=== PATIENT | female | born 1945 | race Caucasian/White ===

== ENCOUNTER 2023-10-15 10:47 | Outpatient (AMB) | payer MEDICARE, MEDICAID, SELFPAY ==
--- NOTE | 2023-10-15 11:24 | MHC.PC.OV ---
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 Intake Note: New patient visit Operating System Programmer Required: Yes Operating System Programmer Name: Daughter translating Accompanied by: Child Allergies pineapple Allergy (Mild, Uncoded 10/15/23 11:42) rash Medication List - Last Reconciled 10/15/23 by Merlyn Malone, [facility] amlodipine 10 mg PO DAILY apixaban (Eliquis) 5 mg PO BID cholecalciferol (vitamin D3) 1,250 mcg PO QWEEK clopidogrel 75 mg PO DAILY digoxin 125 mcg PO DAILY furosemide 40 mg PO DAILY lisinopril 40 mg PO DAILY metoprolol tartrate 50 mg PO DAILY omeprazole 20 mg PO DAILY Tobacco use date assessed: 10/15/23 Fall risk assessment: 2 + Falls in past year Last assessed Fall Risk: 10/15/23 Dental Screening Dental Screen Date: 10/15/23 Did you have a dental visit in the last 12 months?: No Did you have a dental problem in the last 6 months where you did not have access to dental care?: No Was dental information given to patient?: No HPI HPI Comments History of Present Illness Details 78-year-old, [place] speaking female with arthrosclerosis of [place] arteries of bilateral lower extremities with pain and right leg with rest, gastroparesis, cardiomyopathy, AFib, right foot osteomyelitis, 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 C/o phantom limb pain and neuropathic pain right lower extremity GERD - does not have any medications, reports acid reflux symptoms described as burning in her abdomen. Insomnia, tried melatonin and other OTC w/o relief. Gets about 3 hours per night, if that. Naps during the day. Has never had a sleep study. Dtr reports she gets disoriented, repeats herself often. [facility] Medical History (Updated 10/15/23 @ 15:35 [facility] CAD (coronary artery disease), s[place] coronary artery Amputated toe of right foot Family History (Updated 10/15/23 @ 12:14 by Roseanne Win CMA) Mother HTN (hypertension) Diabetes Cardiovascular disease Skin cancer Father Substance abuse Alcoholism Social History Housing: Apartment Patient Tobacco Use Status: Never used Tobacco e-Cigarette/Vaping Use: Never Used Second Hand Smoke Exposure: No service: No Current occupational status: retired Current occupational exposures/hazards: No Cognitive needs: Yes Hearing needs: Yes Vision needs: No Questionnaire PHQ-9 Over the last 2 weeks, how often have you been bothered by any of the following problems? 1. Little interest or pleasure in doing things: several days 2. Feeling down, depressed, or hopeless: several days 3. Trouble falling or staying asleep, or sleeping too much: nearly every day 4. Feeling tired or having little energy: nearly every day 5. Poor appetite or overeating: not at all 6. Feeling bad about yourself - or that you are a failure or have let yourself or your family down: not at all 7. Trouble concentrating on things, such as reading the newspaper or watching television: not at all 8. Moving or speaking so slowly that other people could have noticed. Or the opposite - being so fidgety or restless that you have been moving around a lot more than usual: several days 9. Thoughts that you would be better off or of hurting yourself in some way: not at all Total score: 9 Depression Screening Interpretation: Positive Depression Screening Follow-up: Follow-up Visit Requested Depression Screening Done: Yes 60418 - PHQ-9 Billing: Yes Source: Developed by Drs. Dat Mendes, Porsche Bah, Avila Matson and colleagues, with an educational frank from [employer]. Thrive Questionnaire Date Thrive assessed: 10/15/23 I am a: Parent/Caregiver What is your living situation today?: I have a steady place to live Within the past 12 months, did the food you bought not last and you didn't have the money to get more?: Never true Within the past 12 months, did you worry whether your food would run out before you got money to buy more?: Never true Do you have trouble paying for medicines?: No Do you have trouble getting transportation to medical appointments?: No Do you have trouble paying your heating and electricity bill?: No Do you have trouble taking care of your child, family member or friend?: Yes Do you have trouble with day-to-day activities such as bathing, preparing meals, shopping, managing finances, etc.?: No Are you currently unemployed and looking for a job?: No Are you interested in more education?: No Please select the resources that you would like help with: None Currently or been in a relationship where the following occur: no concerns reported THRIVE Score: 0 AUDIT C Alcohol Use Questionnaire (AUDIT-C) 1. How often do you have a drink containing alcohol?: Never 3. How often do you have six or more drinks on one occasion?: Never Total Score: 0 Score Reviewed/Action Taken: Yes NINO-7 AMB Questionnaire NINO-7 Date NINO - 7 assessed: 10/15/23 Feeling nervous, anxious, or on edge: 0 = Not at all Not being able to stop or control worryin = Not at all Worrying too much about different things: 2 = More than half the days Trouble relaxin = More than half the days Being so restless that it is hard to sit still: 1 = Several days Becoming easily annoyed or irritable: 1 = Several days Feeling afraid as if something awful might happen: 0 = Not at all Total NINO-7 score (0-4 normal; 5-9 mild; 10-14 moderate; 15-21 severe): 6 Source: Developed by Drs. Dat Mendes, Porsche Bah, Avila Matson and colleagues, with an educational frank from [employer]. NINO-7 Assessment Billing NINO-7 Assessment Tool: NINO-7 Assessment 84860 ACT Questionnaire In the past 4 weeks, how much of the time did your asthma keep you from getting as much done at work, school or at home?: Some of the time During the past 4 weeks, how often have you had shortness of breath?: 3-6 times a week During the past 4 weeks, how often did your asthma symptoms wake you up at night or earlier than usual in the morning?: Not at all During the past 4 weeks, how often have you had to use your rescue inhaler or nebulizer medication?: Not at all How would you rate your asthma control during the past 4 weeks?: Somewhat controlled ACT Interpretation: Positive Score: 19 Review of Systems Const All systems reviewed & are unremarkable except as noted in HPI and below Physical exam (Primary Care) Vital Signs: Last Vital Signs Temp 98.4 F 10/15/23 11:30 Pulse 83 10/15/23 11:30 Resp 14 10/15/23 11:30 BP 128/70 10/15/23 11:30 Pulse Ox 97 10/15/23 11:30 BMI result Body Mass Index 26.0 Tobacco/Smoking Status: Tobacco use Status Tobacco use date assessed 10/15/23 10/15/23 11:33 Patient Tobacco Use Status Never used Tobacco 10/15/23 11:33 e-Cigarette/Vaping Use Never Used 10/15/23 11:33 PHQ-9: PHQ-9 Score PHQ-9: Total score 9 10/15/23 12:17 Depression Screening Interpretation: Positive Depression Screening Follow-up: Follow-up Visit Requested Thrive Assessment: Date of Thrive Assessment Date Thrive assessed 10/15/23 10/15/23 12:10 Currently or been in a relationship where the following occur: no concerns reported Const Other: awake alert accompanied by dtr, pleasant, cooperative PAF, 1/6 systolic murmur LS with ins/exp wheeze, faint, throughout BLE nonpalp pedal pulses, skin w chronic hemosiderin. Right foot s/p great and 2nd toe amps with well healed surgical incision. No edema BLE Assessment and Plan Assessment & Plan (1) ILD (interstitial lung disease): Comment: Refer to pulmonology for further evaluation and treatment. Code(s): J84.9 - Interstitial pulmonary disease, unspecified (2) Lung nodules: Comment: Refer to pulmonology for further evaluation and treatment. These nodules were noted on imaging done in [place]. The family has brought these results and they will be scanned to the chart. Code(s): R91.8 - Other nonspecific abnormal finding of lung field (3) Daytime somnolence: Comment: We will check a sleep study. Code(s): R40.0 - Somnolence (4) Afib: Comment: Rate controlled on Eliquis and metoprolol. Refer to Cardiology Code(s): I48.91 - Unspecified atrial fibrillation Qualifiers: Atrial fibrillation type: paroxysmal Qualified Code(s): I48.0 - Paroxysmal atrial fibrillation (5) Diabetes mellitus type 2 with complications: Comment: Hemoglobin A1c 6.9% today. Not currently on any diabetic medications. There is a note of diabetic retinopathy this did in her previous medical records we will need to refer for diabetic eye exam. Code(s): E11.8 - Type 2 diabetes mellitus with unspecified complications (6) CHF (congestive heart failure): Comment: Euvolemic on exam today, maintained on amlodipine 10 mg p.o. daily, furosemide 40 mg p.o. daily, metoprolol 50 mg p.o. daily. Refer to cardiology Code(s): I50.9 - Heart failure, unspecified Qualifiers: Heart failure type: systolic Heart failure chronicity: chronic Qualified Code(s): I50.22 - Chronic systolic (congestive) heart failure (7) Hiatal hernia with GERD without esophagitis: Comment: Start on omeprazole 20 mg p.o. q.day. Return to office in 2 weeks to see if this is working. Code(s): K44.9 - Diaphragmatic hernia without obstruction or gangrene; K21.9 - Gastro-esophageal reflux disease without esophagitis (8) Secondary hypercoagulable state: Comment: Secondary to AFib currently maintained on Eliquis. Code(s): D68.69 - Other thrombophilia (9) Coronary artery disease with angina pectoris: Comment: Maintained on Plavix, lisinopril 40 mg p.o. daily, metoprolol, amlodipine. Last episode of angina occurring less than 12 months ago. Her med list does not include a statin. We will follow up with the daughter next week to see why she has not on a statin. Refer to Cardiology for further evaluation and treatment Code(s): I25.119 - Atherosclerotic heart disease of [place] coronary artery with unspecified angina pectoris Qualifiers: Coronary Disease-Associated Artery/Lesion type: [place] artery [place] vs. transplanted heart: s[place] heart Qualified Code(s): I25.119 - Atherosclerotic heart disease of [place] coronary artery with unspecified angina pectoris (10) Hyperlipidemia: Comment: We will check a direct LDL today as she has not fasting. She has not currently maintained on a statin at least not that is recorded on her med list today. We will review with daughter next week. LDL goal will be less than 70 Code(s): E78.5 - Hyperlipidemia, unspecified Qualifiers: Hyperlipidemia type: mixed hyperlipidemia Qualified Code(s): E78.2 - Mixed hyperlipidemia (11) Diabetic retinopathy: Comment: This was noted in her medical records. We will need to refer for diabetic eye exam Code(s): E11.319 - Type 2 diabetes mellitus with unspecified diabetic retinopathy without macular edema Qualifiers: Diabetes mellitus type: type 2 Diabetic retinopathy severity: with unspecified retinopathy severity Plan This note is constructed using voice recognition software. While every effort has been made to ensure accuracy in community advocate, still errors may have been included Sometimes, these errors may affect the content or meaning of the given sentence . Total time spent caring for the patient today was 60 minutes. This includes time spent before the visit reviewing the chart, time spent during the visit, and time spent after the visit on documentation Orders: Orders LDL Cholesterol Direct Today E11.8 - Type 2 diabetes mellitus with unspecified complications, I25.10 - Atherosclerotic heart disease of [place] coronary artery without angina pectoris Hemoglobin A1c Today E11.8 - Type 2 diabetes mellitus with unspecified complications, I25.10 - Atherosclerotic heart disease of [place] coronary artery without angina pectoris Parathyroid Hormone Intact Today E11.8 - Type 2 diabetes mellitus with unspecified complications, I25.10 - Atherosclerotic heart disease of [place] coronary artery without angina pectoris RT home sleep study Today I48.91 - Unspecified atrial fibrillation, R40.0 - Somnolence Comprehensive Met. Panel Today E11.8 - Type 2 diabetes mellitus with unspecified complications, I25.10 - Atherosclerotic heart disease of [place] coronary artery without angina pectoris Microalbumin, Random (w Creat) Today E11.8 - Type 2 diabetes mellitus with unspecified complications, I25.10 - Atherosclerotic heart disease of [place] coronary artery without angina pectoris TSH reflex Free T4 Today E11.8 - Type 2 diabetes mellitus with unspecified complications, I25.10 - Atherosclerotic heart disease of [place] coronary artery without angina pectoris Vitamin D 1,25 dihydroxy Today E11.8 - Type 2 diabetes mellitus with unspecified complications, I25.10 - Atherosclerotic heart disease of [place] coronary artery without angina pectoris Magnesium Today E11.8 - Type 2 diabetes mellitus with unspecified complications, I25.10 - Atherosclerotic heart disease of [place] coronary artery without angina pectoris Phosphorus Today E11.8 - Type 2 diabetes mellitus with unspecified complications, I25.10 - Atherosclerotic heart disease of [place] coronary artery without angina pectoris Referrals Pulmonology Referral J84.9 - Interstitial pulmonary disease, unspecified, R91.8 - Other nonspecific abnormal finding of lung field Cardiology Referral I25.10 - Atherosclerotic heart disease of [place] coronary artery without angina pectoris, I48.91 - Unspecified atrial fibrillation, I50.9 - Heart failure, unspecified Medications: New omeprazole 20 mg PO DAILY 90 caps 1RF Coding Level of Care Code New Pt Level 5 (55426) Diagnoses ILD (interstitial lung disease) J84.9 Lung nodules R91.8 Daytime somnolence R40.0 Paroxysmal atrial fibrillation I48.0 Atrial fibrillation type: paroxysmal Diabetes mellitus type 2 with complications E11.8 Chronic systolic congestive heart failure I50.22 Heart failure type: systolic Heart failure chronicity: chronic Hiatal hernia with GERD without esophagitis K44.9; K21.9 Secondary hypercoagulable state D68.69 Coronary artery disease involving [place] coronary artery of [place] heart with angina pectoris I25.119 Coronary Disease-Associated Artery/Lesion type: [place] artery [place] vs. transplanted heart: [place] heart Mixed hyperlipidemia E78.2 Hyperlipidemia type: mixed hyperlipidemia Diabetic retinopathy E11.319 Diabetes mellitus type: type 2 Diabetic retinopathy severity: with unspecified retinopathy severity Additional Codes NINO-7 Assessment Billing - NINO-7 Assessment Tool: NINO-7 Assessment [id number] ([id number])
[2023-10-15 11:30] VITALS: BP 128/70; PULSE 83; RESP 14; TEMP 36.9; O2SAT 97; BMI 26.0
== END 2023-10-15 12:19 | disposition home or self-care (01) ==
PROVIDERS: PCP Nurse Practitioner Family; Visit Provider Nurse Practitioner Family
DX: J84.9 Interstitial pulmonary disease, unspecified (principal); I48.0 Paroxysmal atrial fibrillation; E11.8 Type 2 diabetes mellitus with unspecified complications; I50.22 Chronic systolic (congestive) heart failure; D68.69 Other thrombophilia; I25.119 Atherosclerotic heart disease of native coronary artery with unspecified angina pectoris; E11.319 Type 2 diabetes mellitus with unspecified diabetic retinopathy without macular edema; R91.8 Other nonspecific abnormal finding of lung field; R40.0 Somnolence; K44.9 Diaphragmatic hernia without obstruction or gangrene; K21.9 Gastro-esophageal reflux disease without esophagitis; E78.2 Mixed hyperlipidemia
CPT/HCPCS: 99205

== ENCOUNTER 2023-10-15 12:04 | Outpatient (REF) | payer MEDICARE, SELFPAY ==
[2023-10-15 14:46] LABS: Estimated Average Glucose 151 mg/dL; Hemoglobin A1c % 6.9 % (<6.0)
[2023-10-15 15:37] LABS: Creatinine Urine 128.73 mg/dL; Microalbum/Creatinine Ratio Ur 83.8 ug/mg cr (<30)
[2023-10-15 15:47] LABS: Alanine Aminotransferase 15 U/L (0-31); Albumin Level 4.1 g/dL (3.5-5.0); Alkaline Phosphatase 94 U/L (39-117); Anion Gap 16 (12-20); Aspartate Amino Transferase 24 U/L (5-31); Bilirubin Total 0.7 mg/dL (0.0-1.0); Blood Urea Nitrogen 17 mg/dL (9-16); Calcium 9.4 mg/dL (8.4-10.2); Carbon Dioxide 23 mmol/L (22-29); Chloride 106 mmol/L (96-108); Estimated Glomerular Filt Rate 58; Glucose Random 195 mg/dL (60-115); Magnesium 2.2 mg/dL (1.6-2.6); Phosphorus 3.7 mg/dL (2.7-4.5); Potassium 3.9 mmol/L (3.3-5.1); Sodium 141 mmol/L (135-145)
[2023-10-15 15:50] LABS: Parathyroid Hormone Intact 97.8 pg/mL (8.7-77.1)
[2023-10-15 15:53] LABS: TSH reflex Free T4 1.37 uIU/mL (0.32-4.0)
[2023-10-16 13:04] LABS: LDL Cholesterol Direct 135 mg/dL (<100)
[2023-10-20 20:03] LABS: VITAMIN D (1,25 OH) D3 27 pg/mL; Vit D (1,25-Dihydroxy) Total 27 pg/mL (18-72); Vitamin D (1,25 OH) D2 <8 pg/mL
== END 2023-10-15 12:05 | disposition home or self-care (01) ==
LOC: HO.WFDLDS 12:04
PROVIDERS: Visit Provider Nurse Practitioner Family
DX: E11.8 Type 2 diabetes mellitus with unspecified complications (principal); I25.10 Atherosclerotic heart disease of native coronary artery without angina pectoris
CPT/HCPCS: 36415; 80053; 82043; 82570; 82652; 83036; 83721; 83735; 83970; 84100; 84443

== ENCOUNTER 2023-10-22 09:50 | Outpatient (AMB) | payer MEDICARE, MEDICAID, SELFPAY ==
--- NOTE | 2023-10-22 09:54 | MHC.PC.OV ---
Vital Signs 10/22/23 10:02 Height 5 ft 1 in Weight 141 lb 4 oz BMI 26.7 BP 124/83 Blood Pressure Location Lt brachial Position Sitting Respiration 11 L Pulse 67 Pulse Source Pulse Oximeter Temp 97.7 F Temp Source Temporal Artery Scan Pulse Oximetry (%) 96 Oxygen Delivery Method Room Air Intake Visit Reasons: follow up labs Intake Note: Patient is here with her daughter, Tracey. Patient is here to review labs. Tracey would like to know if the provider can send all of the patients medications- so the patient will not run out. Gas Well Pumper Required: Yes Gas Well Pumper Language: Asparagus Cutter Name: Daughter- Tracey Accompanied by: Daughter Allergies pineapple Allergy (Mild, Uncoded 10/22/23 10:15) rash Medication List - Last Reconciled 10/22/23 by DANO Tobias- amlodipine 10 mg PO DAILY apixaban (Eliquis) 5 mg PO BID cholecalciferol (vitamin D3) 1,250 mcg PO QWEEK clopidogrel 75 mg PO DAILY digoxin 125 mcg PO DAILY furosemide 40 mg PO DAILY lisinopril 40 mg PO DAILY metoprolol tartrate 50 mg PO DAILY omeprazole 20 mg PO DAILY Tobacco use date assessed: 10/15/23 Dental Screening Dental Screen Date: 10/15/23 HPI HPI Comments History of Present Illness Details 78-year-old, [place] speaking female with 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 of bilateral lower extremities with pain and right leg with rest, gastroparesis, cardiomyopathy, AFib, right foot osteomyelitis, right foot 1st and 2nd toe amputation, PMR, left ankle osteoarthritis, cervical myalgia, hyperlipidemia, bilateral lower extremity edema, diabetes type 2, diabetic retinopathy, diabetic neuropathy, GERD, CHF, angina, chronic interstitial lung disease, lung nodules, hiatal hernia, CKD3 with secondary hyperparathyroidism Health Maintenance: Mammo Colon DEXA Pap HgA1c 10/16/2023 6.9% DME Specialists: [facility] Here today to f/u: Did not start PPI - states pharm did not call her. Pt does report burning is better w/o intervention. Has appt w/ Sleep Med, Cards, Pulm Thinks scheduled in November and January. New complaint today of azam finger on the left hand, ring finger, has been present for years. Creates difficulty in picking things up. Does have pain at times. Has DM retinopathy, needs referral to Optho Pt and dtr unsure why she is not on statin; has never had s/e to their knowledge. Labs from October 15 show normal electrolytes BUN 17, creatinine 0.9, random glucose 195, phosphorus, magnesium, normal calcium, normal LFTs, LDL 135, vitamin-D normal, normal TSH, elevated parathyroid hormone 97.8, elevated urine microalbumin creatinine ratio 83.8 [facility] Medical History (Updated 10/22/23 @ 13:20 by Merlyn Malone, [facility]) CAD (coronary artery disease), [place] coronary artery Amputated toe of right foot Family History (Updated 10/15/23 @ 12:14 by Roseanne Win [facility]) Mother HTN (hypertension) Diabetes Cardiovascular disease Skin cancer Father Substance abuse Alcoholism Social History Housing: Apartment Patient Tobacco Use Status: Never used Tobacco e-Cigarette/Vaping Use: Never Used Second Hand Smoke Exposure: No service: No Current occupational status: retired Current occupational exposures/hazards: No Cognitive needs: Yes Hearing needs: Yes Vision needs: No Questionnaire Thrive Questionnaire Date Thrive assessed: 10/15/23 NINO-7 AMB Questionnaire NINO-7 Date NINO - 7 assessed: 10/15/23 Source: Developed by Drs. Dat Mendes, Porsche Bah, Avila Matson and colleagues, with an educational frank from [employer]. Review of Systems Const All systems reviewed & are unremarkable except as noted in HPI and below Physical exam (Primary Care) Vital Signs: Last Vital Signs Temp 97.7 F 10/22/23 10:02 Pulse 67 10/22/23 10:02 Resp 11 L 10/22/23 10:02 BP 124/83 10/22/23 10:02 Pulse Ox 96 10/22/23 10:02 Oxygen Delivery Method Room Air 10/22/23 10:02 BMI result Body Mass Index 26.7 Tobacco/Smoking Status: Tobacco use Status Tobacco use date assessed 10/15/23 10/22/23 09:54 Patient Tobacco Use Status Never used Tobacco 10/22/23 09:54 e-Cigarette/Vaping Use Never Used 10/22/23 09:54 Thrive Assessment: Date of Thrive Assessment Date Thrive assessed 10/15/23 10/22/23 09:54 Advance Care Planning discussion: Exists, not on file Date of discussion: 10/22/23 Who was present: dtr and patient Forms completed: Health Care Proxy and MOLST Time spent: 1-15 minutes, not on file Actual minutes spent: 5 Const Other: awake alert accompanied by dtr, pleasant, cooperative PAF, 1/6 systolic murmur LS with ins/exp wheeze, faint, throughout BLE nonpalp pedal pulses, skin w chronic hemosiderin. Right foot s/p great and 2nd toe amps with well healed surgical incision. No edema BLE Bilat hands w/ dupytrens contractures, Left ring finger mostly effected Assessment and Plan Assessment & Plan (1) Diabetic retinopathy: Comment: This was noted in her medical records. refer for diabetic eye exam Code(s): E11.319 - Type 2 diabetes mellitus with unspecified diabetic retinopathy without macular edema Qualifiers: Diabetes mellitus type: type 2 Diabetic retinopathy severity: with unspecified retinopathy severity Diabetes mellitus macular edema: macular edema presence unspecified Laterality: unspecified laterality Qualified Code(s): E11.319 - Type 2 diabetes mellitus with unspecified diabetic retinopathy without macular edema (2) Dupuytren's contracture of both hands: Comment: discussed treatment options, injections, referrals, OT. Declines all of the above Code(s): M72.0 - Palmar fascial fibromatosis [Dupuytren] (3) Secondary hyperparathyroidism (of renal origin): Comment: Labs from October 16 2023 show normal electrolytes BUN 17, creatinine 0.9,, random glucose 195 phosphorus, magnesium, normal calcium, vitamin-D pending, elevated parathyroid hormone 97.8, elevated urine microalbumin creatinine ratio 83.8 Code(s): N25.81 - Secondary hyperparathyroidism of renal origin (4) CKD (chronic kidney disease) stage 3, GFR 30-59 ml/min: Comment: 10/2023 eGFR 58 Labs from October 16 2023 show normal electrolytes BUN 17, creatinine 0.9,, random glucose 195 phosphorus, magnesium, normal calcium, vitamin-D pending, elevated parathyroid hormone 97.8, elevated urine microalbumin creatinine ratio 83.8 Code(s): N18.30 - Chronic kidney disease, stage 3 unspecified Qualifiers: Chronic kidney disease stage 3 subtype: stage 3a (GFR 45-59) Qualified Code(s): N18.31 - Chronic kidney disease, stage 3a (5) Hyperlipidemia: Comment: LDL goal will be less than 70 4/12/24 LDL 134 Start Rosuvastatin 10mg po QD. Repeat labs in 3 months, follow w/ Cards Code(s): E78.5 - Hyperlipidemia, unspecified Qualifiers: Hyperlipidemia type: mixed hyperlipidemia Qualified Code(s): E78.2 - Mixed hyperlipidemia (6) Amputated toe of right foot: Comment: current, right foot 1st and 2nd toe amputation Code(s): S98.131A - Complete traumatic amputation of one right lesser toe, initial encounter (7) Secondary hyperaldosteronism: Comment: related to CHF, on furosemide Referred to Cards Code(s): E26.1 - Secondary hyperaldosteronism (8) Hiatal hernia with GERD without esophagitis: Comment: Start on omeprazole 20 mg p.o. q.day. -- Resent today. Code(s): K44.9 - Diaphragmatic hernia without obstruction or gangrene; K21.9 - Gastro-esophageal reflux disease without esophagitis Orders: Orders Comprehensive [place]. Panel Fast 01/03/24 E11.8 - Type 2 diabetes mellitus with unspecified complications, E26.1 - Secondary hyperaldosteronism, E78.2 - Mixed hyperlipidemia, I50.22 - Chronic systolic (congestive) heart failure, N18.31 - Chronic kidney disease, stage 3a, N25.81 - Secondary hyperparathyroidism of renal origin Lipid Panel 01/03/24 E11.8 - Type 2 diabetes mellitus with unspecified complications, E26.1 - Secondary hyperaldosteronism, E78.2 - Mixed hyperlipidemia, I50.22 - Chronic systolic (congestive) heart failure, N18.31 - Chronic kidney disease, stage 3a, N25.81 - Secondary hyperparathyroidism of renal origin Hemoglobin A1c 01/03/24 E11.8 - Type 2 diabetes mellitus with unspecified complications, E26.1 - Secondary hyperaldosteronism, E78.2 - Mixed hyperlipidemia, I50.22 - Chronic systolic (congestive) heart failure, N18.31 - Chronic kidney disease, stage 3a, N25.81 - Secondary hyperparathyroidism of renal origin Referrals Ophthalmology Referral E11.319 - Type 2 diabetes mellitus with unspecified diabetic retinopathy without macular edema Medications: New rosuvastatin 10 mg PO DAILY 90 tabs 1RF amlodipine 10 mg PO DAILY 90 tabs 1RF apixaban (Eliquis) 5 mg PO BID 180 tabs 0RF cholecalciferol (vitamin D3) 1,250 mcg PO QWEEK 12 caps 0RF furosemide 40 mg PO DAILY 90 tabs 0RF metoprolol tartrate 50 mg PO DAILY 90 tabs 0RF clopidogrel 75 mg PO DAILY 90 tabs 0RF digoxin 125 mcg PO DAILY 90 tabs 0RF lisinopril 40 mg PO DAILY 90 tabs 0RF Refilled omeprazole 20 mg PO DAILY 90 caps 1RF Patient Instructions: FU IN 6 MONTHS, WITH REPEAT LABS 1 WEEK BEFORE, CHRONIC CONDITION MGMT, SOONER PRN Diabetes & CHF Goal: maintain a1c < 7% without medication; monitor weight at home daily & report gains of > 3lbs in 1 day or 5 lbs/1 week. Follow up with Cardiology & take meds as directed. Barrier: language, cognition Coding Level of Care Code Est Pt Level 5 (39565) Complex EM visit Add On G2211 Diagnoses Diabetic retinopathy associated with type 2 diabetes mellitus, macular edema presence unspecified, unspecified laterality, unspecified retinopathy severity E11.319 Diabetes mellitus type: type 2 Diabetic retinopathy severity: with unspecified retinopathy severity Diabetes mellitus macular edema: macular edema presence unspecified Laterality: unspecified laterality Dupuytren's contracture of both hands M72.0 Secondary hyperparathyroidism (of renal origin) N25.81 Stage 3a chronic kidney disease N18.31 Chronic kidney disease stage 3 subtype: stage 3a (GFR 45-59) Mixed hyperlipidemia E78.2 Hyperlipidemia type: mixed hyperlipidemia Amputated toe of right foot S98.131A Secondary hyperaldosteronism E26.1 Hiatal hernia with GERD without esophagitis K44.9; K21.9 Additional Codes Vital Signs *Quality* - Advance Care Planning discussion: Exists, not on file ([id number]) Vital Signs *Quality* - Time spent: 1-15 minutes, not on file ([id number])
[2023-10-22 10:02] VITALS: BP 124/83; PULSE 67; RESP 11; TEMP 36.5; O2SAT 96; BMI 26.7
== END 2023-10-22 11:01 | disposition home or self-care (01) ==
PROVIDERS: PCP Nurse Practitioner Family; Visit Provider Nurse Practitioner Family
DX: E11.319 Type 2 diabetes mellitus with unspecified diabetic retinopathy without macular edema (principal); N25.81 Secondary hyperparathyroidism of renal origin; N18.31 Chronic kidney disease, stage 3a; S98.131A Complete traumatic amputation of one right lesser toe, initial encounter; E26.1 Secondary hyperaldosteronism; M72.0 Palmar fascial fibromatosis [Dupuytren]; E78.2 Mixed hyperlipidemia; K44.9 Diaphragmatic hernia without obstruction or gangrene; K21.9 Gastro-esophageal reflux disease without esophagitis; Z00.00 Encounter for general adult medical examination without abnormal findings
CPT/HCPCS: 1124F; 99215; G2211

== ENCOUNTER 2023-10-27 14:19 | Outpatient (AMB) | payer MEDICARE, MEDICAID, SELFPAY ==
--- NOTE | 2023-10-27 14:22 | A.OFFVIS_ITS ---
Vital Signs 10/27/23 14:23 Height 5 ft 1 in Weight 141 lb 8 oz BMI 26.7 BP 118/74 Blood Pressure Location Lt brachial Position Sitting Pulse 71 Pulse Source Pulse Oximeter Pulse Oximetry (%) 96 Oxygen Delivery Method Room Air Intake Visit Reasons: Interstitial pulmonary disease Allergies pineapple Allergy (Mild, Uncoded 10/27/23 14:26) rash HPI HPI Interstitial pulmonary disease: Details: Marleni is a pleasant 78 year old female, never smoker, with underlying pulmonary nodules, interstitial lung disease, CAD, afib on eliquis, DMII, CHF, CKDIII and GERD. She was referred for pulmonary evaluation for evaluation of interstitial lung disease and pulmonary nodules. She recently moved from [place] and [facility] She reports symptoms of dyspnea on minimal exertion, wheezing and dry cough that has been present for the last two years. She states symptoms started after diagnosis of afib and CHF, which initially presented with BLE and orthopnea, significantly improved since initiating lasix. Per referral, ILD and pulmonary nodules, no prior report or imaging in chart. She denies any prior history of asthma. She denies any occupational exposures. She denies pertinent family history. She does report a prior diagnosis of lupus, not under the care of rheumatology. [facility] Medical History (Updated 10/27/23 @ 16:30 by Aye Wiseman NP) CAD (coronary artery disease), [place] coronary artery Amputated toe of right foot Family History (Updated 10/15/23 @ 12:14 by Roseanne Win CMA) Mother HTN (hypertension) Diabetes Cardiovascular disease Skin cancer Father Substance abuse Alcoholism Social History Housing: Apartment Patient Tobacco Use Status: Never used Tobacco e-Cigarette/Vaping Use: Never Used Second Hand Smoke Exposure: No service: No Current occupational status: retired Current occupational exposures/hazards: No Cognitive needs: Yes Hearing needs: Yes Vision needs: No Review of Systems Const Denies chills, Denies excessive sweating, Denies fever(s), Denies headache(s) and Denies night sweats Eyes Denies dry eyes, Denies irritation and Denies itchy eyes ENT Reports Normal hearing present, Denies headache(s), Denies nasal congestion, Denies nasal discharge, Denies post nasal drip and Denies sore throat Card Denies chest pain, Denies chest pain at rest, Denies chest pain with activity, Denies claudication, Denies leg edema, Denies orthopnea and Denies paroxysmal nocturnal dyspnea Resp Denies chest congestion, Denies excessive phlegm production, Denies pain on inspiration, Denies pain with cough and Denies stridor Musc Denies myalgias Neuro Reports Normal hearing present and Denies headache(s) Endo Denies excessive sweating Benji/Lymph Denies lymphadenopathy Aller/Immun Denies itchy eyes and Denies seasonal rhinorrhea Physical Exam Vital Signs: Last Vital Signs Pulse 71 10/27/23 14:23 BP 118/74 10/27/23 14:23 Pulse Ox 96 10/27/23 14:23 Oxygen Delivery Method Room Air 10/27/23 14:23 BMI result Body Mass Index 26.7 Const General: cooperative, healthy appearing, comfortable, no acute distress, well developed and alert Orientation/consciousness: patient oriented x3 Limitations: ambulation with cane HEENT Head: Yes normal to inspection, Yes normocephalic and Yes atraumatic Ears: hearing grossly normal bilaterally and external ears normal Eyes General: appearance normal, both eyes and all related structures Eyelids: Yes eyelids normal Sclerae: sclerae normal EOM: EOMs intact bilaterally Neck Neck: Yes normal visual inspection and Yes no lymphadenopathy Lymphatic: no lymphadenopathy noted Chest Chest palpation & inspection: normal inspection of the chest Resp Effort & Inspection: normal respiratory effort, able to speak in complete sentences, no audible wheezes, no cough, no stridor, not tachypneic, no tripod positioning and no use of accessory muscles Auscultation: clear to auscultation bilaterally Cardio Jugular venous distension: no JVD Skin Other: warm, dry General skin exam: no rashes or lesions noted Neuro General: patient oriented x3 Cranial nerves: Yes Normal hearing present Cognition (Neuro): normal cognition Gait exam (Neuro): Normal gait present Extrem General: Yes normal to inspection, Yes capillary refill normal, Yes no clubbing, cyanosis or edema and Yes no pedal edema Psych Appearance: grossly normal and well kempt Speech and movement: Normal speech and movement present and Clear speech present Affect: normal affect Attitude: cooperative Thought process: Normal thought process present Thought content: Normal thought content present Insight: Good insight present (Psych) Judgement: Good judgement present (Psych) Office Procedures 6 Minute Walk Time:: 14:55 SPO2 % at rest: 95 Pulse at rest: 77 SPO2 % during excercise: 90 Pulse during excercise: 131 SPO2 % after excercise: 91 Pulse after excercise: 102 Distance in yards walked: 10 Beto Score: 4 Performance Observations:: Patient walked with the assistance of a cane on level ground for approx 10 yards. O2 saturation decreased to 90% and pulse rate was elevated to 131. Patient complained of low back pain and the walk was stopped. Patient denied shortness of breath or chest pain. After sitting O2 sat increased to 91 and pulse rate decreased to 102. No supplemental O2 was used. [id number] - 6 Minute Walk Assessment & Plan Assessment & Plan (1) ILD (interstitial lung disease): Comment: Refer to pulmonology for further evaluation and treatment. Code(s): J84.9 - Interstitial pulmonary disease, unspecified Category: Medical (2) Lung nodules: Comment: Refer to pulmonology for further evaluation and treatment. These nodules were noted on imaging done in [place]. The family has brought these results and they will be scanned to the chart. Code(s): R91.8 - Other nonspecific abnormal finding of lung field Category: Medical (3) Dyspnea: Code(s): R06.00 - Dyspnea, unspecified Category: Medical (4) CHF (congestive heart failure): Comment: Euvolemic on exam today, maintained on amlodipine 10 mg p.o. daily, furosemide 40 mg p.o. daily, metoprolol 50 mg p.o. daily. Refer to cardiology Code(s): I50.9 - Heart failure, unspecified Category: Medical Qualifiers: Heart failure type: systolic Heart failure chronicity: chronic Qualified Code(s): I50.22 - Chronic systolic (congestive) heart failure Plan Patient referred for evaluation of pulmonary nodules, ILD and dyspnea on exertion. Will send for PFT to assess for any restrictive or obstructive defect. Will also send for chest CT to evaluate of ILD. 6MWT attempted and patient could not complete due to lower back pain and elevated HR, lowest oxyen saturation 90, highest HR 131 bpm. She does have an upcoming evaluation with cardiology to establish care. All questions were answered and patient is in agreement of plan. Will follow up to review results or sooner if needed. Orders: Orders AMB 6 minute walk Today J84.9 - Interstitial pulmonary disease, unspecified CT chest wo IV con Today J84.9 - Interstitial pulmonary disease, unspecified PFT pulmonary function test Today J84.9 - Interstitial pulmonary disease, unspecified, R06.00 - Dyspnea, unspecified Coding Level of Care Code New Pt Level 4 (68925) Diagnoses ILD (interstitial lung disease) J84.9 Lung nodules R91.8 Dyspnea R06.00 Chronic systolic congestive heart failure I50.22 Heart failure type: systolic Heart failure chronicity: chronic CPT Codes Coding ([id number])
[2023-10-27 14:23] VITALS: BP 118/74; PULSE 71; O2SAT 96; BMI 26.7
[2023-10-27 15:43] VITALS: PULSE 77; O2SAT 95
== END 2023-10-27 15:11 | disposition home or self-care (01) ==
PROVIDERS: PCP Nurse Practitioner Family; Visit Provider Nurse Practitioner Family
DX: J84.9 Interstitial pulmonary disease, unspecified (principal); R91.8 Other nonspecific abnormal finding of lung field; R06.00 Dyspnea, unspecified; I50.22 Chronic systolic (congestive) heart failure
CPT/HCPCS: 94618; 99204

== ENCOUNTER → 2023-10-27 14:19 | Outpatient (BNVA) | payer MEDICARE, MEDICAID, SELFPAY | PROVIDERS: PCP Nurse Practitioner Family; Visit Provider Nurse Practitioner Family | DX: J84.9 Interstitial pulmonary disease, unspecified (principal); R91.8 Other nonspecific abnormal finding of lung field; R06.00 Dyspnea, unspecified; I50.22 Chronic systolic (congestive) heart failure | CPT/HCPCS: 94618; 99202 ==

== ENCOUNTER → 2023-11-23 14:50 | Outpatient (REF) | payer MEDICARE, MEDICAID, SELFPAY | LOC: HO.SL 14:50 | PROVIDERS: PCP Nurse Practitioner Family; Visit Provider Nurse Practitioner Family | DX: R40.0 Somnolence (principal); I48.91 Unspecified atrial fibrillation; G47.33 Obstructive sleep apnea (adult) (pediatric) | CPT/HCPCS: 95806 ==

== ENCOUNTER → 2023-11-23 14:56 | Outpatient (BNV) | payer MEDICARE, MEDICAID, SELFPAY | PROVIDERS: PCP Nurse Practitioner Family; Visit Provider Internal Medicine | DX: G47.33 Obstructive sleep apnea (adult) (pediatric) (principal) | CPT/HCPCS: 95806 ==

== ENCOUNTER 2023-12-08 07:34 | Outpatient (REF) | payer MEDICARE, MEDICAID, SELFPAY ==
--- NOTE | ~2023-12-08 | CT_ITS ---
EXAMINATION: CT CHEST WITHOUT CONTRAST CLINICAL INFORMATION: Interstitial pulmonary disease. COMPARISON: None available. TECHNIQUE: Multidetector volumetric CT imaging of the chest was done. Axial MIP volume rendering provided. Sagittal and coronal reformatted images were obtained. This CT examination was performed using dose optimization techniques as appropriate, variously including the following: *Automated exposure control *Adjustment of mA and/or kV according to patient size (this includes techniques or standardized protocols for targeted exams where dose is matched to indication/reason for exam; i.e. extremities or head) *Use of iterative reconstruction technique DLP: 140 mGy-cm FINDINGS: LUNGS AND PLEURA: Trachea and central airways are widely patent and normal in caliber. Mild centrilobular emphysema. Mild subpleural reticular opacities in both lungs without zonal predominance. Associated small subpleural cystic lucencies which are difficult to further characterize and could represent sites of traction bronchiolectasis, early honeycomb cyst formation and/or mild paraseptal emphysematous changes. Since there is no basilar predominance of disease, this is not a usual interstitial pneumonitis disease pattern. Lungs have mosaic attenuation. The heterogeneous lucencies in both lungs are consistent with air trapping phenomenon from airways inflammation. No pleural effusion. PULMONARY NODULES: 0.4 cm calcified granuloma in the lateral left lower lobe. Punctate calcified granuloma at the anteromedial right lung apex. 0.2 cm noncalcified nodule in the periphery of the left lower lobe (image 129, series 11). Based on Fleischner Society guidelines, no chest CT imaging follow-up is recommended. No suspicious pulmonary nodule or mass. CARDIOVASCULAR: The heart size is normal. No pericardial effusion. Atherosclerotic calcification of the thoracic aorta without aneurysm. The pulmonary artery trunk is mildly enlarged; this could be a manifestation of pulmonary arterial hypertension. CORONARY ARTERY CALCIFICATION: Multivessel coronary artery atherosclerotic calcification is present. MEDIASTINUM AND LOWER NECK: No mediastinal mass. The esophagus and thyroid gland are unremarkable. LYMPHATICS: There are lymph nodes within the mediastinum that measure up to 1 cm short axis dimension. No suspicious-appearing lymph nodes. No evidence of hilar or axillary lymphadenopathy. UPPER ABDOMEN: There is atherosclerotic calcification of the partially visualized abdominal aorta and splenic artery. SKELETAL: Bones are diffusely osteopenic. Multilevel osteophyte or enthesophyte formation of the spine. No acute or suspicious osseous abnormality. CT/CT chest wo IV con IMPRESSION: * Mild pulmonary emphysema. * Mild interstitial disease without a zonal predominance. Also, lungs have mosaic attenuation, suggestive of air trapping phenomenon, as may be seen in the setting of inflammation of airways. Consider possibility of manifestations of hypersensitivity pneumonitis. * No centrilobular nodules, groundglass changes or consolidation to suggest acute pneumonitis * Atherosclerotic disease of thoracic aorta and coronary arteries. * The pulmonary artery trunk is mildly enlarged; this could be a manifestation of pulmonary arterial hypertension.
== END 2023-12-08 07:35 | disposition home or self-care (01) ==
LOC: HO.CT 07:34
PROVIDERS: PCP Nurse Practitioner Family; Visit Provider Nurse Practitioner Family
DX: J84.9 Interstitial pulmonary disease, unspecified (principal)
CPT/HCPCS: 71250

== ENCOUNTER → 2023-12-19 19:30 | Outpatient (BNV) | payer MEDICARE, MEDICAID, SELFPAY | PROVIDERS: PCP Nurse Practitioner Family; Visit Provider Psychiatry & Neurology Neurology | DX: G47.33 Obstructive sleep apnea (adult) (pediatric) (principal) | CPT/HCPCS: 95811 ==

== ENCOUNTER → 2023-12-19 19:30 | Outpatient (REF) | payer MEDICARE, MEDICAID, SELFPAY | LOC: HO.SL 19:30 | PROVIDERS: PCP Nurse Practitioner Family; Visit Provider Nurse Practitioner Family | DX: G47.33 Obstructive sleep apnea (adult) (pediatric) (principal) | CPT/HCPCS: 95811 ==

== ENCOUNTER 2023-12-29 14:27 | Outpatient (AMB) | payer MEDICARE, MEDICAID, SELFPAY ==
[2023-12-29 14:31] VITALS: BP 130/76; PULSE 65; O2SAT 91; BMI 26.9
--- NOTE | 2023-12-29 14:31 | A.OFFVIS_ITS ---
Vital Signs 3 12/29/23 14:31 Height 5 ft 1 in Weight 142 lb 8 oz BMI 26.9 BP 130/76 Blood Pressure Location Lt brachial Position Sitting Pulse 65 Pulse Source Pulse Oximeter Pulse Oximetry (%) 91 L Oxygen Delivery Method Room Air Intake Visit Reasons: Interstitial pulmonary disease Allergies pineapple Allergy (Mild, Uncoded 12/29/23 14:34) rash HPI HPI Interstitial pulmonary disease: Details: Marleni is a pleasant 78 year old female, never smoker, with underlying pulmonary nodules, interstitial lung disease, CAD, afib on eliquis, DMII, CHF on lasix 40 mg, CKDIII and GERD. She reports symptoms of dyspnea, wheezing and dry cough that have been present for the past two years, ultimately diagnosed with afib and CHF. She has been maintained on eliquis and lasix with improvements in BLE edema and orthopnea, however continues with dyspnea on minimal exertion. There was question of ILD and patient was sent for chest CT. Today she presents to review chest CT results and home sleep study results. [facility] Medical History (Updated 01/03/24 @ 10:43 by Aye Wiseman NP) CAD (coronary artery disease), [place] coronary artery Amputated toe of right foot Family History (Updated 10/15/23 @ 12:14 by Roseanne Win CMA) Mother HTN (hypertension) Diabetes Cardiovascular disease Skin cancer Father Substance abuse Alcoholism Social History Housing: Apartment Patient Tobacco Use Status: Never used Tobacco e-Cigarette/Vaping Use: Never Used Second Hand Smoke Exposure: No service: No Current occupational status: retired Current occupational exposures/hazards: No Cognitive needs: Yes Hearing needs: Yes Vision needs: No Review of Systems Const Denies chills, Denies excessive sweating, Denies fever(s), Denies headache(s) and Denies night sweats Eyes Denies dry eyes, Denies irritation and Denies itchy eyes ENT Reports Normal hearing present, Denies headache(s), Denies nasal congestion, Denies nasal discharge, Denies post nasal drip and Denies sore throat Card Denies chest pain, Denies chest pain at rest, Denies chest pain with activity, Denies claudication, Denies leg edema, Denies orthopnea and Denies paroxysmal nocturnal dyspnea Resp Denies chest congestion, Denies excessive phlegm production, Denies pain on inspiration, Denies pain with cough and Denies stridor Musc Denies myalgias Neuro Reports Normal hearing present and Denies headache(s) Endo Denies excessive sweating Benji/Lymph Denies lymphadenopathy Aller/Immun Denies itchy eyes and Denies seasonal rhinorrhea Physical Exam Vital Signs: Last Vital Signs Pulse 65 12/29/23 14:31 BP 130/76 12/29/23 14:31 Pulse Ox 91 L 12/29/23 14:31 Oxygen Delivery Method Room Air 12/29/23 14:31 BMI result Body Mass Index 26.9 Const General: cooperative, healthy appearing, comfortable, no acute distress, well developed and alert Orientation/consciousness: patient oriented x3 Limitations: ambulation with cane HEENT Head: Yes normal to inspection, Yes normocephalic and Yes atraumatic Ears: hearing grossly normal bilaterally and external ears normal Eyes General: appearance normal, both eyes and all related structures Eyelids: Yes eyelids normal Sclerae: sclerae normal EOM: EOMs intact bilaterally Neck Neck: Yes normal visual inspection and Yes no lymphadenopathy Lymphatic: no lymphadenopathy noted Chest Chest palpation & inspection: normal inspection of the chest Resp Other: faint bibasilar inspiratory crackles Effort & Inspection: normal respiratory effort, able to speak in complete sentences, no audible wheezes, no cough, no stridor, not tachypneic, no tripod positioning and no use of accessory muscles Cardio Jugular venous distension: no JVD Skin Other: warm, dry General skin exam: no rashes or lesions noted Neuro General: patient oriented x3 Cranial nerves: Yes Normal hearing present Cognition (Neuro): normal cognition Gait exam (Neuro): Normal gait present Extrem General: Yes normal to inspection, Yes capillary refill normal, Yes no clubbing, cyanosis or edema and Yes no pedal edema Psych Appearance: grossly normal and well kempt Speech and movement: Normal speech and movement present and Clear speech present Affect: normal affect Attitude: cooperative Thought process: Normal thought process present Thought content: Normal thought content present Insight: Good insight present (Psych) Judgement: Good judgement present (Psych) Results Reviewed Results Reviewed: [address] [address] [address] Scan Report Signed Patient: Marleni Beltrán MR#: [id number] : 1945 Acct:[id number] Age/Sex: 78 / F ADM Date: 12/08/23 Loc: HO.CT Attending Dr: Aye Wiseman NP Ordering Physician: Aye Wiseman NP Date of Service: 12/08/23 Procedure(s): CT chest wo IV con Accession Number(s): [id number] cc: Merlyn Malone SEWER PIPE LAYER HELPER-; Aye Wiseman NP~ EXAMINATION: CT CHEST WITHOUT CONTRAST CLINICAL INFORMATION: Interstitial pulmonary disease. COMPARISON: None available. TECHNIQUE: Multidetector volumetric CT imaging of the chest was done. Axial MIP volume rendering provided. Sagittal and coronal reformatted images were obtained. This CT examination was performed using dose optimization techniques as appropriate, variously including the following: *Automated exposure control *Adjustment of mA and/or kV according to patient size (this includes techniques or standardized protocols for targeted exams where dose is matched to indication/reason for exam; i.e. extremities or head) *Use of iterative reconstruction technique DLP: 140 mGy-cm FINDINGS: LUNGS AND PLEURA: Trachea and central airways are widely patent and normal in caliber. Mild centrilobular emphysema. Mild subpleural reticular opacities in both lungs without zonal predominance. Associated small subpleural cystic lucencies which are difficult to further characterize and could represent sites of traction bronchiolectasis, early honeycomb cyst formation and/or mild paraseptal emphysematous changes. Since there is no basilar predominance of disease, this is not a usual interstitial pneumonitis disease pattern. Lungs have mosaic attenuation. The heterogeneous lucencies in both lungs are consistent with air trapping phenomenon from airways inflammation. No pleural effusion. PULMONARY NODULES: 0.4 cm calcified granuloma in the lateral left lower lobe. Punctate calcified granuloma at the anteromedial right lung apex. 0.2 cm noncalcified nodule in the periphery of the left lower lobe (image 129, series 11). Based on Fleischner Society guidelines, no chest CT imaging follow-up is recommended. No suspicious pulmonary nodule or mass. CARDIOVASCULAR: The heart size is normal. No pericardial effusion. Atherosclerotic calcification of the thoracic aorta without aneurysm. The pulmonary artery trunk is mildly enlarged; this could be a manifestation of pulmonary arterial hypertension. CORONARY ARTERY CALCIFICATION: Multivessel coronary artery atherosclerotic calcification is present. MEDIASTINUM AND LOWER NECK: No mediastinal mass. The esophagus and thyroid gland are unremarkable. LYMPHATICS: There are lymph nodes within the mediastinum that measure up to 1 cm short axis dimension. No suspicious-appearing lymph nodes. No evidence of hilar or axillary lymphadenopathy. UPPER ABDOMEN: There is atherosclerotic calcification of the partially visualized abdominal aorta and splenic artery. SKELETAL: Bones are diffusely osteopenic. Multilevel osteophyte or enthesophyte formation of the spine. No acute or suspicious osseous abnormality. CT/CT chest wo IV con IMPRESSION: * Mild pulmonary emphysema. * Mild interstitial disease without a zonal predominance. Also, lungs have mosaic attenuation, suggestive of air trapping phenomenon, as may be seen in the setting of inflammation of airways. Consider possibility of manifestations of hypersensitivity pneumonitis. * No centrilobular nodules, groundglass changes or consolidation to suggest acute pneumonitis * Atherosclerotic disease of thoracic aorta and coronary arteries. * The pulmonary artery trunk is mildly enlarged; this could be a manifestation of pulmonary arterial hypertension. Dictated By: Brett Mauricio MD Signed By: <Electronically signed by Brett Mauricio MD in OV> 12/23/23826 DD/ 3 TD/TT: Shipping Supervisor: PD Assessment & Plan Assessment & Plan (1) ILD (interstitial lung disease): Code(s): J84.9 - Interstitial pulmonary disease, unspecified Category: Medical (2) Environmental allergies: Code(s): Z91.09 - Other allergy status, other than to drugs and biological substances Category: Medical (3) Lung nodules: Code(s): R91.8 - Other nonspecific abnormal finding of lung field Category: Medical (4) Dyspnea: Code(s): R06.00 - Dyspnea, unspecified Category: Medical (5) CHF (congestive heart failure): Code(s): I50.9 - Heart failure, unspecified Category: Medical Qualifiers: Heart failure chronicity: chronic Heart failure type: systolic Q ualified Code(s): I50.22 - Chronic systolic (congestive) heart failure (6) Nocturnal hypoxemia: Code(s): G47.34 - Idiopathic sleep related nonobstructive alveolar hypoventilation Category: Medical Plan Reviewed chest CT with Marleni and daughter. Will send for hypersensitivity pneumonitis work up as well as lupus, given findings on chest CT. At this time patient will trial prednisone 40 mg x 1 month for ILD, repeat chest CT and reevaluate respiratory symptoms at that time. Reviewed adverse effects of prednisone. She is aware to call the office if these symptoms develop. We also reviewed home sleep study which revealed moderate CLARENCE, AHI 18, however significant nocturnal hypoxemia, lowest O2 72%, <88% 578 minutes. Recommendations made for in lab titration PSG. Reviewed these results which recommended BiPAP therapy with pressure of 17/12. Will send rx as well as send for overnight oximetry on BiPAP therapy, room air, given significant nocturnal hypoxemia. Will perform 6MWT at next visit. All questions were answered and patient is in agreement of plan. Will follow up to review results or sooner if needed. Orders: Orders 2 Hypersensitive Pneumonitis Prf 12/31/23 J84.9 - Interstitial pulmonary disease, unspecified, Z91.09 - Other allergy status, other than to drugs and biological substances Resp Allergy Profile Region I 12/31/23 Z91.09 - Other allergy status, other than to drugs and biological substances Complete Blood Count Auto Diff 12/31/23 Z91.09 - Other allergy status, other than to drugs and biological substances LAKESHA Reflex Titer and Pattern 12/31/23 J84.9 - Interstitial pulmonary disease, unspecified C Reactive Protein 12/31/23 J84.9 - Interstitial pulmonary disease, unspecified Other Ref Test - Misc 12/31/23 Z91.09 - Other allergy status, other than to drugs and biological substances Erythrocyte Sedimentation Rate 12/31/23 J84.9 - Interstitial pulmonary disease, unspecified Immunoglobulin E 12/31/23 Z91.09 - Other allergy status, other than to drugs and biological substances CT chest wo IV con 12/31/23 J84.9 - Interstitial pulmonary disease, unspecified Overnight Pulse Oximetry Today G47.34 - Idiopathic sleep related nonobstructive alveolar hypoventilation Medications: New 2 prednisone 40 mg (2 x 20 mg) PO DAILY 60 tabs 0RF J84.9 - Interstitial pulmonary disease, unspecified Coding Level of Care Code Est Pt Level 4 (27851) Diagnoses ILD (interstitial lung disease) J84.9 Environmental allergies Z91.09 Lung nodules R91.8 Dyspnea R06.00 Chronic systolic congestive heart failure I50.22 Heart failure chronicity: chronic Heart failure type: systolic Nocturnal hypoxemia G47.34
== END 2023-12-29 15:12 | disposition home or self-care (01) ==
PROVIDERS: PCP Nurse Practitioner Family; Visit Provider Nurse Practitioner Family
DX: J84.9 Interstitial pulmonary disease, unspecified (principal); Z91.09 Other allergy status, other than to drugs and biological substances; R91.8 Other nonspecific abnormal finding of lung field; R06.00 Dyspnea, unspecified; I50.22 Chronic systolic (congestive) heart failure; G47.34 Idiopathic sleep related nonobstructive alveolar hypoventilation
CPT/HCPCS: 99214

== ENCOUNTER → 2023-12-29 14:27 | Outpatient (BNVA) | payer MEDICARE, MEDICAID, SELFPAY | PROVIDERS: PCP Nurse Practitioner Family; Visit Provider Nurse Practitioner Family | DX: J84.9 Interstitial pulmonary disease, unspecified (principal); I50.22 Chronic systolic (congestive) heart failure; R91.8 Other nonspecific abnormal finding of lung field; R06.00 Dyspnea, unspecified; G47.34 Idiopathic sleep related nonobstructive alveolar hypoventilation; Z91.09 Other allergy status, other than to drugs and biological substances | CPT/HCPCS: 99212 ==

== ENCOUNTER 2024-01-11 11:13 | Outpatient (AMB) | payer MEDICARE, MEDICAID, SELFPAY ==
[2024-01-11 11:14] VITALS: BP 108/70; PULSE 69; BMI 25.6
--- NOTE | 2024-01-11 11:14 | MHC.OFFVIS ---
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 ] cholecalciferol (vitamin D3) 1,250 mcg PO QWEEK clopidogrel 75 mg PO DAILY digoxin 125 mcg PO DAILY furosemide 40 mg PO DAILY lisinopril 40 mg PO DAILY metoprolol tartrate 50 mg PO DAILY multivitamin (Daily Multi-Vitamin tablet) 1 tab PO DAILY omega-3 fatty acids 500 mg PO DAILY omeprazole 20 mg PO DAILY prednisone 40 mg (2 x 20 mg) PO DAILY rosuvastatin 10 mg PO DAILY HPI Comments Details: Patient is here for consultation regarding congestive heart failure as well as atrial fibrillation. It seems that she used to live in [place] and has moved here few months back. Unclear cardiac history. There is mention of congestive heart failure as well as atrial fibrillation. Unclear coronary status. In prior notes, mentioned that EF is in the 40s but again no further information. She apparently does get short of breath with activity. Some burning in the chest off and on but nothing in the last few months. Overall, information is minimal and very vague. It seems that she was admitted to [facility] few months back. At that time, thought to be uncontrolled atrial fibrillation as she had not had any medications after moving from [place]. Now she seems to be on a reasonable regimen. [facility] Medical History (Updated 01/11/24 @ 11:43 by Raj Moise MD) Persistent atrial fibrillation CAD (coronary artery disease), [place] coronary artery Amputated toe of right foot Family History Mother HTN (hypertension) Diabetes Cardiovascular disease Skin cancer Father Substance abuse Alcoholism Social History (Updated 01/11/24 @ 11:19 by Daria Birch CMA) Housing: Apartment Alcohol intake: never Patient Tobacco Use Status: Never used Tobacco e-Cigarette/Vaping Use: Never Used Second Hand Smoke Exposure: No service: No Current occupational status: retired Current occupational exposures/hazards: No Cognitive needs: Yes Hearing needs: Yes Vision needs: No Review of Systems Const Denies chills, Denies daytime sleepiness, Denies fatigue, Denies fever(s), Denies lethargy, Denies snoring, Denies stops breathing during sleep, Denies weight gain, Denies weight loss and Denies other Eyes Denies loss of vision Card Denies chest pain, Denies irregular heart rhythm, Denies claudication, Denies leg edema, Denies lightheadedness, Denies palpitations, Denies dyspnea, Denies dyspnea on exertion, Denies orthopnea and Reports other Resp Denies cough, Denies excessive phlegm production, Denies dyspnea, Denies dyspnea on exertion and Denies snoring GI Denies abdominal pain, Denies hematochezia, Denies change in bowel habits, Denies nausea and Denies vomiting Denies dysuria Musc Denies arthralgias, Denies muscle weakness and Denies numbness Skin/Breast Reports as per HPI, Denies nail changes and Denies rash Neuro Denies loss of vision, Denies memory loss and Denies numbness Psych Denies depression and Denies memory loss Endo Denies fatigue and Denies palpitations Benji/Lymph Denies easy bruising Physical Exam Vital Signs: Last Vital Signs Pulse 69 01/11/24 11:14 BP 108/70 01/11/24 11:14 BMI result Body Mass Index 25.6 Const General: comfortable and no acute distress Orientation/consciousness: patient oriented x3 HEENT Other: Unremarkable Head: Yes normal to inspection Neck Neck: Yes normal visual inspection Chest Chest palpation & inspection: normal inspection of the chest Resp Auscultation: clear to auscultation bilaterally Cardio Palpation: normal PMI Heart sounds: S1 normal heart sound present, S2 normal heart sound present, no gallops, no murmurs and no rubs GI Palpation (GI): Soft to palpation Back/Spine/Pelvis Other: unremarkable Skin General skin exam: no rashes or lesions noted Neuro General: patient oriented x3 Extrem General: Yes normal to inspection Psych Mental Status: mental status grossly normal Assessment & Plan Assessment & Plan (1) CHF (congestive heart failure): Code(s): I50.9 - Heart failure, unspecified Category: Medical Qualifiers: Heart failure chronicity: chronic Heart failure type: systolic Qualified Code(s): I50.22 - Chronic systolic (congestive) heart failure (2) Persistent atrial fibrillation: Code(s): I48.19 - Other persistent atrial fibrillation Category: Medical Plan EKG in August from [facility] shows atrial fibrillation rapid rate at 144/Min. Will plan comprehensive workup with an echocardiogram and Holter monitor for further evaluation. For meds, she is on metoprolol, digoxin, Eliquis with diuretics. No changes in that regard. Check digoxin levels. Otherwise, stable blood pressure. Follow-up after testing. Discussed with daughter. Orders: Orders CA echo transthoracic complete Today I50.22 - Chronic systolic (congestive) heart failure Digoxin Today I48.19 - Other persistent atrial fibrillation ECG 3 day holter monitor Today I48.19 - Other persistent atrial fibrillation Coding Level of Care Code New Pt Level 4 (92308) Diagnoses Chronic systolic congestive heart failure I50.22 Heart failure chronicity: chronic Heart failure type: systolic Persistent atrial fibrillation I48.19
== END 2024-01-11 11:50 | disposition home or self-care (01) ==
PROVIDERS: PCP Nurse Practitioner Family; Visit Provider Internal Medicine
DX: I50.22 Chronic systolic (congestive) heart failure (principal); I48.19 Other persistent atrial fibrillation
CPT/HCPCS: 99204

== ENCOUNTER → 2024-01-11 11:13 | Outpatient (BNVA) | payer MEDICARE, MEDICAID, SELFPAY | PROVIDERS: PCP Nurse Practitioner Family; Visit Provider Internal Medicine | DX: I50.22 Chronic systolic (congestive) heart failure (principal); I48.19 Other persistent atrial fibrillation; Z79.01 Long term (current) use of anticoagulants; Z79.899 Other long term (current) drug therapy | CPT/HCPCS: 99202 ==

== ENCOUNTER → 2024-01-24 14:03 | Outpatient (REF) | payer MEDICARE, MEDICAID, SELFPAY ==
--- NOTE | 2024-01-24 14:06 | HM_ITS ---
Conclusion: 1. Patient was monitored for total period of 2 days and 23 hours 2. Baseline was atrial fibrillation with average heart of 68 beats per minute overall good rate control 3. Multiple pauses noted greater than 3 seconds, longest is 3.33 seconds happening at 07:40 4. No patient reported events MTDD
--- NOTE | 2024-01-24 14:06 | CA_ITS ---
Transthoracic Echocardiogram Patient (Last, First, Middle): Marleni Beltrán, Gender: Female Date of : 1945 Age: 78 Procedure Date: 01/24/2024 Procedure Type: Transthoracic Echocardiogram Location: OP Height: 154.94 cm Weight: 64.41 kg BSA: 1.63 m2 Heart Rate: bpm BP: 120 / 75 mmHg Design Architect: TRESSA Referring MD: Raj Moise MD Symptoms: I50.22 - Chronic systolic (congestive) heart failure Study Quality: Fair ECG Rhythm: Atrial Fibrillation Conclusions: - The left ventricular systolic function is normal. The calculated ejection fraction is 63% by biplane method. - There is moderate mitral annular calcification. Findings Left Ventricle Normal left ventricular cavity size. The left ventricular systolic function is normal. The calculated ejection fraction is 63% by biplane method. There is no evidence of regional wall motion abnormalities. Diastolic function is indeterminate on the basis of available data. Right Ventricle Normal right ventricular cavity size. There is mildly decreased right ventricular systolic function. Atria The left atrium is moderately dilated. The right atrium is mildly dilated. Aortic Valve There is a normal trileaflet aortic valve. There is no aortic valve stenosis. There is no aortic valve regurgitation. Mitral Valve There is moderate mitral annular calcification. There is trace mitral valve regurgitation. There is no mitral valve stenosis. Pulmonic Valve The pulmonic valve is likely normal. There is trace pulmonic valve regurgitation. Tricuspid Valve There is mild tricuspid valve regurgitation. There is no evidence of pulmonary hypertension. Great Vessels The asc aorta is normal in size. Venous The inferior vena cava is normal in size and collapses greater than 50% with inspiration. Pericardium/Pleural There is no evidence of pericardial effusion. Prior Study Comparison No prior study available for comparison. Measurements 2D Linear Measurements LVOT Diam: 1.90 3.0+(-)1.3 cm 2D Systolic Function EF 4C: 66.60 >55% EF 2C: 60.00 >55% EF BiP: 63.00 >55% Mitral Valve MV Pk E: 1.35 MV Decel Time: 193.00 E'Lateral: 6.57 E'Medial: 6.14 E/E' Med: 22.00 E/E' Lat: 20.50 PHT: 56.00 MVA PHT: 3.93 Decel Williams: 7.10 Aortic Valve AoV Pk John: 1.17 AoV Mn John: 0.84 AoV VTI: 0.26 AoV Pk Grad: 5.00 Aov Mn Grad: 3.00 RAÚL Cont.VTI: 2.18 LVOT LVOT Pk John: 0.97 LVOT Mn John: 0.58 LVOT VTI: 0.20 LVOT Pk Grad: 4.00 LVOT Mn Grad: 2.00 LVOT Diam: 1.90 LVOT Area: 2.84 Diastolic Function MV Pk E: 1.35 E'Medial: 6.14 E/E' Med: 22.00 E' Laterial: 6.57 E/E' Lat: 20.50 Right Ventricle TAPSE (mm): 15.20 TVS' John: 10.40 Tricuspid Valve TR Pk John: 2.40 TR Pk Grad: 23.00 RA Press: 3.00 RVSP: 26.00 Great Vessels Aorta Sinus of Valsalva: 3.76 2.0-3.[address] [place]: 2.71 1.7-3.4 cm Ao Asc: 3.70 2.1-3.4 cm Updated in Other Vendor System with Status of Final Raj Moise MD electronically signed on 01/25/2024 11:33:32 AM with status of Final
== END ==
LOC: HO.CARD 14:03
PROVIDERS: PCP Nurse Practitioner Family; Visit Provider Internal Medicine
DX: I48.19 Other persistent atrial fibrillation (principal); I50.22 Chronic systolic (congestive) heart failure
CPT/HCPCS: 93242; 93306

== ENCOUNTER → 2024-01-24 14:06 | Outpatient (BNV) | payer MEDICARE, MEDICAID, SELFPAY | PROVIDERS: PCP Nurse Practitioner Family; Visit Provider Internal Medicine | DX: I50.22 Chronic systolic (congestive) heart failure (principal); I36.1 Nonrheumatic tricuspid (valve) insufficiency; I34.81 Nonrheumatic mitral (valve) annulus calcification | CPT/HCPCS: 93244; 93306 ==

== ENCOUNTER 2024-02-05 09:30 | Outpatient (REF) | payer MEDICARE, MEDICAID, SELFPAY ==
[2024-02-05 10:16] LABS: MANUAL DIFF FLAG NO
[2024-02-05 10:39] LABS: Basophils Percent Auto 0.3 % (0-2); Eosinophils Absolute Auto 0.1 X10*3/uL (0.0-0.4); Hematocrit 45.3 % (37.0-47.0); Hemoglobin 15.5 g/dl (12.0-16.0); Imm Gran Abs Auto 0.13 X10*3/uL (0.00-0.03); Imm Gran Pct Auto 1.3 % (0.0-0.4); Lymphocytes Absolute Auto 2.3 X10*3/uL (1.2-4.9); Lymphocytes Percent Auto 22.9 % (20-40); Mean Corpuscular HGB Conc 34.2 g/dl (31.0-35.0); Mean Corpuscular Hemoglobin 29.8 pg (27.0-33.0); Mean Corpuscular Volume 87.1 fL (80.0-98.0); Monocytes Absolute Auto 0.6 X10*3/uL (0.1-1.2); Monocytes Percent Auto 5.4 % (2-11); Neutrophils Percent Auto 69.1 % (45-73); Red Cell Distribution Width 13.9 % (11.0-16.0); White Blood Count 10.1 X10*3/uL (4.8-10.8)
[2024-02-05 10:46] LABS: Estimated Average Glucose 235 mg/dL; Hemoglobin A1c % 9.8 % (<6.0)
[2024-02-05 11:34] LABS: Erythrocyte Sedimentation Rate 7 MM/HR (0-20)
[2024-02-05 11:36] LABS: Alanine Aminotransferase 42 U/L (0-31); Albumin Level 3.9 g/dL (3.5-5.0); Alkaline Phosphatase 126 U/L (39-117); Anion Gap 16 (12-20); Aspartate Amino Transferase 17 U/L (5-31); Bilirubin Total 0.6 mg/dL (0.0-1.0); Blood Urea Nitrogen 23 mg/dL (9-16); C Reactive Protein 0.25 mg/dL (< or = 0.50); Calcium 9.6 mg/dL (8.4-10.2); Carbon Dioxide 25 mmol/L (22-29); Chloride 103 mmol/L (96-108); Cholesterol 193 mg/dL (<200); Estimated Glomerular Filt Rate 46; Glucose Fasting 240 mg/dL (60-99); HDL Cholesterol 42 mg/dL (>40); LDL Cholesterol Calculated 93 mg/dL (<100); Potassium 3.7 mmol/L (3.3-5.1); Sodium 140 mmol/L (135-145); Total Protein 7.2 g/dL (6.5-8.0); Triglycerides 293 mg/dL (<150)
[2024-02-10 11:04] LABS: ANA Titer 2 1:40 titer; Anti Nuclear Antibody Pattern Nuclear, Centromere; Anti Nuclear Antibody Screen POSITIVE (NEGATIVE)
[2024-02-10 13:08] LABS: Class Alternaria alternata 0; Class Aspergillus fumigatus 0; Class Bermuda Grass 0; Class Birch 0; Class Cat Dander 0; Class Cladosporium herbarum 0; Class Cockroach 0; Class Common Ragweed 0; Class Cottonwood 0; Class Derm. pterony 0; Class Dermatophagoides farinae 0; Class Dog Dander 0; Class Elm 0; Class Maple Box Elder 0; Class Mountain Cedar 0; Class Mouse Urine Protein 0; Class Mugwort 0; Class Oak 0; Class Penicillium crysogenum 0; Class Rough Pigweed 0; Class Sheep Sorrel 0; Class Sycamore 0; Class Timothy Grass 0; Class Walnut Tree 0; Class White Ash 0; Class White Mulberry 0; D001 IgE D pteronyssinus <0.10 kU/L; D002 - IgE D farinae <0.10 kU/L; E001 - IgE Cat Dander <0.10 kU/L; E005 - IgE Dog Dander <0.10 kU/L; E072-IgE Mouse Urine <0.10 kU/L; G002 IgE Bermuda Grass <0.10 kU/L; G006 - IgE Timothy Grass <0.10 kU/L; I006-IgE Cockroach, German <0.10 kU/L; Immunoglobulin E 81 kU/L (<OR=114); M001 IgE Penicillium chrysogen <0.10 kU/L; M002 - IgE Cladosporium herbar <0.10 kU/L; M003 - IgE Aspergillus fumigat <0.10 kU/L; M006 - IgE Alternaria alternat <0.10 kU/L; T001 IgE Maple/Box Elder <0.10 kU/L; T003 IgE Common Silver Birch <0.10 kU/L; T006 - IgE Cedar, Mountain <0.10 kU/L; T007 - IgE Oak, White <0.10 kU/L; T008 IgE Elm, American <0.10 kU/L; T010 - IgE Walnut <0.10 kU/L; T011 - IgE Maple Leaf Sycamore <0.10 kU/L; T014 - IgE Cottonwood <0.10 kU/L; T015 - IgE Ash, White <0.10 kU/L; T070 - IgE White Mulberry <0.10 kU/L; W001 - IgE Ragweed, Short <0.10 kU/L; W006 - IgE Mugwort <0.10 kU/L; W014 IgE Pigweed, Common <0.10 kU/L; W018 IgE Sheep Sorrel <0.10 kU/L
[2024-02-12 14:03] LABS: Asperg fumigatus Precip Abs NEGATIVE (NEGATIVE); Micropoly faeni Abs NEGATIVE (NEGATIVE); Pigeon serum Abs NEGATIVE (NEGATIVE); Saccharo pora viridis Abs NEGATIVE (NEGATIVE); Thermo candidus Abs NEGATIVE (NEGATIVE); Thermoa vulgaris #1 NEGATIVE (NEGATIVE)
== END 2024-02-05 09:31 | disposition home or self-care (01) ==
LOC: HO.LAB 09:30
PROVIDERS: PCP Nurse Practitioner Family; Visit Provider Nurse Practitioner Family
DX: Z91.09 Other allergy status, other than to drugs and biological substances (principal); J84.9 Interstitial pulmonary disease, unspecified; E26.1 Secondary hyperaldosteronism; N25.81 Secondary hyperparathyroidism of renal origin; N18.31 Chronic kidney disease, stage 3a; E78.2 Mixed hyperlipidemia; I50.22 Chronic systolic (congestive) heart failure; E11.8 Type 2 diabetes mellitus with unspecified complications
CPT/HCPCS: 36415; 80053; 80061; 80162; 82785; 83036; 85025; 85652; 86003; 86038; 86039; 86140; 86331; 86606; 86609

== ENCOUNTER 2024-02-07 16:48 | Outpatient (REF) | payer MEDICARE, MEDICAID, SELFPAY ==
--- NOTE | ~2024-02-07 | CT_ITS ---
EXAMINATION: CT CHEST WITHOUT CONTRAST CLINICAL INFORMATION: Interstitial lung disease COMPARISON: 12/08/2023 TECHNIQUE: Multidetector volumetric CT imaging of the chest was done. Axial MIP volume rendering provided. Sagittal and coronal reformatted images were obtained. This CT examination was performed using dose optimization techniques as appropriate, variously including the following: *Automated exposure control *Adjustment of mA and/or kV according to patient size (this includes techniques or standardized protocols for targeted exams where dose is matched to indication/reason for exam; i.e. extremities or head) *Use of iterative reconstruction technique DLP: 232 mGy-cm FINDINGS: BUNCH BREAKER: Prominent cardiac silhouette. Aortic calcifications. Mild increased interstitial markings. LUNGS: Trachea and bronchi are patent. Bronchial wall thickening. Evaluation of the lung parenchyma limited due to respiratory motion. Thin-walled cyst in the right upper lobe. Mosaic attenuation to the pulmonary parenchyma. Likely underlying centrilobular emphysema. Scattered subpleural reticular markings and atelectasis. Left lower lobe granuloma. No suspicious pulmonary nodules MEDIASTINUM: Unchanged left thyroid hypodensity. Nonspecific prominent mediastinal lymph nodes. Enlarged pulmonary arteries consistent with pulmonary arterial hypertension. Enlarged heart. Degree of coronary calcifications: Moderate. No pericardial effusion. PLEURA: There is no pleural effusion. No pleural mass or thickening. AXILLA: No lymphadenopathy. UPPER ABDOMEN: Unremarkable. OSSEOUS STRUCTURES: No suspicious osseous lesions. CT/CT chest wo IV con IMPRESSION: Study limited by respiratory motion. Redemonstration pulmonary mosaic attenuation, likely underlying centrilobular emphysema, increased reticular markings and bibasilar atelectasis. Cardiomegaly. Pulmonary arterial hypertension.
== END 2024-02-07 16:49 | disposition home or self-care (01) ==
LOC: HO.CT 16:48
PROVIDERS: Visit Provider Nurse Practitioner Family
DX: J84.9 Interstitial pulmonary disease, unspecified (principal)
CPT/HCPCS: 71250

== ENCOUNTER 2024-02-08 | Outpatient (REF) | payer MEDICARE, MEDICAID, SELFPAY ==
[2024-02-08 16:14] LABS: Digoxin 0.5 ng/mL (0.8-2.0)
[2024-02-14 14:40] LABS: Immunoglobulin E 70
== END 2024-02-08 00:01 | disposition home or self-care (01) ==
LOC: HO.LAB
PROVIDERS: Nurse Practitioner Family; Visit Provider Internal Medicine
DX: I48.19 Other persistent atrial fibrillation (principal); Z91.09 Other allergy status, other than to drugs and biological substances
CPT/HCPCS: 36415; 80162; 82785

== ENCOUNTER 2024-02-16 08:22 | Outpatient (AMB) | payer MEDICARE, MEDICAID, SELFPAY ==
[2024-02-16 08:25] VITALS: BP 138/86; PULSE 92; O2SAT 95; BMI 24.9
--- NOTE | 2024-02-16 08:25 | A.OFFVIS_ITS ---
Vital Signs 02/16/24 08:25 Height 5 ft 1 in Weight 132 lb BMI 24.9 BP 138/86 Blood Pressure Location Lt brachial Position Sitting Pulse 92 Pulse Source Pulse Oximeter Pulse Oximetry (%) 95 Oxygen Delivery Method Room Air Intake Visit Reasons: BiPAP machine FU Allergies pineapple Allergy (Mild, Uncoded 02/16/24 08:30) rash HPI HPI BiPAP machine FU: Details: Marleni is a pleasant 78 year old female, never smoker, with underlying asthma, pulmonary nodules, interstitial lung disease, CAD, atrial fibrillation maintained on on eliquis, DMII, CHF on lasix 40 mg, CKDIII and GERD. There was question of ILD and patient trialed on prednisone. Unfortunately, she denies any symptomatic changes and presents to review chest CT. She also presents to review compliance with BiPAP as well as prior labs that were ordered. Of note, she had recent echo which did not suggest pulmonary HTN RVSP 26 and has follow up with cardiology next month. She continues to report dyspnea on minimal exertion. Denies any cough, wheezing or chest tightness. Denies any palpitations or chest pain. PFT ordered however not scheduled yet, will send order to [facility] per patient request. [facility] Medical History (Updated 02/22/24 @ 16:08 by Aye Wiseman NP) Persistent atrial fibrillation CAD (coronary artery disease), tetlin coronary artery Amputated toe of right foot Family History Mother HTN (hypertension) Diabetes Cardiovascular disease Skin cancer Father Substance abuse Alcoholism Social History Housing: Apartment Alcohol intake: never Patient Tobacco Use Status: Never used Tobacco e-Cigarette/Vaping Use: Never Used Second Hand Smoke Exposure: No service: No Current occupational status: retired Current occupational exposures/hazards: No Cognitive needs: Yes Hearing needs: Yes Vision needs: No Review of Systems Const Denies chills, Denies excessive sweating, Denies fever(s), Denies headache(s) and Denies night sweats Eyes Denies dry eyes, Denies irritation and Denies itchy eyes ENT Reports Normal hearing present, Denies headache(s), Denies nasal congestion, Denies nasal discharge, Denies post nasal drip and Denies sore throat Card Denies chest pain, Denies chest pain at rest, Denies chest pain with activity, Denies claudication, Denies leg edema, Denies orthopnea and Denies paroxysmal nocturnal dyspnea Resp Denies chest congestion, Denies excessive phlegm production, Denies pain on inspiration, Denies pain with cough and Denies stridor Musc Denies myalgias Neuro Reports Normal hearing present and Denies headache(s) Endo Denies excessive sweating Benji/Lymph Denies lymphadenopathy Aller/Immun Denies itchy eyes and Denies seasonal rhinorrhea Physical Exam Vital Signs: Last Vital Signs Pulse 92 02/16/24 08:25 BP 138/86 02/16/24 08:25 Pulse Ox 95 02/16/24 08:25 Oxygen Delivery Method Room Air 02/16/24 08:25 BMI result Body Mass Index 24.9 Const General: cooperative, healthy appearing, comfortable, no acute distress, well developed and alert Orientation/consciousness: patient oriented x3 Limitations: ambulation with cane HEENT Head: Yes normal to inspection, Yes normocephalic and Yes atraumatic Ears: hearing grossly normal bilaterally and external ears normal Eyes General: appearance normal, both eyes and all related structures Eyelids: Yes eyelids normal Sclerae: sclerae normal EOM: EOMs intact bilaterally Neck Neck: Yes normal visual inspection and Yes no lymphadenopathy Lymphatic: no lymphadenopathy noted Chest Chest palpation & inspection: normal inspection of the chest Resp Other: faint bibasilar inspiratory crackles Effort & Inspection: normal respiratory effort, able to speak in complete sentences, no audible wheezes, no cough, no stridor, not tachypneic, no tripod positioning and no use of accessory muscles Cardio Jugular venous distension: no JVD Rate: regular rate Rhythm: abnormal rhythm (afib) Skin Other: warm, dry General skin exam: no rashes or lesions noted Neuro General: patient oriented x3 Cranial nerves: Yes Normal hearing present Cognition (Neuro): normal cognition Gait exam (Neuro): Normal gait present Extrem General: Yes normal to inspection, Yes capillary refill normal, Yes no clubbing, cyanosis or edema and Yes no pedal edema Psych Appearance: grossly normal and well kempt Speech and movement: Normal speech and movement present and Clear speech present Affect: normal affect Attitude: cooperative Thought process: Normal thought process present Thought content: Normal thought content present Insight: Good insight present (Psych) Judgement: Good judgement present (Psych) Assessment & Plan Assessment & Plan (1) ILD (interstitial lung disease): Code(s): J84.9 - Interstitial pulmonary disease, unspecified Category: Medical (2) Environmental allergies: Code(s): Z91.09 - Other allergy status, other than to drugs and biological substances Category: Medical (3) Lung nodules: Code(s): R91.8 - Other nonspecific abnormal finding of lung field Category: Medical (4) Dyspnea: Code(s): R06.00 - Dyspnea, unspecified Category: Medical (5) CHF (congestive heart failure): Code(s): I50.9 - Heart failure, unspecified Category: Medical Qualifiers: Heart failure chronicity: chronic Heart failure type: systolic Qualified Code(s): I50.22 - Chronic systolic (congestive) heart failure (6) Nocturnal hypoxemia: Code(s): G47.34 - Idiopathic sleep related nonobstructive alveolar hypoventilation Category: Medical (7) LAKESHA positive: Code(s): R76.8 - Other specified abnormal immunological findings in serum Category: Medical Plan Reviewed chest CT which revealed mild increase in interstitial markings with minimal change in dyspnea with prednisone. Will taper prednisone at this time since no radiologic or symptomatic improvements. Recent echo not suggestive of pulmonary HTN although CT noted enlarged pulmonary arteries. Will have follow up with cardiology. Attempted 6MWT however after approximately 100 yards patient HR increased to 148, lowest O2 95%. Recovered to HR 90 and 02 98% on RA. At this time it is difficult to assess requirements of supplemental oxygen, however she does need 4L with BiPAP. Will send order for O2 adapter to [facility]. Once using frequently will send for overnight oximetry to assess for resolution of nocturnal hypoxemia. Reviewed compliance report and patient has had difficulties using initially. It was noted on the compliance report, frequent leaking which she attributes to the nasal mask. Advised to reach out to [facility] to trial another mask. Reviewed labs which were consistent with underlying connective tissue disorder with positive LAKESHA. Daughter with RA. Requesting referral the rheumatology to be sent to the [facility] in [place]. Will follow up in 6 weeks or sooner if needed. All questions were answered and patient is in agreement of plan. Will follow up to review results or sooner if needed. Orders: Orders PFT pulmonary function test Today R06.00 - Dyspnea, unspecified Referrals Rheumatology Referral R76.8 - Other specified abnormal immunological findings in serum Medications: New prednisone see taper instructions Take 3 pills daily for 7 days, 2 pills daily for 7 days, 1 pill daily x 7 days and 1/2 pill daily for 7 days. 46 tablets 28 days 10 mg PO DIRECTED 46 tabs 0RF Discontinued prednisone Discontinued Reason: Patient Completed Course 40 mg (2 x 20 mg) PO DAILY 60 tabs 0RF J84.9 - Interstitial pulmonary disease, unspecified Coding Level of Care Code Est Pt Level 5 (26066) Diagnoses ILD (interstitial lung disease) J84.9 Environmental allergies Z91.09 Lung nodules R91.8 Dyspnea R06.00 Chronic systolic congestive heart failure I50.22 Heart failure chronicity: chronic Heart failure type: systolic Nocturnal hypoxemia G47.34 LAKESHA positive R76.8
== END 2024-02-16 09:25 | disposition home or self-care (01) ==
PROVIDERS: PCP Nurse Practitioner Family; Visit Provider Nurse Practitioner Family
DX: J84.9 Interstitial pulmonary disease, unspecified (principal); Z91.09 Other allergy status, other than to drugs and biological substances; R91.8 Other nonspecific abnormal finding of lung field; R06.00 Dyspnea, unspecified; I50.22 Chronic systolic (congestive) heart failure; G47.34 Idiopathic sleep related nonobstructive alveolar hypoventilation; R76.8 Other specified abnormal immunological findings in serum
CPT/HCPCS: 99215

== ENCOUNTER → 2024-02-16 08:22 | Outpatient (BNVA) | payer MEDICARE, MEDICAID, SELFPAY | PROVIDERS: PCP Nurse Practitioner Family; Visit Provider Nurse Practitioner Family | DX: J45.909 Unspecified asthma, uncomplicated (principal); J84.9 Interstitial pulmonary disease, unspecified; R06.00 Dyspnea, unspecified; I50.22 Chronic systolic (congestive) heart failure; G47.34 Idiopathic sleep related nonobstructive alveolar hypoventilation; R76.8 Other specified abnormal immunological findings in serum; R91.8 Other nonspecific abnormal finding of lung field; Z91.09 Other allergy status, other than to drugs and biological substances | CPT/HCPCS: 99212 ==

== ENCOUNTER 2024-02-27 13:38 | Inpatient (IN) | payer MEDICARE, MEDICAID, SELFPAY ==
--- NOTE | ~2024-02-27 | XR_ITS ---
EXAMINATION: XR CHEST CLINICAL INFORMATION: Shortness of breath. Rule out pneumonia. COMPARISON: CT chest February 07, 2024 TECHNIQUE: Frontal view of the chest was obtained. FINDINGS: No significant abnormality is noted involving the heart, lungs, mediastinum, bony thorax or soft tissues. XR/XR chest 1V IMPRESSION: Unremarkable examination. Electronically signed by: Bridger Mills MD 02/27/2024 06:26 PM EDT RP
--- NOTE | 2024-02-27 13:45 | ED.GENADULT ---
HPI - General Adult General Chief complaint: General Medical Stated complaint: Low oxygen/weakness Time Seen by Provider: 02/27/24 17:12 Source: patient and family (Daughter, Tracey) Mode of arrival: ambulatory Limitations: language barrier (Patient is French-speaking only, mule spinner used) History of Present Illness ED Provider: Dr. 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 The patient and fever but did have chills. She has had a cough which is chronic. She denied chest pain, nausea, vomiting, diarrhea, dark stools or bloody stools she denied dysuria but has had urinary frequency. The daughter states that the patient is not on any medications for her diabetes. Daughter states that the patient has a long history of depression in her depression is gotten worse. Patient does wear oxygen at night and during the day for interstitial lung disease but does not wear oxygen sometimes her oxygen level drops with exertion according to the daughter. Daughter also states the patient has been having difficulty with her memory but has not been diagnosed with dementia Related Data Home Medications ?Medication ?Instructions ?Recorded ?Confirmed multivitamin (Daily Multi-Vitamin 1 tab PO DAILY 10/27/23 tablet) omega-3 fatty acids 500 mg capsule 500 mg PO DAILY 10/27/23 01/11/24 Previous Rx's ?Medication ?Instructions ?Recorded cholecalciferol (vitamin D3) 1,250 1,250 mcg PO QWEEK #12 caps 10/22/23 mcg (50,000 unit) capsule BIPAP #1 ea 12/27/23 amlodipine 10 mg tablet 10 mg PO DAILY #90 tabs 01/31/24 apixaban 5 mg tablet (Eliquis) 5 mg PO BID #180 tabs 01/31/24 clopidogrel 75 mg tablet 75 mg PO DAILY #90 tabs 01/31/24 digoxin 125 mcg (0.125 mg) tablet 125 mcg PO DAILY #90 tabs 01/31/24 furosemide 40 mg tablet 40 mg PO DAILY #90 tabs 01/31/24 lisinopril 40 mg tablet 40 mg PO DAILY #90 tabs 01/31/24 metoprolol tartrate 50 mg tablet 50 mg PO DAILY #90 tabs 01/31/24 omeprazole 20 mg capsule,delayed 20 mg PO DAILY #90 caps 01/31/24 release rosuvastatin 10 mg tablet 10 mg PO DAILY #90 tabs 01/31/24 prednisone 10 mg tablet 10 mg PO DIRECTED #46 tabs 02/22/24 Allergies Allergy/AdvReac Type Severity Reaction Status Date / Time pineapple Allergy Mild rash Uncoded 02/27/24 13:51 Review of Systems Review of Systems: Yes all other systems are reviewed and are negative [facility] Past Medical History [facility] Narrative: Social history: She lives at home with her daughter. She denies tobacco, alcohol and drug use Medical History (Updated 02/27/24 @ 21:22 by Demetrio Chappell MD) Persistent atrial fibrillation CAD (coronary artery disease), [place] coronary artery Amputated toe of right foot Family History Family History Mother HTN (hypertension) Diabetes Cardiovascular disease Skin cancer Father Substance abuse Alcoholism Social History Social History Housing: Apartment Alcohol intake: never Patient Tobacco Use Status: Never used Tobacco Smoked in Last 30 Days: No e-Cigarette/Vaping Use: Never Used Second Hand Smoke Exposure: No Use of substances other than those prescribed or required for medical reasons: No Advance Directives: No Advance Directives Information Provided: Yes Do you have a plan to hurt others: No Plan service: No Current occupational status: retired Current occupational exposures/hazards: No Cognitive needs: Yes Hearing needs: Yes Vision needs: No Physical Exam ED Vital Signs: Vital Signs - 24 hr 02/27/24 13:46 02/27/24 18:18 02/27/24 20:13 Temperature 97.3 F 97.7 F 98.0 F Pulse Rate 99 98 96 Respiratory Rate 26 H 16 18 Blood Pressure 131/76 126/80 113/83 Pulse Oximetry 100 97 96 Oxygen Delivery Method Room Air Room Air Room Air BMI result Body Mass Index 25.7 Vital signs revealed an elevated blood pressure of 131/76 elevated respiratory of 26 otherwise unremarkable. O2 saturation was 100% on room air Exam: General: Awake, alert in no distress Head: Normocephalic, atraumatic EENT: PERRL, Lids normal, sclera normal, conjunctiva normal, nose normal , ears normal, throat without erythema or exudates Neck: Supple, no adenopathy Lung: breath sounds symmetric, no wheezing, rales or rhonchi Chest: symmetric movement, nontender Heart: regular rate and rhythm, normal S1, S2 no murmurs or rubs Abdomen: soft, non-tender, nondistended, normal bowel sounds Back: no vertebral tenderness, no CVAT Extremities: no deformities, moves all extremities symmetrically Neuro: Awake, alert, oriented, normal speech, cranial nerves intact, moves all extremities symmetrically Psych: Pleasant, cooperative Course Course Course Narrative: This is a rapid medical exam performed by Jennifer Lara NP: Additional HPI, ROS, PE not included below will be deferred to primary provider. Patient is a 78-year-old French speaking female with history of CAD, persistent afib on eliquis, CLARENCE, CKD, CHF, T2DM, ILD presenting with complaint of weakness, chills. 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 Oxygen 100% in triage. Reports that after urinating she wiped and noted blood on the paper. Plan: EKG, labs, viral swabs, UA Medications Administered Discontinued Medications Generic Name Dose Route Start Last Admin Trade Name Freq PRN Reason Stop Dose Admin Lactated Ringer's 1,000 mls @ 999 mls/hr 02/27/24 17:32 02/27/24 20:15 Lr IV 02/27/24 18:32 Infused .Q1H1M STA Infusion Insulin Human Regular 5 unit 02/27/24 17:32 02/27/24 18:07 Insulin Regular, Human 100 Unit/Ml 10 Ml Vial IVPUSH 02/27/24 17:33 5 unit ONCE ONE Administration Medical Decision Making Medical Decision Making MDM Narrative: 78-year-old, French speaking female with arthrosclerosis of [place] arteries of bilateral lower extremities with pain and right leg with rest, gastroparesis, cardiomyopathy, AFib, right foot osteomyelitis, 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 Patient's vital signs were normal. Physical examination was unremarkable 17:46 Differential diagnosis: ?Includes but is not limited to myocardial infarction, myocardial ischemia, pneumonia, urinary tract infection, electrolyte abnormalities, anemia Following evaluation was ordered: CBC, CMP, lactic acid, BNP, PT/INR, troponin, beta hydroxy butyrate, urinalysis, VBG Course: 21:12 My independent interpretation patient's laboratory evaluation is as follows: WBCs elevated 11,000 with 60 neutrophils, H&H was normal. Platelet count was low 114,000. Venous blood gas was normal at 7.44 with a normal pCO2 of 36 and a normal bicarb of 25. Patient's BUN was elevated 24 with a normal creatinine of 1.40. Glucose was elevated 562. Troponin was elevated at 26.8 but repeat troponins were unchanged. BNP was elevated 262. 2.11-this is most likely secondary to starvation ketosis and not diabetic ketoacidosis. Lactic acid was elevated at 4.7 and repeat was 2.9-this is elevated secondary to starvation ketosis and not infection. Urinalysis revealed a concentrated urine positive glucose. Microscopic revealed no RBCs, no WBCs and no bacteria-no evidence for urinary tract infection. COVID-19, influenza, and RSV were negative. Chest x-ray was unremarkable Patient was treated with lactated Ringer's 1 L IV, regular insulin 5 units IV with some improvement of her glucose to 337. I ordered a 2 L of lactated Ringer's at 125 cc/hour. The patient was not currently on medications for diabetes therefore she will need to be admitted to stabilize her glucose and determine further management. Admission/Observation Consideration of admission/observation: Escalation of care including admission/observation considered Lab Data MDM Lab Attestation statement: I reviewed the patient's lab results. 02/27/24 14:16 02/27/24 14:16 Labs: Lab Results 02/27/24 02/27/24 02/27/24 Range/Units 14:16 17:15 17:31 WBC 11.0 H (4.8-10.8) X10*3/uL RBC 5.25 (4.20-5.50) X10*6/uL Hgb 15.7 (12.0-16.0) g/dl Hct 45.7 (37.0-47.0) % MCV 87.0 (80.0-98.0) fL MCH 29.9 (27.0-33.0) pg MCHC 34.4 (31.0-35.0) g/dl RDW 14.8 (11.0-16.0) % Plt Count 114 L (160-400) X10*3/uL MPV 12.0 (9.4-12.3) fL Immature Gran % (Auto) 1.3 H (0.0-0.4) % Neut % (Auto) 86.5 H (45-73) % Lymph % (Auto) 6.7 L (20-40) % [place] % (Auto) 5.0 (2-11) % Eos % (Auto) 0.2 (0-4) % Baso % (Auto) 0.3 (0-2) % Lymph # (Auto) 0.7 L (1.2-4.9) X10*3/uL [place] # (Auto) 0.6 (0.1-1.2) X10*3/uL Eos # (Auto) 0.0 (0.0-0.4) X10*3/uL Baso # (Auto) 0.0 (0.0-0.2) X10*3/uL Abs Immat Gran (auto) 0.14 H (0.00-0.03) X10*3/uL Absolute Neuts (auto) 9.6 H (2.0-8.3) x10*3/uL Absolute Nucleated RBC 0.000 (0.0-0.012) X10*3/uL Nucleated RBC % (auto) 0.0 (0.0-0.2) /100WBC PT 12.2 (11.1-13.3) SEC INR 1.0 (0.9-1.1) VBG pH (7.32-7.43) VBG pCO2 mmHg VBG pO2 mmHg VBG HCO3 (22-26) mmol/L VBG O2 Saturation % VBG Base Excess mmol/L Sodium 136 (135-145) mmol/L Potassium 4.7 D (3.3-5.1) mmol/L Chloride 99 (96-108) mmol/L Carbon Dioxide 22 (22-29) mmol/L Anion Gap 20 (12-20) BUN 24 H (9-16) mg/dL Creatinine 1.40 (0.5-1.4) mg/dL Estim Creat Clear Calc 27.5 Estimated GFR 37 POC Glucose 431 H* (60-115) mg/dL Random Glucose 562 H* (60-115) mg/dL Lactic Acid (0.5-2.0) mmol/L Lactic Acid F/U @ 2Hr (0.5-2.0) mmol/L Calcium 9.1 (8.4-10.2) mg/dL Total Bilirubin 1.1 H (0.0-1.0) mg/dL AST 15 (5-31) U/L ALT 29 (0-31) U/L Alkaline Phosphatase 103 (39-117) U/L Troponin I High Sens 26.8 H 25.1 H (<3.5-17.0) ng/L B-Natriuretic Peptide 262 H (<100) pg/mL Total Protein 6.5 (6.5-8.0) g/dL Albumin 3.6 (3.5-5.0) g/dL Beta-Hydroxybutyrate 2.11 H (0.02-0.27) mmol/L Urine Color Urine Appearance Urine pH (5.0-9.0) Ur Specific [place] (1.005-1.025) Urine Protein (Neg-Trace) mg/dL Urine Glucose (UA) (Negative) mg/dL Urine Ketones (Negative) mg/dL Urine Blood (Negative) Urine Nitrite (Negative) Ur Leukocyte Esterase (Negative) Influenza Type A (PCR) NEGATIVE (Negative) Influenza Type B (PCR) NEGATIVE (Negative) RSV RNA Qual (PCR) NEGATIVE (Negative) SARS-CoV-2 RNA (RT-PCR) NEGATIVE (Negative) 02/27/24 02/27/24 02/27/24 Range/Units 17:54 18:02 19:08 WBC (4.8-10.8) X10*3/uL RBC (4.20-5.50) X10*6/uL Hgb (12.0-16.0) g/dl Hct (37.0-47.0) % MCV (80.0-98.0) fL MCH (27.0-33.0) pg MCHC (31.0-35.0) g/dl RDW (11.0-16.0) % Plt Count (160-400) X10*3/uL MPV (9.4-12.3) fL Immature Gran % (Auto) (0.0-0.4) % Neut % (Auto) (45-73) % Lymph % (Auto) (20-40) % [place] % (Auto) (2-11) % Eos % (Auto) (0-4) % Baso % (Auto) (0-2) % Lymph # (Auto) (1.2-4.9) X10*3/uL [place] # (Auto) (0.1-1.2) X10*3/uL Eos # (Auto) (0.0-0.4) X10*3/uL Baso # (Auto) (0.0-0.2) X10*3/uL Abs Immat Gran (auto) (0.00-0.03) X10*3/uL Absolute Neuts (auto) (2.0-8.3) x10*3/uL Absolute Nucleated RBC (0.0-0.012) X10*3/uL Nucleated RBC % (auto) (0.0-0.2) /100WBC PT (11.1-13.3) SEC INR (0.9-1.1) VBG pH 7.44 H (7.32-7.43) VBG pCO2 36 mmHg VBG pO2 15 mmHg VBG HCO3 25 (22-26) mmol/L VBG O2 Saturation 63.0 % VBG Base Excess 1.5 mmol/L Sodium (135-145) mmol/L Potassium (3.3-5.1) mmol/L Chloride (96-108) mmol/L Carbon Dioxide (22-29) mmol/L Anion Gap (12-20) BUN (9-16) mg/dL Creatinine (0.5-1.4) mg/dL Estim Creat Clear Calc Estimated GFR POC Glucose 337 H (60-115) mg/dL Random Glucose (60-115) mg/dL Lactic Acid 4.7 H* (0.5-2.0) mmol/L Lactic Acid F/U @ 2Hr (0.5-2.0) mmol/L Calcium (8.4-10.2) mg/dL Total Bilirubin (0.0-1.0) mg/dL AST (5-31) U/L ALT (0-31) U/L Alkaline Phosphatase (39-117) U/L Troponin I High Sens 31.1 H (<3.5-17.0) ng/L B-Natriuretic Peptide (<100) pg/mL Total Protein (6.5-8.0) g/dL Albumin (3.5-5.0) g/dL Beta-Hydroxybutyrate (0.02-0.27) mmol/L Urine Color Urine Appearance Urine pH (5.0-9.0) Ur Specific [place] (1.005-1.025) Urine Protein (Neg-Trace) mg/dL Urine Glucose (UA) (Negative) mg/dL Urine Ketones (Negative) mg/dL Urine Blood (Negative) Urine Nitrite (Negative) Ur Leukocyte Esterase (Negative) Influenza Type A (PCR) (Negative) Influenza Type B (PCR) (Negative) RSV RNA Qual (PCR) (Negative) SARS-CoV-2 RNA (RT-PCR) (Negative) 02/27/24 02/27/24 Range/Units 20:18 20:26 WBC (4.8-10.8) X10*3/uL RBC (4.20-5.50) X10*6/uL Hgb (12.0-16.0) g/dl Hct (37.0-47.0) % MCV (80.0-98.0) fL MCH (27.0-33.0) pg MCHC (31.0-35.0) g/dl RDW (11.0-16.0) % Plt Count (160-400) X10*3/uL MPV (9.4-12.3) fL Immature Gran % (Auto) (0.0-0.4) % Neut % (Auto) (45-73) % Lymph % (Auto) (20-40) % [place] % (Auto) (2-11) % Eos % (Auto) (0-4) % Baso % (Auto) (0-2) % Lymph # (Auto) (1.2-4.9) X10*3/uL [place] # (Auto) (0.1-1.2) X10*3/uL Eos # (Auto) (0.0-0.4) X10*3/uL Baso # (Auto) (0.0-0.2) X10*3/uL Abs Immat Gran (auto) (0.00-0.03) X10*3/uL Absolute Neuts (auto) (2.0-8.3) x10*3/uL Absolute Nucleated RBC (0.0-0.012) X10*3/uL Nucleated RBC % (auto) (0.0-0.2) /100WBC PT (11.1-13.3) SEC INR (0.9-1.1) VBG pH (7.32-7.43) VBG pCO2 mmHg VBG pO2 mmHg VBG HCO3 (22-26) mmol/L VBG O2 Saturation % VBG Base Excess mmol/L Sodium (135-145) mmol/L Potassium (3.3-5.1) mmol/L Chloride (96-108) mmol/L Carbon Dioxide (22-29) mmol/L Anion Gap (12-20) BUN (9-16) mg/dL Creatinine (0.5-1.4) mg/dL Estim Creat Clear Calc Estimated GFR POC Glucose (60-115) mg/dL Random Glucose (60-115) mg/dL Lactic Acid (0.5-2.0) mmol/L Lactic Acid F/U @ 2Hr 2.9 H* (0.5-2.0) mmol/L Calcium (8.4-10.2) mg/dL Total Bilirubin (0.0-1.0) mg/dL AST (5-31) U/L ALT (0-31) U/L Alkaline Phosphatase (39-117) U/L Troponin I High Sens (<3.5-17.0) ng/L B-Natriuretic Peptide (<100) pg/mL Total Protein (6.5-8.0) g/dL Albumin (3.5-5.0) g/dL Beta-Hydroxybutyrate (0.02-0.27) mmol/L Urine Color Yellow Urine Appearance Clear Urine pH 5.5 (5.0-9.0) Ur Specific [place] >= 1.030 H (1.005-1.025) Urine Protein Negative (Neg-Trace) mg/dL Urine Glucose (UA) >=1000 H (Negative) mg/dL Urine Ketones 15 (Negative) mg/dL Urine Blood Negative (Negative) Urine Nitrite Negative (Negative) Ur Leukocyte Esterase Negative (Negative) Influenza Type A (PCR) (Negative) Influenza Type B (PCR) (Negative) RSV RNA Qual (PCR) (Negative) SARS-CoV-2 RNA (RT-PCR) (Negative) Independent Interpretation I performed an independent interpretation of an: EKG and Plain X-Ray Interpretation: My interpretation patient's 12 EKG at 14:02 hours is as follows: Atrial fibrillation with a rate of 96, normal QRS duration and QTC interval, no ST segment elevation, no ST segment depression, nonspecific T-wave abnormalities My interpretation is as follows: No acute disease Radiology Impression Discussion of test interpretation with radiology: I have reviewed the radiologist's reading. Radiologist Impression: XR chest 1V IMPRESSION: Unremarkable examination. Dictated By: Bridger Mills MD Discharge Plan Discharge Patient Disposition: Admitted As Inpatient Prescriptions: No Action (DME) BIPAP See Rx Instructions .Route .MEDSUPPLY Qty: 1 12RF Rx Instructions: Bipap 17 device with medium airfit F20 mask, use QHS. amlodipine 10 mg tablet 10 mg PO DAILY Qty: 90 1RF lisinopril 40 mg tablet 40 mg PO DAILY Qty: 90 0RF omeprazole 20 mg capsule,delayed release(DR/EC) 20 mg PO DAILY Qty: 90 1RF rosuvastatin 10 mg tablet 10 mg PO DAILY Qty: 90 1RF Eliquis 5 mg tablet 5 mg PO BID Qty: 180 0RF clopidogrel 75 mg tablet 75 mg PO DAILY Qty: 90 0RF digoxin 125 mcg (0.125 mg) tablet 125 mcg PO DAILY Qty: 90 0RF furosemide 40 mg tablet 40 mg PO DAILY Qty: 90 0RF metoprolol tartrate 50 mg tablet 50 mg PO DAILY Qty: 90 0RF cholecalciferol (vitamin D3) 1,250 mcg (50,000 unit) capsule 1,250 mcg PO QWEEK Qty: 12 0RF omega-3 fatty acids 500 mg capsule 500 mg PO DAILY multivitamin [Daily Multi-Vitamin] Tablet 1 tab PO DAILY prednisone 10 mg tablet 10 mg PO DIRECTED Qty: 46 0RF Rx Instructions: see taper instructions Take 3 pills daily for 7 days, 2 pills daily for 7 days, 1 pill daily x 7 days and 1/2 pill daily for 7 days. 46 tablets 28 days Print Language: Iraqi
[2024-02-27 13:46] VITALS: BP 131/76; PULSE 99; RESP 26; TEMP 36.3; O2SAT 100; BMI 25.7
--- NOTE | 2024-02-27 13:50 | ECG_ITS ---
Test Reason : WEAKNESS Blood Pressure : / mmHG Vent. Rate : 096 BPM Atrial Rate : 000 BPM P-R Int : 000 ms QRS Dur : 088 ms QT Int : 324 ms P-R-T Axes : 000 101 158 degrees QTc Int : 409 ms Atrial fibrillation Rightward axis Low voltage QRS Nonspecific ST and T wave abnormality Abnormal ECG No previous ECGs available Referred By: Candi Lara Electronically Signed By:PAUL LOPEZ
[2024-02-27 14:21] LABS: MANUAL DIFF FLAG NO
[2024-02-27 14:25] LABS: Basophils Percent Auto 0.3 % (0-2); Eosinophils Percent Auto 0.2 % (0-4); Hematocrit 45.7 % (37.0-47.0); Hemoglobin 15.7 g/dl (12.0-16.0); Imm Gran Abs Auto 0.14 X10*3/uL (0.00-0.03); Imm Gran Pct Auto 1.3 % (0.0-0.4); Lymphocytes Absolute Auto 0.7 X10*3/uL (1.2-4.9); Lymphocytes Percent Auto 6.7 % (20-40); Mean Corpuscular HGB Conc 34.4 g/dl (31.0-35.0); Mean Corpuscular Hemoglobin 29.9 pg (27.0-33.0); Monocytes Absolute Auto 0.6 X10*3/uL (0.1-1.2); Neutrophils Absolute Auto 9.6 x10*3/uL (2.0-8.3); Neutrophils Percent Auto 86.5 % (45-73); Platelet Count 114 X10*3/uL (160-400); Red Blood Count 5.25 X10*6/uL (4.20-5.50); Red Cell Distribution Width 14.8 % (11.0-16.0)
[2024-02-27 14:28] LABS: Prothrombin Time 12.2 SEC (11.1-13.3)
[2024-02-27 14:46] LABS: B Type Natriuretic Peptide 262 pg/mL (<100)
[2024-02-27 14:48] LABS: Troponin-I High Sensitivity 26.8 ng/L (<3.5-17.0)
[2024-02-27 14:49] LABS: Alanine Aminotransferase 29 U/L (0-31); Albumin Level 3.6 g/dL (3.5-5.0); Alkaline Phosphatase 103 U/L (39-117); Anion Gap 20 (12-20); Aspartate Amino Transferase 15 U/L (5-31); Bilirubin Total 1.1 mg/dL (0.0-1.0); Blood Urea Nitrogen 24 mg/dL (9-16); Calcium 9.1 mg/dL (8.4-10.2); Carbon Dioxide 22 mmol/L (22-29); Chloride 99 mmol/L (96-108); Creatinine Clr Calc Pharmacy 27.5; Estimated Glomerular Filt Rate 37; Glucose Random 562 mg/dL (60-115); Potassium 4.7 mmol/L (3.3-5.1); Sodium 136 mmol/L (135-145); Total Protein 6.5 g/dL (6.5-8.0)
[2024-02-27 14:58] LABS: Influenza A PCR NEGATIVE (Negative); Influenza B PCR NEGATIVE (Negative); Resp Syncy Virus RNA Qual PCR NEGATIVE (Negative); SARS COV2 PCR INHOUSE NEGATIVE (Negative)
[2024-02-27 15:29] LABS: Beta-Hydroxybutyrate 2.11 mmol/L (0.02-0.27)
[2024-02-27 17:35] LABS: Glucose, Whole Blood 431 mg/dL (60-115)
[2024-02-27] MEDS: Lactated Ringers 1,000 ML 999 ML IV (18:04)
[2024-02-27 18:07] LABS: VBG Base Excess 1.5 mmol/L; VBG HCO3 25 mmol/L (22-26); VBG pCO2 36 mmHg; VBG pH 7.44 (7.32-7.43); VBG pO2 15 mmHg
[2024-02-27 18:07] LABS: Venous Blood Gas Refer to POC result
[2024-02-27] MEDS: Insulin Regular, Human 100 UNIT/ML 10 ML VIAL IVPUSH (18:07)
[2024-02-27 18:18] VITALS: BP 126/80; PULSE 98; RESP 16; TEMP 36.5; O2SAT 97
[2024-02-27 18:28] LABS: Troponin-I High Sensitivity 31.1 ng/L (<3.5-17.0)
[2024-02-27 18:42] LABS: Lactic Acid 4.7 mmol/L (0.5-2.0)
[2024-02-27 19:03] LABS: Troponin-I High Sensitivity 25.1 ng/L (<3.5-17.0)
[2024-02-27 19:13] LABS: Glucose, Whole Blood 337 mg/dL (60-115)
[2024-02-27 20:00] LABS: Reflex Lactate? Lactic Acid Added
[2024-02-27 20:13] VITALS: BP 113/83; PULSE 96; RESP 18; TEMP 36.7; O2SAT 96
[2024-02-27 20:32] LABS: Appearance Urine Clear; Color Urine Yellow; Glucose Urine UA >=1000 mg/dL (Negative); Leukocyte Esterase Urine Negative (Negative); Nitrite Urine Negative (Negative); PH 5.5 (5.0-9.0); Specific Gravity - Urine >= 1.030 (1.005-1.025); UMIC TRIGGER UACC YES; Urine Blood Negative (Negative); Urine Ketones 15 mg/dL (Negative); Urine Protein Negative (Neg-Trace)
[2024-02-27 20:58] LABS: ~Lactic Acid-LAB USE ONLY 2.9 mmol/L (0.5-2.0)
[2024-02-27 21:02] LABS: Bacteria Urine None Seen (None Seen); Hyaline Casts Urine 0-2 /LPF (0-2); RBC Urine 0-2 /HPF (0-2); Squamous Epithelial Cell Urine 0-2 /HPF (0-2); WBC Urine 0-5 /HPF (0-5)
[2024-02-27 22:00] VITALS: BP 107/80; PULSE 95; RESP 14; TEMP 36.6; O2SAT 97
--- NOTE | 2024-02-27 22:09 | P.HPHOSP_ITS ---
History of Present Illness Date of Service: 02/27/24 Attending physician on admission: Jeremy Rosado Chief Complaint: Weakness, lightheadedness Pt is a 78-year-old Tunisian-speaking female with a PMH significant for?chronic AFib on Eliquis, PAD s/p right foot 1st and 2nd toe amputations, HLD, HTN, PMR, [id number]-[id number] type 2 diabetes with neuropathy, CHF, CKD 3, interstitial lung disease, and GERD who presents to the ED with?increased weakness, lightheadedness, dizziness, polydipsia, and polyuria x1 week. Patient is accompanied by her daughter who was at bedside and helps supplement HPI. Patient also complains that things have been tasting ?bad? though her appetite has stayed roughly the same. Denies weight loss or recent vision changes. Chronic diabetic neuropathy at baseline. Patient states she was diagnosed with type 2 diabetes 5-7 years ago in [place]. Was originally placed on p.o. medication though she can not recall what this medication is. Moved to the area in 05/24/2023 and since then has not been on any diabetic medication. Has not been following her blood sugars. Patient states she does have a PCP, but has not been placed on any diabetic medications. Patient denies chest pain/pressure, palpitations. Chronic shortness of breath and HUSTON at baseline. Denies weight loss. No fever, chills, nausea, vomiting, abdominal pain. In the ED pt was Labs were significant for WBCs 11.0, creatinine 1.40, random glucose 562, lactic acid 4.7 with repeat 2.9, total bilirubin 1.1, initial troponin 26.8 with repeat flat at 25.1 and 31.1, and BNP 262. VB pH 7.44 with bicarb and pCO2 WNL. UA with sediment and glucose >=1000, and 15 ketones but negative for UTI. Tested negative for flu, COVID, RSV. CXR showed no acute cardiomegaly process. EKG demonstrated atrial fibrillation with nonspecific ST and T-wave abnormalities. Pt was treated with regular insulin 5 units IV and 2L IVF. Pt will be admitted to the hospital for treatment and further evaluation of symptomatic hyperglycemia without acidosis. Review of Systems 2 Review of Systems: Weakness Lightheadedness, dizziness Dysgeusia Polydipsia Chronic SOB and HUSTON at baseline Denies chest pain/pressure, palpitations No fever, chills, nausea, vomiting, abdominal pain [facility] Medical History Persistent atrial fibrillation CAD (coronary artery disease), [place] coronary artery Amputated toe of right foot Family History Mother HTN (hypertension) Diabetes Cardiovascular disease Skin cancer Father Substance abuse Alcoholism Social History Housing: Apartment Alcohol intake: never Patient Tobacco Use Status: Never used Tobacco Smoked in Last 30 Days: No e-Cigarette/Vaping Use: Never Used Second Hand Smoke Exposure: No Use of substances other than those prescribed or required for medical reasons: No Advance Directives: No Advance Directives Information Provided: Yes Do you have a plan to hurt others: No Plan service: No Current occupational status: retired Current occupational exposures/hazards: No Cognitive needs: Yes Hearing needs: Yes Vision needs: No Meds Allergies Allergy/AdvReac Type Severity Reaction Status Date / Time pineapple Allergy Mild rash Uncoded 02/27/24 13:51 Active Medications: Current Medications Glucose (Glucose Gel 15 Gm Gel..Gram.) 15 gm PO Q15M PRN; Protocol PRN Reason: per Hypoglycemia Standing Ord. Lactated Ringer's (Lr) 1,000 mls @ 125 mls/hr IV .Q8H [facility] Stop: 02/28/24 05:29 Dextrose (D10) 250 mls @ 750 mls/hr IV Q15M PRN; Protocol PRN Reason: per Hypoglycemia Standing Ord. Insulin Human Lispro (Insulin Lispro 100 Unit/Ml 3 Ml Vial) 0 unit SUBCUT QIDACHS ARACELI; Protocol Home Medications ?Medication ?Instructions ?Recorded ?Confirmed ?Last Taken ?Type multivitamin (Daily Multi-Vitamin 1 tab PO DAILY 10/27/23 Unknown History tablet) omega-3 fatty acids 500 mg capsule 500 mg PO DAILY 10/27/23 01/11/24 Unknown History Physical Exam 2 Vital Signs and Narrative: Vital Signs: Last Vital Signs Temp 98.0 F 02/27/24 20:13 Pulse 96 02/27/24 20:13 Resp 18 02/27/24 20:13 BP 113/83 02/27/24 20:13 Pulse Ox 96 02/27/24 20:13 O2 Del Method Room Air 02/27/24 20:13 BMI result Body Mass Index 25.7 General: AOx3, no acute distress Resp: CTA bilaterally CVS: S1, S2, RRR GI: +BS, NT, no distention Skin: Warm, dry Neuro: Cranial nerves II-XII grossly intact bilaterally. Motor grossly intact bilaterally. Symmetric global weakness noted. Extremities: No edema. Right foot s/p 1st and 2nd digit amputation. Feet clear without signs of ulcers or lesions. Psych: Appropriate affect Results Labs 02/27/24 14:16 02/27/24 14:16 Labs: Laboratory Results - last 24 hr 02/27/24 02/27/24 02/27/24 14:16 17:15 17:31 MCV 87.0 MCH 29.9 MCHC 34.4 RDW 14.8 Plt Count 114 L MPV 12.0 Immature Gran % (Auto) 1.3 H Neut % (Auto) 86.5 H Lymph % (Auto) 6.7 L [place] % (Auto) 5.0 Eos % (Auto) 0.2 Baso % (Auto) 0.3 Lymph # (Auto) 0.7 L [place] # (Auto) 0.6 Eos # (Auto) 0.0 Baso # (Auto) 0.0 Abs Immat Gran (auto) 0.14 H Absolute Neuts (auto) 9.6 H Absolute Nucleated RBC 0.000 Nucleated RBC % (auto) 0.0 PT 12.2 INR 1.0 VBG pH VBG pCO2 VBG pO2 VBG HCO3 VBG O2 Saturation VBG Base Excess Anion Gap 20 Estim Creat Clear Calc 27.5 Estimated GFR 37 POC Glucose 431 H* Random Glucose 562 H* Lactic Acid Lactic Acid F/U @ 2Hr Calcium 9.1 Total Bilirubin 1.1 H AST 15 ALT 29 Alkaline Phosphatase 103 Troponin I High Sens 26.8 H 25.1 H B-Natriuretic Peptide 262 H Total Protein 6.5 Albumin 3.6 Beta-Hydroxybutyrate 2.11 H Urine Color Urine Appearance Urine pH Ur Specific [place] Urine Protein Urine Glucose (UA) Urine Ketones Urine Blood Urine Nitrite Ur Leukocyte Esterase Urine RBC Urine WBC Ur Squamous Epith Cells Urine Bacteria Hyaline Casts Influenza Type A (PCR) NEGATIVE Influenza Type B (PCR) NEGATIVE RSV RNA Qual (PCR) NEGATIVE SARS-CoV-2 RNA (RT-PCR) NEGATIVE 02/27/24 02/27/24 02/27/24 17:54 18:02 19:08 MCV MCH MCHC RDW Plt Count MPV Immature Gran % (Auto) Neut % (Auto) Lymph % (Auto) [place] % (Auto) Eos % (Auto) Baso % (Auto) Lymph # (Auto) [place] # (Auto) Eos # (Auto) Baso # (Auto) Abs Immat Gran (auto) Absolute Neuts (auto) Absolute Nucleated RBC Nucleated RBC % (auto) PT INR VBG pH 7.44 H VBG pCO2 36 VBG pO2 15 VBG HCO3 25 VBG O2 Saturation 63.0 VBG Base Excess 1.5 Anion Gap Estim Creat Clear Calc Estimated GFR POC Glucose 337 H Random Glucose Lactic Acid 4.7 H* Lactic Acid F/U @ 2Hr Calcium Total Bilirubin AST ALT Alkaline Phosphatase Troponin I High Sens 31.1 H B-Natriuretic Peptide Total Protein Albumin Beta-Hydroxybutyrate Urine Color Urine Appearance Urine pH Ur Specific [place] Urine Protein Urine Glucose (UA) Urine Ketones Urine Blood Urine Nitrite Ur Leukocyte Esterase Urine RBC Urine WBC Ur Squamous Epith Cells Urine Bacteria Hyaline Casts Influenza Type A (PCR) Influenza Type B (PCR) RSV RNA Qual (PCR) SARS-CoV-2 RNA (RT-PCR) 02/27/24 02/27/24 20:18 20:26 MCV MCH MCHC RDW Plt Count MPV Immature Gran % (Auto) Neut % (Auto) Lymph % (Auto) [place] % (Auto) Eos % (Auto) Baso % (Auto) Lymph # (Auto) [place] # (Auto) Eos # (Auto) Baso # (Auto) Abs Immat Gran (auto) Absolute Neuts (auto) Absolute Nucleated RBC Nucleated RBC % (auto) PT INR VBG pH VBG pCO2 VBG pO2 VBG HCO3 VBG O2 Saturation VBG Base Excess Anion Gap Estim Creat Clear Calc Estimated GFR POC Glucose Random Glucose Lactic Acid Lactic Acid F/U @ 2Hr 2.9 H* Calcium Total Bilirubin AST ALT Alkaline Phosphatase Troponin I High Sens B-Natriuretic Peptide Total Protein Albumin Beta-Hydroxybutyrate Urine Color Yellow Urine Appearance Clear Urine pH 5.5 Ur Specific [place] >= 1.030 H Urine Protein Negative Urine Glucose (UA) >=1000 H Urine Ketones 15 Urine Blood Negative Urine Nitrite Negative Ur Leukocyte Esterase Negative Urine RBC 0-2 Urine WBC 0-5 Ur Squamous Epith Cells 0-2 Urine Bacteria None Seen Hyaline Casts 0-2 Influenza Type A (PCR) Influenza Type B (PCR) RSV RNA Qual (PCR) SARS-CoV-2 RNA (RT-PCR) Imaging Radiologist's Impressions: Impressions Chest X-Ray 02/27/24 17:29 IMPRESSION: Unremarkable examination. Electronically signed by: Bridger Mills MD 02/27/2024 06:26 PM EDT RP Assessment and Plan (1) Weakness: Status: Acute (2) Acute hyperglycemia: Status: Acute Plan Pt is a 78-year-old Tunisian-speaking female with a PMH significant for?chronic AFib on Eliquis, PAD s/p right foot 1st and 2nd toe amputations, HLD, HTN, PMR, [id number] type 2 diabetes with neuropathy, CHF, CKD 3, interstitial lung disease, and GERD who presents to the ED with?increased weakness, lightheadedness, dizziness, polydipsia, and polyuria x1 week. Pt will be admitted to the hospital for treatment and further evaluation of symptomatic hyperglycemia without acidosis. Hyperglycemia without acidosis Initial random glucose 562, beta hydroxybutyrate 2.11 UA showing ketones, but VBG pH 7.44, bicarb WNL Patient diagnosed with non insulin-dependent type 2 diabetes in [place] 5-7 years ago Apparently has not been on diabetic medication since moving here in 05/24/2023 Patient received 2L IVF and 5 units insulin in the ED Will place on sliding scale insulin, diabetic diet Will check A1c Maximize outpatient diabetic medication upon discharge Monitor POC Lactic acidosis Initial lactic acid 4.7 with repeat 2.9 after IVF In the setting of hyperglycemia No indication of active infection, no sepsis Chronic AFib Continue metoprolol, Eliquis, digoxin HTN Acceptable control on current therapies Continue amlodipine, lisinopril HLD Contiune statin PAD Continue clopidogrel GERD Continue PPI Full Code Attending:?Dr. Rosado DVT Prophylaxis: On Eliquis Pt will require a hospitalization of at least two nights for treatment of?symptomatic hyperglycemia without acidosis secondary to medication noncompliance. Given patient's symptoms and high risk for decompensation given her multiple comorbidities, patient will require hospitalization for glycemic control and close monitoring POCs. Quality Stroke Does the patient have a stroke diagnosis?: No VTE Prior VTE?: No VTE Risk Level:: Medical - moderate - high VTE Device Contraindication: Treatment Not Indicated VTE Drug Contraindication: N/A - Med Ordered
[2024-02-27 22:29] LABS: Reflex Lactate? 2 Y
[2024-02-27 22:37] LABS: Cancel Lactic Acid Canceled
[2024-02-28] VITALS (9 sets, daily range): BP systolic 108–156; BP diastolic 36–101; PULSE 63–114; RESP 16–23; TEMP 36.6–37.1; O2SAT 92–97
[2024-02-28] MEDS: Lactated Ringers 1,000 ML 125 ML IV (02:00)
[2024-02-28 05:18] LABS: Estimated Average Glucose 338 mg/dL; Hemoglobin A1c % 13.4 % (<6.0)
[2024-02-28 07:35] LABS: Glucose, Whole Blood 215 mg/dL (60-115)
[2024-02-28] MEDS: Insulin Lispro 100 UNIT/ML 3 ML VIAL SUBCUT ×4 (08:14→21:04)
[2024-02-28] MEDS: 0.9 % Sodium Chloride Flush 3 ML SYRINGE IVFLUSH ×3 (08:15→21:06)
--- NOTE | 2024-02-28 08:19 | MHC.EDTECH ---
gave patient breakfast tray and also walked her to the bathroom
--- NOTE | 2024-02-28 09:32 | PHA.MEDREC ---
Addendum entered by Bart Steven RPh 02/28/24 09:59: Med rec was reviewed by [facility]. Original Note: Pharmacy Consult ? Medication Reconciliation Pharmacy has completed the medication reconciliation. Spoke to patient through rotary dump operator service. Patient was a poor historian. She stated she doesn't know what she takes to call per daughter. Called and spoke to patient's daughter Tracey. Tracey was able to confirm medications, Daughter states patient is on Amlodipine 10 mg Daily, however last fill was 09-26-23 for 30 days supply, Prednisone 10 mg taper dose 30 mg daily X7 days, 20 mg daily X7 days, 10 mg daily X7 days, 5 mg daily X7 days. ( PATIENT IN NOW ON:the first day of week two 20 mg daily X7 days.)
[2024-02-28 12:03] LABS: Glucose, Whole Blood 306 mg/dL (60-115)
--- NOTE | 2024-02-28 12:11 | MHC.CM.PN ---
Addendum entered by Sharon Worley 02/28/24 14:43: [facility] LIAISON MET WITH PT AND DAUGHTER TO DISCUSS POTENTIAL SERVICES HOWEVER REFERRAL WAS PLACED TO [facility] DUE TO PTS HOME ADDRESS REFERRAL MADE FOR HOMEMAKING, PERSONAL CARE, NUTRITION, AND MOW Original Note: CM MET WITH PTS DAUGHTER WHO REPORTS THE PT LIVES WITH HER AND SHE ASSISTS PRN PT HAS A CANE AND WALKER DAUGHTER REPORTS SHE DID TRY TO GET IMPREGNATOR OPERATOR SERVICES BUT DID NOT FEEL [facility] WAS HELPFUL PER DISCUSSION, A REFERRAL WAS MADE TO [facility] SHE SAYS HER MOTHER DOES NOT HAVE A HCP, SHE WILL DISCUSS IT WITH HER AND IS AWARE CM CAN ASSIST IF SHE WANTS TO COMPLETE ONE PCP: [facility] DELIVERED DCP: HOME WITH [facility] REFERRAL AND POSSIBLE [facility] REFERRAL SENT TO [facility] PER DISCUSSION WITH DAUGHTER DAUGHTER TO TRANSPORT
[2024-02-28 14:32] LABS: Anion Gap 14 (12-20); Blood Urea Nitrogen 20 mg/dL (9-16); Calcium 8.9 mg/dL (8.4-10.2); Carbon Dioxide 24 mmol/L (22-29); Chloride 101 mmol/L (96-108); Creatinine Clr Calc Pharmacy 37.1; Estimated Glomerular Filt Rate 52; Glucose Random 300 mg/dL (60-115); Potassium 3.7 mmol/L (3.3-5.1); Sodium 135 mmol/L (135-145)
--- NOTE | 2024-02-28 16:20 | MHC.EDTECH ---
This pct assumed care of p[atient at 1500 ,vitals taken ,Pt watching television ,no apparent distress noted ,Pt daughter at bedside ,Plan of care continue .Call pulido within pt reach .
--- NOTE | 2024-02-28 16:53 | MHC.EDTECH ---
TYRONE Kramer said not to check blood sugar until dinner comes .
[2024-02-28 18:07] LABS: Glucose, Whole Blood 341 mg/dL (60-115)
[2024-02-28 18:12] LABS: Glucose, Whole Blood 376 mg/dL (60-115)
--- NOTE | 2024-02-28 19:08 | PM.EVENT ---
Event Note Date of Service: 02/28/24 Event Note: Labs and imaging reviewed. Patient seen. Assessment and Plan: #. Uncontrolled wdb-qdyvbfa-ftpzzqsjv diabetes mellitus with hyperglycemia: Patient has not been compliant with medications for type 2 diabetes mellitus. Will add Lantus to sliding scale insulin. Closely monitor blood glucose levels. Chronic AFib Continue metoprolol, Eliquis, digoxin HTN Continue amlodipine, lisinopril HLD Contiune statin PAD Continue clopidogrel GERD Continue PPI Full Code Completed med rec DVT prophylaxis: Eliquis Full code Continued hospitalization for monitoring blood glucose Time Spent With Patient Time: Total time managing care of this patient today ____ minutes.
[2024-02-28 20:20] LABS: Glucose, Whole Blood 444 mg/dL (60-115)
[2024-02-28] MEDS: predniSONE 10 MG TABLET 20 MG PO (21:02)
[2024-02-28] MEDS: Apixaban 5 MG TABLET PO (21:02)
[2024-02-28] MEDS: Insulin Glargine,Hum.rec.anlog 100 UNIT/ML 10 ML VIAL 12 UNIT SUBCUT (21:04)
[2024-02-28] MEDS: Melatonin 3 MG TABLET 6 MG PO (23:01)
[2024-02-29 03:02] VITALS: BP 133/89; PULSE 90; RESP 17; TEMP 36.2; O2SAT 98
--- NOTE | 2024-02-29 03:54 | PC.NURSE ---
Pt is an moderate fall risk, but refusing all bed alarm despite being educated, per pt is independent at home with walker. Pt educated the importance of using the call pulido for assistance OOB. Pt's bed in lowest position, call pulido with in reach. Will continue to monitor. Plan of care ongoing.
--- NOTE | 2024-02-29 05:44 | PC.NURSE ---
Late entry: Bedtime POC 444. MD Wetzel made aware of the critical POC. No new orders at this time. ARACELI SSI and Lantus administered to pt, see MAR. Will continue to monitor pt's POC. Plan of care ongoing.
[2024-02-29] MEDS: Pantoprazole Sodium 20 MG TABLET.DR PO (06:16)
[2024-02-29 07:20] VITALS: TEMP 36.5
[2024-02-29 08:06] LABS: Glucose, Whole Blood 252 mg/dL (60-115)
[2024-02-29] MEDS: Insulin Lispro 100 UNIT/ML 3 ML VIAL SUBCUT ×2 (08:15→11:20)
[2024-02-29] MEDS: lisinopriL 40 MG TABLET PO (08:15)
[2024-02-29] MEDS: Furosemide 40 MG TABLET PO (08:16)
[2024-02-29] MEDS: Clopidogrel Bisulfate 75 MG TABLET PO (08:16)
[2024-02-29] MEDS: 0.9 % Sodium Chloride Flush 3 ML SYRINGE IVFLUSH (08:16)
[2024-02-29] MEDS: Apixaban 5 MG TABLET PO (08:16)
[2024-02-29] MEDS: Atorvastatin Calcium 40 MG TABLET PO (08:16)
[2024-02-29] MEDS: Multivitamin TABLET 1 TAB PO (08:16)
[2024-02-29] MEDS: Metoprolol Tartrate 50 MG TABLET PO (08:16)
[2024-02-29] MEDS: predniSONE 10 MG TABLET 20 MG PO (08:16)
[2024-02-29] MEDS: amLODIPine Besylate 10 MG TABLET PO (08:16)
[2024-02-29] MEDS: Digoxin 0.125 MG TABLET PO (08:16)
[2024-02-29 11:16] LABS: Glucose, Whole Blood 505 mg/dL (60-115)
[2024-02-29] MEDS: glipiZIDE XL 5 MG TAB.ER.24 PO (11:20)
[2024-02-29 13:16] VITALS: BP 133/89; PULSE 90; O2SAT 98
[2024-02-29 15:29] LABS: Glucose, Whole Blood 333 mg/dL (60-115)
--- NOTE | 2024-02-29 16:02 | PM.DS ---
DS: Providers Provider Date of Service: 02/29/24 Date of admission: 02/27/24 22:56 Date of discharge: 02/29/24 [facility]: Diagnosis Discharge Diagnosis (1) Weakness: Status: Acute (2) Acute hyperglycemia: Status: Acute DS: Summary Hospital Course Hospital Course: History of presenting illness: Date of Service: 02/27/24 Attending physician on admission: Jeremy Rosado Chief Complaint: Weakness, lightheadedness Pt is a 78-year-old Slovak-speaking female with a PMH significant for?chronic AFib on Eliquis, PAD s/p right foot 1st and 2nd toe amputations, HLD, HTN, PMR, qzk-hkqgjiz-qnqgusyez type 2 diabetes with neuropathy, CHF, CKD 3, interstitial lung disease, and GERD who presents to the ED with?increased weakness, lightheadedness, dizziness, polydipsia, and polyuria x1 week. Patient is accompanied by her daughter who was at bedside and helps supplement HPI. Patient also complains that things have been tasting ?bad? though her appetite has stayed roughly the same. Denies weight loss or recent vision changes. Chronic diabetic neuropathy at baseline. Patient states she was diagnosed with type 2 diabetes 5-7 years ago in [place]. Was originally placed on p.o. medication though she can not recall what this medication is. Moved to the area in 05/24/2023 and since then has not been on any diabetic medication. Has not been following her blood sugars. Patient states she does have a PCP, but has not been placed on any diabetic medications. Patient denies chest pain/pressure, palpitations. Chronic shortness of breath and HUSTON at baseline. Denies weight loss. No fever, chills, nausea, vomiting, abdominal pain. In the ED pt was Labs were significant for WBCs 11.0, creatinine 1.40, random glucose 562, lactic acid 4.7 with repeat 2.9, total bilirubin 1.1, initial troponin 26.8 with repeat flat at 25.1 and 31.1, and BNP 262. VB pH 7.44 with bicarb and pCO2 WNL. UA with sediment and glucose >=1000, and 15 ketones but negative for UTI. Tested negative for flu, COVID, RSV. CXR showed no acute cardiomegaly process. EKG demonstrated atrial fibrillation with nonspecific ST and T-wave abnormalities. Pt was treated with regular insulin 5 units IV and 2L IVF. Pt will be admitted to the hospital for treatment and further evaluation of symptomatic hyperglycemia without acidosis. Hospital course: 78-year-old female with multiple medical problems including chronic AFib on Eliquis, hypertension, hyperlipidemia, CKD, CHF, bwd-lgwtrax-jzizqamuv type 2 diabetes mellitus not on home medication presented to [facility] due to generalized weakness, lightheadedness dizziness polydipsia and polyuria and diagnosed to have elevated blood sugars, admitted to [facility] with a diagnosis of diabetes mellitus with hyperglycemia, patient admitted to medical floor treated with fluids, Lantus and insulin sliding scale blood sugars improved patient also noted to have acute lactic acidosis that improved with IV hydration, patient currently on tapering dose of steroids that also contributed to hyperglycemia since patient feeling significantly better with resolution of all of symptoms of weakness dizziness and polyuria she is being discharged home on Lantus 15 units at bedtime, glipizide XL 5 mg daily and insulin sliding scale patient daughter is willing to administer insulin she is being discharged home with VNA services for diabetic teaching and blood sugar monitoring, her hemoglobin A1c is 13.4. She is recommended to continue all home medications and to have close outpatient follow-up with primary care physician. Time Attestation Discharge Coordination Time (in mins): 40 Quality: Safe Use of Opioids Does Pt have an Active Cancer Diagnosis on the Problem List?: No Quality: Stroke Does the patient have a stroke diagnosis?: No Physical Exam Vital Signs: Vital Signs: Last Vital Signs Temp 97.2 F 02/29/24 03:02 Pulse 90 02/29/24 13:16 Resp 17 02/29/24 03:02 BP 133/89 02/29/24 13:16 Pulse Ox 98 02/29/24 13:16 O2 Del Method Nasal Cannula 02/29/24 03:02 O2 Flow Rate 2 02/29/24 03:02 BMI result Body Mass Index 25.7 Const: Other: General awake alert x3, in no acute distress. Neck no JVD. CVS regular rate rhythm, Respiratory lungs clear to auscultation, no respiratory distress, no wheeze, no rhonchi. Gastrointestinal abdomen soft, non tender, bowel sounds audible Extremities no edema. Right foot status post 1st and 2nd digit amputation. Neuro non focal Skin no rash Appropriate affect DS: Data Data Completed and Pending Labs on day of discharge: Laboratory Results - last 24 hr 02/28/24 02/28/24 02/28/24 17:53 18:09 20:09 POC Glucose 341 H 376 H* 444 H* 02/29/24 02/29/24 02/29/24 07:39 11:05 15:26 POC Glucose 252 H 505 H* 333 H Preliminary micro results at discharge 02/27/24 17:54 Blood Culture - Preliminary Blood - Venous No growth after 24 hours. 02/27/24 17:54 Blood Culture - Preliminary Blood - Venous No growth after 24 hours. Discharge Plan Discharge Anticipated Discharge Date/Time: 02/29/24 10:19 Patient Disposition: Home Health Service Discharge Diagnosis: Diabetes mellitus with hyperglycemia Lactic acidosis Referrals: [facility] [Outside] - 3-5 Days ([facility] FOR DISEASE MANAGEMENT TEACHING- A NURSE WILL CALL YOU TO SET UP FIRST VISIT.) Merlyn Malone, [employer] [Primary Care Provider] - 1 Week Discharge Medications: New glipizide 5 mg Tablet Extended Release 24hr 5 mg PO DAILY Qty: 30 0RF insulin lispro [Admelog U-100 Insulin lispro] 100 unit/mL Solution See Protocol subcut QIDACHS Qty: 10 0RF Protocol: Insulin Correction Scale Less than or equal to 110 ---- Give (units): 0 111 to 150 Give (units): 0 151 to 200 Give (units): 2 201 to 250 Give (units): 8 251 to 300 Give (units): 10 301 to 350 Give (units): 12 Greater than 350 Give (units): 14 Call MD if Blood Glucose > : 350 Rx Instructions: BG <111 0 units, 111-150 - 0 units, 151-200 4 units, 201-250 8 units, 251-300 10 units, 301-350 12 units, >350 14 units (DME) FreeStyle Lite Strips Strip Qty: 100 0RF Rx Instructions: Test four times a day or as directed. (DME) blood-glucose meter [FreeStyle Lite Meter] Kit Qty: 1 0RF Rx Instructions: As Directed alcohol swabs Pads, Medicated 1 pad TOPICAL QIDACHS Qty: 100 0RF Rx Instructions: Use four times a day or as directed. insulin glargine [Lantus Solostar U-100 Insulin] 100 unit/mL (3 mL) insulin pen 15 unit SUBCUT DAILY Qty: 15 0RF (DME) pen needle, diabetic 32 gauge x 1/4 needle Qty: 100 0RF Rx Instructions: Use four times a day or as directed. (DME) lancets [FreeStyle Lancets] 28 gauge misc Qty: 100 0RF Rx Instructions: Test four times a day or as directed. Continued (DME) BIPAP See Rx Instructions .Route .MEDSUPPLY Qty: 1 12RF Rx Instructions: Bipap 17 device with medium airfit F20 mask, use QHS. amlodipine 10 mg tablet 10 mg PO DAILY Qty: 90 1RF lisinopril 40 mg tablet 40 mg PO DAILY Qty: 90 0RF rosuvastatin 10 mg tablet 10 mg PO DAILY Qty: 90 1RF Eliquis 5 mg tablet 5 mg PO BID Qty: 180 0RF clopidogrel 75 mg tablet 75 mg PO DAILY Qty: 90 0RF digoxin 125 mcg (0.125 mg) tablet 125 mcg PO DAILY Qty: 90 0RF furosemide 40 mg tablet 40 mg PO DAILY Qty: 90 0RF metoprolol tartrate 50 mg tablet 50 mg PO DAILY Qty: 90 0RF omeprazole 20 mg capsule,delayed release(DR/EC) 20 mg PO DAILY@0630 cholecalciferol (vitamin D3) 1,250 mcg (50,000 unit) capsule 1,250 mcg PO MO omega-3 fatty acids 500 mg capsule 500 mg PO DAILY multivitamin [Daily Multi-Vitamin] Tablet 1 tab PO DAILY prednisone 10 mg tablet 10 mg PO DIRECTED Qty: 46 0RF Rx Instructions: see taper instructions Take 3 pills daily for 7 days, 2 pills daily for 7 days, 1 pill daily x 7 days and 1/2 pill daily for 7 days. 46 tablets 28 days ( PATIENT IS ON: first day of second week of 20 mg daily X7 days.) Discharge Orders: Discharge Order (Routine); Ordered 02/29/24 Ordered By: Matthew Car Diet: Diabetic diet Activity on Discharge: As tolerated Stand Alone Forms: Patient Portal Discharge page Print Language: Taiwanese Care Plan Goals: Diabetes mellitus type 2 with hyperglycemia, follow diabetic diet Health Concerns: Can continue prednisone taper as ordered Continue all home medications as before. Take Lantus SubQ 15 units at bedtime, glipizide XL 5 mg daily, monitor blood sugar before meals and at bedtime and use insulin sliding scale Plan of Treatment: Outpatient follow-up with primary care physician call for appointment in next 1-2 weeks Assessment: as above Discharge Date/Time: 02/29/24 16:39
--- NOTE | 2024-02-29 16:04 | MHC.CM.PN ---
DP: PT HAS BEEN MEDICALLY CLEARED FOR DC HOME WITH [facility]. [facility] UPDATED ON TODAY'S DC. DAUGHTER AWARE AND WILL TRANSPORT HOME.
--- NOTE | 2024-02-29 16:51 | W.MHC.F2F ---
Service Date Service Date: 02/29/24 Encounter Date of encounter: 02/29/24 Reasons for Services Signs and symptoms assessed: Hyperglycemia/weakness/polyuria, polydipsia Reason for group home: diabetic teaching, monitoring of unstable blood sugar and medication management Homebound: Leaving the home is medically contraindicated at this time without the asist of a device and/or another person due th the listed conditions above and below. Reason homebound: weakness related to hospital stay Certification: Based on the above findings, I certify that this patient is confined to the home and needs intermittent group home care, physical therapy and/or speech therapy, or continues to need occupational therapy. The patient is under my care, and I have initiated the establishment of the plan of care. The patient will be followed by a physician who will periodically review the plan of care. Time Spent With Patient Time: Total time managing care of this patient today ____ minutes.
== END 2024-02-29 16:39 | disposition home health service (06) | DRG 638 ==
LOC: HO.ED 22:55 → HO.EDOVER 02-28 05:57 → HO.S3 02-28 16:52
PROVIDERS: Registered Nurse Emergency; Student in an Organized Health Care Education/Training Program; Admitting Provider Student in an Organized Health Care Education/Training Program; Emergency Provider Emergency Medicine Emergency Medical Services; PCP Nurse Practitioner Family; Visit Provider Hospitalist
DX: E11.65 Type 2 diabetes mellitus with hyperglycemia (principal); I13.0 Hypertensive heart and chronic kidney disease with heart failure and stage 1 through stage 4 chronic kidney disease, or unspecified chronic kidney disease; I48.20 Chronic atrial fibrillation, unspecified; N18.30 Chronic kidney disease, stage 3 unspecified; E11.22 Type 2 diabetes mellitus with diabetic chronic kidney disease; I25.10 Atherosclerotic heart disease of native coronary artery without angina pectoris; I50.9 Heart failure, unspecified; E11.40 Type 2 diabetes mellitus with diabetic neuropathy, unspecified; E11.51 Type 2 diabetes mellitus with diabetic peripheral angiopathy without gangrene; Z20.822 Contact with and (suspected) exposure to COVID-19; Z91.148 Patient's other noncompliance with medication regimen for other reason; Z91.199 Patient's noncompliance with other medical treatment and regimen due to unspecified reason; Z79.01 Long term (current) use of anticoagulants; Z79.02 Long term (current) use of antithrombotics/antiplatelets; Z79.899 Other long term (current) drug therapy
CPT/HCPCS: 0241U; 36415; 71045; 80048; 80053; 81001; 82010; 82803; 82947; 83036; 83605; 83880; 84484; 85025; 85610; 87040; 92950; 93005; 97161; 99285; J7120

== ENCOUNTER → 2024-02-27 17:52 | Outpatient (BNV) | payer MEDICARE, MEDICAID, SELFPAY | PROVIDERS: Emergency Provider Emergency Medicine Emergency Medical Services; PCP Nurse Practitioner Family; Visit Provider Student in an Organized Health Care Education/Training Program | DX: R53.1 Weakness (principal); R73.9 Hyperglycemia, unspecified | CPT/HCPCS: 99223; 99239; G0180 ==

== ENCOUNTER 2024-03-10 09:01 | Outpatient (AMB) | payer MEDICARE, MEDICAID, SELFPAY ==
--- NOTE | 2024-03-10 09:05 | A.OFFPC_ITS ---
Vital Signs 03/10/24 09:15 Height 5 ft Weight 141 lb BMI 27.5 BP 118/64 Blood Pressure Location Rt brachial Position Sitting Respiration 16 Pulse 88 Pulse Source Pulse Oximeter Pulse Oximetry (%) 100 Oxygen Delivery Method Room Air Intake Visit Reasons: TCM Intake Note: Emergency room follow up Yacht Master Required: No Allergies pineapple Allergy (Mild, Uncoded 03/10/24 09:06) rash birds Allergy (Unknown, Uncoded 03/10/24 09:07) Unknown Medication List - Last Reconciled 03/10/24 by Merlyn Malone, MACHINE SORTER- alcohol swabs 1 pad topical QIDACHS amlodipine 10 mg PO DAILY apixaban (Eliquis) 5 mg PO BID [BIPAP Bipap 20/06 device with medium airfit F20 mask, use QHS. ] blood sugar diagnostic (FreeStyle Lite Strips) Test four times a day or as directed. blood-glucose meter (FreeStyle Lite Meter kit) As Directed cholecalciferol (vitamin D3) 1,250 mcg PO DAILY clopidogrel 75 mg PO DAILY digoxin 125 mcg PO DAILY furosemide 40 mg PO DAILY glipizide ER 5 mg PO DAILY insulin glargine (Lantus Solostar U-100 Insulin) 15 units (0.15 mL) subcut DAILY insulin lispro (Admelog U-100 Insulin lispro) See Protocol units subcut QIDACHS lancets (FreeStyle Lancets) Test four times a day or as directed. lisinopril 40 mg PO DAILY metoprolol tartrate 50 mg PO DAILY multivitamin (Daily Multi-Vitamin tablet) 1 tab PO DAILY omega-3 fatty acids 500 mg PO DAILY omeprazole 20 mg PO DAILY@0630 pen needle, diabetic Use four times a day or as directed. 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, PMR, left ankle osteoarthritis, cervical myalgia, hyperlipidemia, bilateral lower extremity edema, diabetes type 2, diabetic retinopathy, diabetic neuropathy, GERD, CHF, angina, chronic interstitial lung disease, lung nodules, hiatal hernia, CKD3 with secondary hyperparathyroidism, CLARENCE presented to [facility] due to generalized weakness, lightheadedness dizziness polydipsia and polyuria and diagnosed to have elevated blood sugars, admitted to [facility] with a diagnosis of diabetes mellitus with hyperg lycemia, patient admitted to medical floor treated with fluids, Lantus and insulin sliding scale blood sugars improved patient also noted to have acute lactic acidosis that improved with IV hydration, patient currently on tapering dose of steroids that also contributed to hyperglycemia since patient feeling significantly better with resolution of all of symptoms of weakness dizziness and polyuria she is being discharged home on Lantus 15 units at bedtime, glipizide XL 5 mg daily and insulin sliding scale patient daughter is willing to administer insulin she is being discharged home with VNA services for diabetic teaching and blood sugar monitoring, her hemoglobin A1c is 13.4. Admission Date: 02/27/2024 Discharge Date: 02/29/2024 Hospital: [facility] Pending diagnostic tests/treatments: none Pending consults: DME: PT/OT/HOOKER INSPECTOR: [facility] 3-5 Days (HOME SERVICES FOR RESIDENTIAL FOR DISEASE MANAGEMENT TEACHING- A NURSE WILL CALL YOU TO SET UP FIRST VISIT.) Referrals: none Medications reconciled & updated. glipizide 5 mg Tablet Extended Release 24hr 5 mg PO DAILY Qty: 30 0RF insulin lispro [Admelog U-100 Insulin lispro] 100 unit/mL Solution See Protocol subcut QIDACHS Qty: 10 0RF Protocol: Insulin Correction Scale Less than or equal to 110 ---- Give (units): 0 111 to 150 Give (units): 0 151 to 200 Give (units): 2 201 to 250 Give (units): 8 251 to 300 Give (units): 10 301 to 350 Give (units): 12 Greater than 350 Give (units): 14 Call MD if Blood Glucose > : 350 Rx Instructions: BG <111 0 units, 111-150 - 0 units, 151-200 4 units, 201-250 8 units, 251-300 10 units, 301-350 12 units, >350 14 units (DME) FreeStyle Lite Strips Strip Qty: 100 0RF Rx Instructions: Test four times a day or as directed. (DME) blood-glucose meter [FreeStyle Lite Meter] Kit Qty: 1 0RF Rx Instructions: As Directed alcohol swabs Pads, Medicated 1 pad TOPICAL QIDACHS Qty: 100 0RF Rx Instructions: Use four times a day or as directed. insulin glargine [Lantus Solostar U-100 Insulin] 100 unit/mL (3 mL) insulin pen 15 unit SUBCUT DAILY Qty: 15 0RF @ bedtime (DME) pen needle, diabetic 32 gauge x 1/4 needle Qty: 100 0RF (DME) lancets [FreeStyle Lancets] 28 gauge misc Qty: 100 0RF Rx Instructions: Test four times a day or as directed. Today she reports that she has been referred to [facility]. They came to the home to perform the assessment and then told them that they do not work with her insurance. She needs a new referral. The patient declines any physical therapy. She walks with a walker and a cane. Has not had any falls since her return home. Feels like she is strong enough and does not want physical therapy. She reports tolerance and compliance with her new medication regimen. The daughter has been helping her check her blood sugars. She reports that the blood sugars in the morning have been low to in the 60s in the 80s. They have been around 250 after breakfast and before lunch, in the 300s around dinnertime. Taking Lantus at bedtime. She also complains today of some vaginal itching and blood in the toilet paper when she wipes. This started towards the end of her hospitalization. She tried something [id number] to help with short-lived relief. She also endorses diarrhea on and off. It was not bloody or associated with abdominal pain. She uses Pepto-Bismol with positive effect. The daughter informs me that this is not a new complaint, rather a chronic ongoing 1 that is no worse than it has been over the last several years. Finally she complains not being able to fall asleep. The daughter reports that the mother becomes easily angered, cries and gets upset. Wonders if there is anything that can be given to help her. Exam: awake alert accompanied by dtr, pleasant, cooperative PAF, 1/6 systolic murmur LS dim throughout + suprapubic tenderness, no cvat bilat BLE nonpalp pedal pulses, skin w chronic hemosiderin. Right foot s/p great and 2nd toe amps with well healed surgical incision. No edema BLE Bilat hands w/ dupytrens contractures, Left ring finger mostly effected Plan Ultimately I would like to get her off with the insulin. The reason that her hemoglobin A1c is elevated is due to the prednisone that is being used to treat her pulmonary condition. I do believe that the plan is to get her off of the prednisone shortly. In the interim I would like to decrease her Lantus to 10 units, I would like this to be given around lunchtime to see if we can get rid of the hypoglycemia in the morning. I would like to start her on Farxiga for diabetes control. Her daughter is checking her blood sugars. The patient is not able to do this on her own. The plan will be to give her a continuous glucose monitor. The patient is agreeable to this. I will refer to the nurse navigator to help ensure that there is no insurance barriers and to ensure education is provided. I have placed a referral to the [facility] for home services. A urinalysis was done, see results below. We will treat her for UTI as well as vaginal yeast. If no improvement in symptoms, advised to let me know. For the mood & insomnia, we will start mirtazapine 7.5 mg p.o. at bedtime. RTO in 2 weeks for close interim f/u, sooner PRN During todays TCM visit, the d/c summary was reviewed, along with the need for or follow-up on pending diagnostic tests and treatments, as necessary interaction with other health managed care nurse who will assume or reassume care of the beneficiary?s system-specific problems was done or is being worked on, education was provided to the beneficiary, family, guardian, and/or caregiver, referrals to establish or re-establish and arrange needed community resources we completed, assistance in scheduling required follow-up with [facility] providers and services & finally updated medication list given to patient/caregiver This note is constructed using voice recognition software. While every effort has been made to ensure accuracy in mine engineering supervisor, still errors may have been included Sometimes, these errors may affect the content or meaning of the given sentence . Total time spent caring for the patient today was 72 minutes. This includes time spent before the visit reviewing the chart, time spent during the visit, and time spent after the visit on documentation [facility] Medical History Persistent atrial fibrillation CAD (coronary artery disease), [place] coronary artery Amputated toe of right foot Family History Mother HTN (hypertension) Diabetes Cardiovascular disease Skin cancer Father Substance abuse Alcoholism Social History Household Members: Family Household Members Other:: daughter Housing: Apartment Do you presently have visiting nurse or other home services: No Alcohol intake: never Comment: pt refused all alarms Patient Tobacco Use Status: Never used Tobacco e-Cigarette/Vaping Use: Never Used Second Hand Smoke Exposure: No service: No Current occupational status: retired Current occupational exposures/hazards: No Cognitive needs: Yes Hearing needs: Yes Vision needs: No Questionnaire Thrive Questionnaire Date Thrive assessed: 02/28/24 NINO-7 AMB Questionnaire NINO-7 Date NINO - 7 assessed: 10/15/23 Source: Developed by Drs. Dat Mendes, Porsche Bah, Avila Matson and colleagues, with an educational frank from [employer]. Physical exam (Primary Care) Vital Signs: Last Vital Signs Pulse 88 03/10/24 09:15 Resp 16 03/10/24 09:15 BP 118/64 03/10/24 09:15 Pulse Ox 100 03/10/24 09:15 Oxygen Delivery Method Room Air 03/10/24 09:15 BMI result Body Mass Index 27.5 Tobacco/Smoking Status: Tobacco use Status Tobacco use date assessed 10/15/23 03/10/24 09:05 Patient Tobacco Use Status Never used Tobacco 03/10/24 09:05 e-Cigarette/Vaping Use Never Used 03/10/24 09:05 Thrive Assessment: Date of Thrive Assessment Date Thrive assessed 02/28/24 03/10/24 09:05 Results AMB Hemoglobin A1c AMB Hemoglobin A1c 12.8 % Last Edit by Roseanne Win CMA on 03/10/24 09:2 2 Results Reviewed Results Reviewed: Laboratory Last Values Hgb A1c (Clinic) 12.8 % (4.0-6.0) H 03/10/24 09:19 [facility] [address] [place] [id number] Chuck Wagon Cook: Luis Anna M.D. Specimen Inquiry Name: Benedict Babinina Age/Sex: 78/F : 1945 Unit#: [id number] Attend Dr: Merlyn Malone Re03/10/24 Status: DEP REF Location: [facility] Disch: SPEC : [id number] YULISA: 03/10/24 STATUS: COMP REQ : [id number] RECD: 03/10/24-[address]: Merlyn Malone COMP: 03/10/24 ENTERED: 03/10/24-[address] [facility] [address]: ORDERED: [facility] w Micros QUERIES: Source: Urine, Clean Catch Test Result Flag Reference Ur Color Yellow Ur Appear Clear PH 5.5 5.0-9.0 Ur Glu >=1000 H Negative mg/dL Urine Blood Trace H Negative Spec Lucas Ur 1.025 1.005-1.025 Urine Protein Trace Neg-Trace mg/dL Urine Ketones Negative Negative mg/dL Ur Nitrite Negative Negative Ur Jarrett Esterase Small (1+) H Negative Ur RBC 0-2 0-2 /HPF Ur WBC 6-10 H 0-5 /HPF Ur Squam Epi 0-2 0-2 /HPF Ur Bact None Seen None Seen Ur Hyaline Marine Service Manager 0-2 0-2 /LPF [facility] [address] [place] [id number] Chuck Wagon Cook: Luis Anna M.D. Specimen Inquiry Name: Marleni Babin Age/Sex: 78/F : 1945 Unit#: [id number] Attend Dr: Merlyn Malone Re03/10/24 Status: DEP REF Location: [facility] Disch: Specimen: [id number] Collected: 03/10/24-1019 Status: COMP Req#: [id number] Received: 03/10/24-1516 Source: [facility] Sp Desc: Clean Cat Subm Dr: Merlyn Malone Ordered: Urine Culture Procedure Result Verified Urine Culture Final 03/11/24-1205 Report Result 10,000 to 50,000 cfu/ml Mixed bacterial misti characteristic of urogenital contamination. Assessment and Plan Assessment & Plan (1) Hospital discharge follow-up: Code(s): Z09 - Encounter for follow-up examination after completed treatment for conditions other than malignant neoplasm (2) Diabetes mellitus type 2 with complications: Comment: There is a note of diabetic retinopathy in her previous medical records, referred for diabetic eye exam. Code(s): E11.8 - Type 2 diabetes mellitus with unspecified complications (3) Insulin dose changed: Code(s): Z79.4 - skilled nursing (current) use of insulin (4) UTI (urinary tract infection): Code(s): N39.0 - Urinary tract infection, site not specified Qualifiers: Urinary tract infection type: acute cystitis Hematuria presence: without hematuria Qualified Code(s): N30.00 - Acute cystitis without hematuria (5) Vaginal yeast infection: Code(s): B37.31 - Acute candidiasis of vulva and vagina (6) Insomnia due to mental condition: Code(s): F51.05 - Insomnia due to other mental disorder Orders: Orders AMB Hemoglobin A1c 03/10/24 E11.8 - Type 2 diabetes mellitus with unspecified complications UA CC w/rflx Micro + Cult 03/10/24 E11.8 - Type 2 diabetes mellitus with unspecified complications, N89.8 - Other specified noninflammatory disorders of vagina Referrals Nurse Navigator Referral E11.8 - Type 2 diabetes mellitus with unspecified complications, Z79.4 - roasterman (current) use of insulin [facility] Referral E11.8 - Type 2 diabetes mellitus with unspecified complications, Z79.4 - skilled nursing (current) use of insulin Medications: New dapagliflozin propanediol (Farxiga) 5 mg PO QAM 90 tabs 0RF insulin lispro (Humalog KwikPen (U-100) Insulin) BG <111 0 units, 111-150 - 0 units, 151-200 4 units, 201-250 8 units, 251-300 10 units, 301-350 12 units, >350 14 units 1 sliding scale dose subcut USEASDIRECTD 15 mL 0RF E11.8 - Type 2 diabetes mellitus with unspecified complications blood-glucose sensor (FreeStyle Harsha 3 Sensor device) As directed 2 ea 11RF E11.8 - Type 2 diabetes mellitus with unspecified complications blood-glucose meter,continuous (FreeStyle Harsha 3 [place]) As directed 1 ea 0RF E11.8 - Type 2 diabetes mellitus with unspecified complications mirtazapine 7.5 mg PO BEDTIME 90 tabs 0RF psyllium husk (Metamucil) mix into at least 8 oz of water or juice before administering\Buy OTC 1 tbsp PO DAILY 660 grams 0RF fluconazole 150 mg PO DAILY 1 day 1 tab 0RF nitrofurantoin monohyd/m-cryst 100 mg must administer with a meal/food 100 mg PO Q12H 3 days 6 caps 0RF Changed From glipizide ER 5 mg PO DAILY 30 tabs 0RF To glipizide ER take 30 minutes before breakfast 5 mg PO DAILY 90 tabs 0RF From insulin glargine (Lantus Solostar U-100 Insulin) 15 units (0.15 mL) subcut DAILY 15 mL 0RF To insulin glargine (Lantus Solostar U-100 Insulin) TAKE DAILY AT 12PM 10 units (0.1 mL) subcut DAILY 15 mL 0RF Refilled pen needle, diabetic Use four times a day or as directed. 100 ea 12RF E11.8 - Type 2 diabetes mellitus with unspecified complications Discontinued insulin lispro (Admelog U-100 Insulin lispro) BG <111 0 units, 111-150 - 0 units, 151-200 4 units, 201-250 8 units, 251-300 10 units, 301-350 12 units, >350 14 units Discontinued Reason: Doctor's Order See Protocol subcut QIDACHS 10 mL 0RF Coding Level of Care Code TCM High MDM <= 14 days Complex EM visit Add On G2211 Diagnoses Hospital discharge follow-up Z09 Diabetes mellitus type 2 with complications E11.8 Insulin dose changed Z79.4 Acute cystitis without hematuria N30.00 Urinary tract infection type: acute cystitis Hematuria presence: without hematuria Vaginal yeast infection B37.31 Insomnia due to mental condition F51.05
[2024-03-10 09:15] VITALS: BP 118/64; PULSE 88; RESP 16; O2SAT 100; BMI 27.5
== END 2024-03-10 10:23 | disposition home or self-care (01) ==
PROVIDERS: PCP Nurse Practitioner Family; Visit Provider Nurse Practitioner Family
DX: E11.8 Type 2 diabetes mellitus with unspecified complications (principal)
CPT/HCPCS: 83036; 99495

== ENCOUNTER 2024-03-10 10:12 | Outpatient (REF) | payer MEDICARE, MEDICAID, SELFPAY ==
[2024-03-10 14:24] LABS: Appearance Urine Clear; Color Urine Yellow; Glucose Urine UA >=1000 mg/dL (Negative); Leukocyte Esterase Urine Small (1+) (Negative); Nitrite Urine Negative (Negative); PH 5.5 (5.0-9.0); Specific Gravity - Urine 1.025 (1.005-1.025); UMIC TRIGGER UACC YES; Urine Blood Trace (Negative); Urine Ketones Negative (Negative); Urine Protein Trace mg/dL (Neg-Trace)
[2024-03-10 14:28] LABS: Bacteria Urine None Seen (None Seen); Hyaline Casts Urine 0-2 /LPF (0-2); RBC Urine 0-2 /HPF (0-2); Squamous Epithelial Cell Urine 0-2 /HPF (0-2); UACC Culture Trigger YES
== END 2024-03-10 10:13 | disposition home or self-care (01) ==
LOC: HO.WFDLDS 10:12
PROVIDERS: Visit Provider Nurse Practitioner Family
DX: N89.8 Other specified noninflammatory disorders of vagina (principal); E11.8 Type 2 diabetes mellitus with unspecified complications; R82.90 Unspecified abnormal findings in urine
CPT/HCPCS: 81001; 87086

== ENCOUNTER 2024-03-16 14:24 | Outpatient (AMB) | payer MEDICARE, MEDICAID, SELFPAY ==
--- NOTE | 2024-03-16 14:26 | MHC.OFFVIS ---
Vital Signs 03/16/24 14:28 Height 5 ft Weight 135 lb 12.876 oz BMI 26.5 BP 110/56 L Blood Pressure Location Lt brachial Position Sitting Pulse 61 Pulse Source Pulse Oximeter Intake Visit Reasons: f/up echo/holter/ labs Revolving Inventory Clerk Required: No Revolving Inventory Clerk Services: Revolving Inventory Clerk Offered & Declined Revolving Inventory Clerk Name: Tracey daughter Accompanied by: Self / Same As Patient Allergies pineapple Allergy (Mild, Uncoded 03/10/24 09:06) rash birds Allergy (Unknown, Uncoded 03/10/24 09:07) Unknown Medication List - Last Reconciled 03/16/24 by Raj Moise MD alcohol swabs 1 pad topical QIDACHS amlodipine 10 mg PO DAILY apixaban (Eliquis) 5 mg PO BID [BIPAP Bipap 20/06 device with medium airfit F20 mask, use QHS. ] blood sugar diagnostic (FreeStyle Lite Strips) Test four times a day or as directed. blood-glucose meter (FreeStyle Lite Meter kit) As Directed blood-glucose meter,continuous (FreeStyle Harsha 3 [place]) As directed blood-glucose sensor (FreeStyle Harsha 3 Sensor device) As directed cholecalciferol (vitamin D3) 1,250 mcg PO DAILY clopidogrel 75 mg PO DAILY dapagliflozin propanediol (Farxiga) 5 mg PO QAM digoxin 125 mcg PO DAILY furosemide 40 mg PO DAILY glipizide ER 5 mg PO DAILY insulin glargine (Lantus Solostar U-100 Insulin) 10 units (0.1 mL) subcut DAILY insulin lispro (Humalog KwikPen (U-100) Insulin) 1 sliding scale dose subcut USEASDIRECTD lancets (FreeStyle Lancets) Test four times a day or as directed. lisinopril 40 mg PO DAILY metoprolol tartrate 50 mg PO DAILY mirtazapine 7.5 mg PO BEDTIME multivitamin (Daily Multi-Vitamin tablet) 1 tab PO DAILY omega-3 fatty acids 500 mg PO DAILY omeprazole 20 mg PO DAILY@0630 pen needle, diabetic Use four times a day or as directed. prednisone 10 mg PO DIRECTED psyllium husk (Metamucil) 1 tbsp PO DAILY rosuvastatin 10 mg PO DAILY HPI Comments Details: Patient returns for follow-up. She was recently seen in consultation regarding question of congestive heart failure as well as atrial fibrillation. She was living in [place] and then moved here few months back. Unclear cardiac history. There is mention of congestive heart failure as well as atrial fibrillation. Unknown coronary status. In prior notes, mentioned that EF is in the 40s but again no further information. She was complaining of some shortness of breath and burning in the chest off and on. Then it seems that she was admitted to [facility] where she had uncontrolled atrial fibrillation. The reason was that she had not taken any medications as she could not get any refills after moving [place]. After the rate was controlled with meds, she is back to her normal self for the most part. No new concerns. [facility] Medical History Persistent atrial fibrillation CAD (coronary artery disease), [place] coronary artery Amputated toe of right foot Family History Mother HTN (hypertension) Diabetes Cardiovascular disease Skin cancer Father Substance abuse Alcoholism Social History Household Members: Family Household Members Other:: daughter Housing: Apartment Do you presently have visiting nurse or other home services: No Alcohol intake: never Comment: pt refused all alarms Patient Tobacco Use Status: Never used Tobacco e-Cigarette/Vaping Use: Never Used Second Hand Smoke Exposure: No service: No Current occupational status: retired Current occupational exposures/hazards: No Cognitive needs: Yes Hearing needs: Yes Vision needs: No Review of Systems Const Denies chills, Denies fatigue, Denies fever(s), Denies weight gain and Denies weight loss ENT Denies dizziness Card Denies chest pain, Denies leg edema, Denies lightheadedness, Denies palpitations, Denies dyspnea on exertion, Denies orthopnea and Denies other Resp Denies cough and Denies dyspnea on exertion GI Denies hematochezia and Denies change in stool character Musc Denies abnormal gait, Denies muscle weakness, Denies numbness, Denies radiating pain into limb and Denies tingling Neuro Denies abnormal gait, Denies dizziness, Denies numbness and Denies tingling Endo Denies fatigue and Denies palpitations Physical Exam Vital Signs: Last Vital Signs Pulse 61 03/16/24 14:28 BP 110/56 L 03/16/24 14:28 BMI result Body Mass Index 26.5 Const General: comfortable and no acute distress Orientation/consciousness: patient oriented x3 HEENT Other: Unremarkable Head: Yes normal to inspection Neck Neck: Yes normal visual inspection Chest Chest palpation & inspection: normal inspection of the chest Resp Auscultation: clear to auscultation bilaterally Cardio Palpation: normal PMI Heart sounds: S1 normal heart sound present, S2 normal heart sound present, no gallops, no murmurs and no rubs GI Palpation (GI): Soft to palpation Back/Spine/Pelvis Other: unremarkable Skin General skin exam: no rashes or lesions noted Neuro General: patient oriented x3 Extrem General: Yes normal to inspection Psych Mental Status: mental status grossly normal Assessment & Plan Assessment & Plan (1) CHF (congestive heart failure): Code(s): I50.9 - Heart failure, unspecified Category: Medical Qualifiers: Heart failure type: systolic Heart failure chronicity: chronic Qualified Code(s): I50.22 - Chronic systolic (congestive) heart failure (2) Persistent atrial fibrillation: Code(s): I48.19 - Other persistent atrial fibrillation Category: Medical (3) Atherosclerotic cardiovascular disease: Code(s): I25.10 - Atherosclerotic heart disease of [place] coronary artery without angina pectoris Category: Medical Plan EKG in August from [facility] shows atrial fibrillation rapid rate at 144/Min. In the recent Holter, underlying rhythm is atrial fibrillation with an average rate of 68/Min and thought to be overall well controlled. Echocardiogram with LVEF of 63%. Moderate mitral annular calcification. In the chest CT scan, description of moderate coronary artery calcification. Enlarged pulmonary arteries thought to be from pulmonary arterial hypertension. Emphysema. With regard to the atrial fibrillation, continue beta-blockers. In the future, probably switch to sustained release metoprolol. Continue digoxin. Continue Eliquis. She could have had some diastolic heart failure related to atrial fibrillation and hence can continue diuretics. With regard to prior complaints of chest burning and also coronary calcification findings on the CT scan, obtain myocardial perfusion imaging study. Highly unlikely to exercise and hence do pharmacological stress with Lexiscan. Discussed with daughter who came for appointment. Orders: Orders CA lexiscan stress w natalie Today I20.9 - Angina pectoris, unspecified NM cardiolite stress test Today R07.2 - Precordial pain Coding Level of Care Code Est Pt Level 4 (52821) Diagnoses Chronic systolic congestive heart failure I50.22 Heart failure type: systolic Heart failure chronicity: chronic Persistent atrial fibrillation I48.19 Atherosclerotic cardiovascular disease I25.10
[2024-03-16 14:28] VITALS: BP 110/56; PULSE 61; BMI 26.5
== END 2024-03-16 14:45 | disposition home or self-care (01) ==
PROVIDERS: PCP Nurse Practitioner Family; Visit Provider Internal Medicine
DX: I50.22 Chronic systolic (congestive) heart failure (principal); I48.19 Other persistent atrial fibrillation; I25.10 Atherosclerotic heart disease of native coronary artery without angina pectoris
CPT/HCPCS: 99214

== ENCOUNTER → 2024-03-16 14:24 | Outpatient (BNVA) | payer MEDICARE, MEDICAID, SELFPAY | PROVIDERS: PCP Nurse Practitioner Family; Visit Provider Internal Medicine | DX: I11.0 Hypertensive heart disease with heart failure (principal); I50.22 Chronic systolic (congestive) heart failure; I48.19 Other persistent atrial fibrillation; I25.10 Atherosclerotic heart disease of native coronary artery without angina pectoris | CPT/HCPCS: 99212 ==

== ENCOUNTER 2024-03-28 13:08 | Outpatient (AMB) | payer MEDICARE, MEDICAID, SELFPAY ==
[2024-03-28 13:10] VITALS: BP 120/78; PULSE 58; O2SAT 94; BMI 26.8
--- NOTE | 2024-03-28 13:10 | MHC.OFFVIS ---
Vital Signs 03/28/24 13:10 Height 5 ft Weight 137 lb 2 oz BMI 26.8 BP 120/78 Blood Pressure Location Rt brachial Position Sitting Pulse 58 Pulse Source Pulse Oximeter Pulse Oximetry (%) 94 Oxygen Delivery Method Room Air Intake Visit Reasons: Obstructive sleep apnea Allergies pineapple Allergy (Mild, Uncoded 03/28/24 13:14) rash birds Allergy (Unknown, Uncoded 03/28/24 13:14) Unknown HPI HPI Obstructive sleep apnea: Details: Marleni is a pleasant 78 year old female, never smoker, with underlying asthma, pulmonary nodules, interstitial lung disease, CAD, atrial fibrillation maintained on on eliquis, DMII, CHF on lasix 40 mg, CKDIII and GERD. There was question of ILD and patient trialed on prednisone. Unfortunately, she denied any symptomatic changes and there was minimal improvement on chest CT. Today she presents to review compliance with BiPAP therapy. At the last visit, an order was sent to [employer] for an O2 connector to connect to BiPAP, however patient denies contact from [employer]. She currently denies any respiratory symptoms. She does have an upcoming consultation [facility] and her PFT is scheduled Wednesday at [facility]. [facility] Medical History Persistent atrial fibrillation CAD (coronary artery disease), [place] coronary artery Amputated toe of right foot Family History Mother HTN (hypertension) Diabetes Cardiovascular disease Skin cancer Father Substance abuse Alcoholism Social History Household Members: Family Household Members Other:: daughter Housing: Apartment Do you presently have visiting nurse or other home services: No Alcohol intake: never Comment: pt refused all alarms Patient Tobacco Use Status: Never used Tobacco e-Cigarette/Vaping Use: Never Used Second Hand Smoke Exposure: No service: No Current occupational status: retired Current occupational exposures/hazards: No Cognitive needs: Yes Hearing needs: Yes Vision needs: No Review of Systems Const Denies chills, Denies excessive sweating, Denies fever(s), Denies headache(s) and Denies night sweats Eyes Denies dry eyes, Denies irritation and Denies itchy eyes ENT Reports Normal hearing present, Denies headache(s), Denies nasal congestion, Denies nasal discharge, Denies post nasal drip and Denies sore throat Card Denies chest pain, Denies chest pain at rest, Denies chest pain with activity, Denies claudication, Denies leg edema, Denies orthopnea and Denies paroxysmal nocturnal dyspnea Resp Denies chest congestion, Denies excessive phlegm production, Denies pain on inspiration, Denies pain with cough and Denies stridor Musc Denies myalgias Neuro Reports Normal hearing present and Denies headache(s) Endo Denies excessive sweating Benji/Lymph Denies lymphadenopathy Aller/Immun Denies itchy eyes and Denies seasonal rhinorrhea Physical Exam Vital Signs: Last Vital Signs Pulse 58 03/28/24 13:10 BP 120/78 03/28/24 13:10 Pulse Ox 94 03/28/24 13:10 Oxygen Delivery Method Room Air 03/28/24 13:10 BMI result Body Mass Index 26.8 Const General: cooperative, healthy appearing, comfortable, no acute distress, well developed and alert Orientation/consciousness: patient oriented x3 Limitations: ambulation with cane HEENT Head: Yes normal to inspection, Yes normocephalic and Yes atraumatic Ears: hearing grossly normal bilaterally and external ears normal Eyes General: appearance normal, both eyes and all related structures Eyelids: Yes eyelids normal Sclerae: sclerae normal EOM: EOMs intact bilaterally Neck Neck: Yes normal visual inspection and Yes no lymphadenopathy Lymphatic: no lymphadenopathy noted Chest Chest palpation & inspection: normal inspection of the chest Resp Other: faint bibasilar inspiratory crackles Effort & Inspection: normal respiratory effort, able to speak in complete sentences, no audible wheezes, no cough, no stridor, not tachypneic, no tripod positioning and no use of accessory muscles Cardio Jugular venous distension: no JVD Rate: regular rate Rhythm: abnormal rhythm (afib) Skin Other: warm, dry General skin exam: no rashes or lesions noted Neuro General: patient oriented x3 Cranial nerves: Yes Normal hearing present Cognition (Neuro): normal cognition Gait exam (Neuro): Normal gait present Extrem General: Yes normal to inspection, Yes capillary refill normal, Yes no clubbing, cyanosis or edema and Yes no pedal edema Psych Appearance: grossly normal and well kempt Speech and movement: Normal speech and movement present and Clear speech present Affect: normal affect Attitude: cooperative Thought process: Normal thought process present Thought content: Normal thought content present Insight: Good insight present (Psych) Judgement: Good judgement present (Psych) Assessment & Plan Assessment & Plan (1) ILD (interstitial lung disease): Code(s): J84.9 - Interstitial pulmonary disease, unspecified Category: Medical (2) Environmental allergies: Code(s): Z91.09 - Other allergy status, other than to drugs and biological substances Category: Medical (3) Lung nodules: Code(s): R91.8 - Other nonspecific abnormal finding of lung field Category: Medical (4) Dyspnea: Code(s): R06.00 - Dyspnea, unspecified Category: Medical (5) CHF (congestive heart failure): Code(s): I50.9 - Heart failure, unspecified Category: Medical Qualifiers: Heart failure chronicity: chronic Heart failure type: systolic Qualified Code(s): I50.22 - Chronic systolic (congestive) heart failure (6) Nocturnal hypoxemia: Code(s): G47.34 - Idiopathic sleep related nonobstructive alveolar hypoventilation Category: Medical (7) LAKESHA positive: Code(s): R76.8 - Other specified abnormal immunological findings in serum Category: Medical Plan Prior chest CT which revealed mild increase in interstitial markings with minimal change in symptoms while on prednisone. Prednisone was tapered and today patient continues to report dyspnea on exertion. We had previously discussed there is likely an underlying CTD contributing to symptoms and was referred to rheumatology. She has an upcoming appointment. Will continue to monitor with chest CT until she is evaluated. Will enter chest ct to be performed in May. Patient reports some issues with BiPAP therapy affecting compliance including the mask. Advised to reach out to [employer] to trial a different mask. Patient requires 4L of supplemental oxygen with BiPAP. Previously sent order for O2 adapter to [employer] however patient did not receive. Will reach out to ensure order was received and patient received adapter. Once using frequently will send for overnight oximetry to assess for resolution of nocturnal hypoxemia. All questions were answered and patient is in agreement of plan. Will follow up to review results or sooner if needed. Coding Level of Care Code Est Pt Level 4 (10618) Diagnoses ILD (interstitial lung disease) J84.9 Environmental allergies Z91.09 Lung nodules R91.8 Dyspnea R06.00 Chronic systolic congestive heart failure I50.22 Heart failure chronicity: chronic Heart failure type: systolic Nocturnal hypoxemia G47.34 LAKESHA positive R76.8
== END 2024-03-28 13:37 | disposition home or self-care (01) ==
PROVIDERS: PCP Nurse Practitioner Family; Visit Provider Nurse Practitioner Family
DX: J84.9 Interstitial pulmonary disease, unspecified (principal); Z91.09 Other allergy status, other than to drugs and biological substances; R91.8 Other nonspecific abnormal finding of lung field; R06.00 Dyspnea, unspecified; I50.22 Chronic systolic (congestive) heart failure; G47.34 Idiopathic sleep related nonobstructive alveolar hypoventilation; R76.8 Other specified abnormal immunological findings in serum
CPT/HCPCS: 99214

== ENCOUNTER → 2024-03-28 13:08 | Outpatient (BNVA) | payer MEDICARE, MEDICAID, SELFPAY | PROVIDERS: PCP Nurse Practitioner Family; Visit Provider Nurse Practitioner Family | DX: G47.33 Obstructive sleep apnea (adult) (pediatric) (principal); J84.9 Interstitial pulmonary disease, unspecified; R91.8 Other nonspecific abnormal finding of lung field; R06.00 Dyspnea, unspecified; I50.22 Chronic systolic (congestive) heart failure; G47.34 Idiopathic sleep related nonobstructive alveolar hypoventilation; R76.8 Other specified abnormal immunological findings in serum; Z91.09 Other allergy status, other than to drugs and biological substances | CPT/HCPCS: 99212 ==

== ENCOUNTER 2024-04-17 12:49 | Outpatient (AMB) | payer MEDICARE, MEDICAID, SELFPAY ==
--- NOTE | 2024-04-17 12:54 | A.OFFPC_ITS ---
Vital Signs 04/17/24 13:00 Height 5 ft Weight 141 lb 8 oz BMI 27.6 BP 102/66 Blood Pressure Location Rt brachial Position Sitting Respiration 13 Pulse 57 Pulse Source Pulse Oximeter Pulse Oximetry (%) 95 Intake Visit Reasons: 2 week 30 min close interim f/u Intake Note: routine follow up Allergies pineapple Allergy (Mild, Uncoded 04/17/24 13:09) rash birds Allergy (Unknown, Uncoded 04/17/24 13:09) Unknown Medication List - Last Reconciled 04/17/24 by Merlyn Malone, ROLLER TURNER- alcohol swabs 1 pad topical QIDACHS amlodipine 10 mg PO DAILY apixaban (Eliquis) 5 mg PO BID [BIPAP Bipap 20/06 device with medium airfit F20 mask, use QHS. ] blood sugar diagnostic (FreeStyle Lite Strips) Test four times a day or as directed. blood-glucose meter (FreeStyle Lite Meter kit) As Directed blood-glucose meter,continuous (FreeStyle Harsha 3 [place]) As directed blood-glucose sensor (FreeStyle Harsha 3 Sensor device) As directed cholecalciferol (vitamin D3) 1,250 mcg PO DAILY clopidogrel 75 mg PO DAILY dapagliflozin propanediol (Farxiga) 5 mg PO QAM digoxin 125 mcg PO DAILY furosemide 40 mg PO DAILY glipizide ER 5 mg PO DAILY insulin glargine (Lantus Solostar U-100 Insulin) 10 units (0.1 mL) subcut DAILY insulin lispro (Humalog KwikPen (U-100) Insulin) 1 sliding scale dose subcut USEASDIRECTD lancets (FreeStyle Lancets) Test four times a day or as directed. lisinopril 40 mg PO DAILY metoprolol tartrate 50 mg PO DAILY mirtazapine 7.5 mg PO BEDTIME multivitamin (Daily Multi-Vitamin tablet) 1 tab PO DAILY nystatin 1 appl topical BID 10 days omega-3 fatty acids 500 mg PO DAILY omeprazole 20 mg PO DAILY@0630 pen needle, diabetic Use four times a day or as directed. 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 Flu 04/17/24 Specialists: [facility] Here today with her daughter for close interim follow up. Since last office visit things have been going pretty good. Blood sugars have been better controlled. No more hypoglycemia. In the morning usually between 90 and 160, in the afternoons can be around 200. Does require insulin sliding scales a maximum of 2 times per day a few times per week. Continues to use Lantus 10 units at lunchtime Was not able to get the CGM. A message was sent to the nurse navigation team. After the office visit, insurance requires this to be filled out a [employer] medical supply company. The prescriptions will be printed and faxed to a [employer] medical supply company that has local with the patient. She also did not receive the glucometer. I will prednisone fax it to a [employer] medical supply company as well. Patient complaining of mild swelling in her lower extremities bilateral Her rash is better with the use of topical nystatin. Denies any urinary complaints. In regards to mood, daughter reports that it is better after starting the mirtazapine. Unfortunately it did not help with any of her insomnia. She was taking every day. She was off of the prednisone now. She was using her CPAP however she reports that she has swelling of the left side of her face while using the mask. Complains of pain on the right side of her back that has been present for months, comes and goes, apply topical analgesics with positive relief. Denies any red flag symptoms associated with back pain. Did have a mechanical fall however reports that this occurred after the onset of her back pain. All the pain in this area was completely resolved while she was taking her prednisone, this is being prescribed for pulmonary reason Remains active with visiting nurse for shelter and physical therapy Flu shot today Exam: awake alert accompanied by dtr, pleasant, cooperative PAF, 1/6 systolic murmur LS dim throughout neg suprapubic tenderness, no cvat bilat BLE nonpalp pedal pulses, skin w chronic hemosiderin. Right foot s/p great and 2nd toe amps with well healed surgical incision. trace edema BLE Bilat hands w/ dupytrens contractures, Left ring finger mostly effected Right lower back negative CVAT. unable to reproduce the pain. Skin clear Plan Decrease amlodipine from 10mg to 5mg to see if this helps the edema in BLE Increase mirtazapine from 7.5mg to 15mg po QD to help w/ mood and sleep Flu today Discussed increasing lantus from 10 units to 12 units, however would like to keep the same w/ goal of getting off insulin. Cont w/ [facility], will be starting PT. Uses walker and cane. Start APAP 500mg QD to help w/ pain Refill on all medications sent, prescription sent to [facility] advised to fu with cpap supply co for new mask RTO Dec as dtr having surgery in Nov Labs 1 week before This note is constructed using voice recognition software. While every effort has been made to ensure accuracy in [employer] regist[employer], still errors may have been included Sometimes, these errors may affect the content or meaning of the given sentence . Total time spent caring for the patient today was 62 minutes. This includes time spent before the visit reviewing the chart, time spent during the visit, and time spent after the visit on documentation PENDING SALE TO [facility] Medical History Persistent atrial fibrillation CAD (coronary artery disease), [place] coronary artery Amputated toe of right foot Family History Mother HTN (hypertension) Diabetes Cardiovascular disease Skin cancer Father Substance abuse Alcoholism Social History Household Members: Family Household Members Other:: daughter Housing: Apartment Do you presently have visiting nurse or other home services: No Alcohol intake: never Comment: pt refused all alarms Patient Tobacco Use Status: Never used Tobacco e-Cigarette/Vaping Use: Never Used Second Hand Smoke Exposure: No service: No Current occupational status: retired Current occupational exposures/hazards: No Cognitive needs: Yes Hearing needs: Yes Vision needs: No Questionnaire Thrive Questionnaire Date Thrive assessed: 02/28/24 NINO-7 AMB Questionnaire NINO-7 Date NINO - 7 assessed: 10/15/23 Source: Developed by Drs. Dat Mendes, Porsche Bah, Avila Matson and colleagues, with an educational frank from [employer]. Physical exam (Primary Care) Vital Signs: Last Vital Signs Pulse 57 04/17/24 13:00 Resp 13 04/17/24 13:00 BP 102/66 04/17/24 13:00 Pulse Ox 95 04/17/24 13:00 BMI result Body Mass Index 27.6 Tobacco/Smoking Status: Tobacco use Status Tobacco use date assessed 10/15/23 04/17/24 12:54 Patient Tobacco Use Status Never used Tobacco 04/17/24 12:54 e-Cigarette/Vaping Use Never Used 04/17/24 12:54 Thrive Assessment: Date of Thrive Assessment Date Thrive assessed 02/28/24 04/17/24 12:54 Office Procedures Flu Questionnaire Does the patient have a severe egg allergy?: No Does the patient have severe life threatening allergies?: No Does the patient have a fever or illness today?: No Has the patient ever had Guillain-Iola Syndrome?: No Has the patient ever had any past reaction to a flu shot?: No Immunizations Fluarix Triv [id number] (PF) 45 mcg (15 mcg x 3)/0.5 mL IM syringe Performing Provider: BEN TobiasPCat Performing Location: [facility] Administered by: Sarah Irvin RN on 04/17/24 13:17 Dose Route Admin Location Dispensed Lot Number Expiration Date NDC Stitcher Around 0.5 mL IM Right Deltoid 0.5 mL [id number] 01/01/25 30686-896-81 ice VIS Given Date VIS Provided VIS Publication Date 04/17/24 Single Vaccine 21 Eligibility Eligibility Date Funding Source Not [facility] Eligible 04/17/24 Private Coding Level of Care Code Est Pt Level 5 (20612) Complex EM visit Add On G2211 Diagnoses Diabetes mellitus type 2 with complications E11.8 Chronic systolic congestive heart failure I50.22 Heart failure type: systolic Heart failure chronicity: chronic Primary osteoarthritis involving multiple joints M15.0 Osteoarthritis location: multiple joints Osteoarthritis type: primary 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 Code(s): E11.8 - Type 2 diabetes mellitus with unspecified complications Category: Medical Plan: . (2) CHF (congestive heart failure): Code(s): I50.9 - Heart failure, unspecified Category: Medical Qualifiers: Heart failure type: systolic Heart failure chronicity: chronic Qualified Code(s): I50.22 - Chronic systolic (congestive) heart failure Plan: . (3) Osteoarthritis: Code(s): M19.90 - Unspecified osteoarthritis, unspecified site Category: Medical Qualifiers: Osteoarthritis location: multiple joints Osteoarthritis type: primary Qualified Code(s): M15.0 - Primary generalized (osteo)arthritis Plan: . (4) Insomnia due to mental condition: Code(s): F51.05 - Insomnia due to other mental disorder Category: Medical Plan: . Orders: Orders Influenza [id number] Immunization Today Z23 - Encounter for immunization Medications: New mirtazapine 15 mg PO BEDTIME 90 tabs 0RF acetaminophen 500 mg PO DAILY 90 caps 2RF fever amlodipine (Norvasc) 5 mg PO DAILY 90 tabs 0RF cholecalciferol (vitamin D3) 1,250 mcg PO DAILY 90 caps 2RF omeprazole 20 mg PO DAILY@0630 90 caps 2RF Refilled blood-glucose meter,continuous (FreeStyle Harsha 3 [place]) As directed 1 ea 0RF E11.8 - Type 2 diabetes mellitus with unspecified complications blood sugar diagnostic (FreeStyle Lite Strips) Test four times a day or as directed. 100 ea 0RF E11.8 - Type 2 diabetes mellitus with unspecified complications blood-glucose meter (FreeStyle Lite Meter kit) As Directed 1 ea 0RF E11.8 - Type 2 diabetes mellitus with unspecified complications blood-glucose sensor (FreeStyle Harsha 3 Sensor device) As directed 2 ea 11RF E11.8 - Type 2 diabetes mellitus with unspecified complications lancets (FreeStyle Lancets) Test four times a day or as directed. 100 ea 0RF E11.8 - Type 2 diabetes mellitus with unspecified complications furosemide 40 mg PO DAILY 90 tabs 0RF glipizide ER take 30 minutes before breakfast 5 mg PO DAILY 90 tabs 0RF lisinopril 40 mg PO DAILY 90 tabs 0RF blood-glucose sensor (FreeStyle Harsha 3 Sensor device) As directed 2 ea 11RF E11.8 - Type 2 diabetes mellitus with unspecified complications blood sugar diagnostic (FreeStyle Lite Strips) Test four times a day or as directed. 100 ea 0RF E11.8 - Type 2 diabetes mellitus with unspecified complications blood-glucose meter,continuous (FreeStyle Harsha 3 [place]) As directed 1 ea 0RF E11.8 - Type 2 diabetes mellitus with unspecified complications apixaban (Eliquis) 5 mg PO BID 180 tabs 0RF clopidogrel 75 mg PO DAILY 90 tabs 0RF dapagliflozin propanediol (Farxiga) 5 mg PO QAM 90 tabs 0RF metoprolol tartrate 50 mg PO DAILY 90 tabs 0RF Discontinued mirtazapine Discontinued Reason: Doctor's Order 7.5 mg PO BEDTIME 90 tabs 0RF
[2024-04-17 13:00] VITALS: BP 102/66; PULSE 57; RESP 13; O2SAT 95; BMI 27.6
== END 2024-04-17 13:47 | disposition home or self-care (01) ==
PROVIDERS: PCP Nurse Practitioner Family; Visit Provider Nurse Practitioner Family
DX: E11.8 Type 2 diabetes mellitus with unspecified complications (principal); I50.22 Chronic systolic (congestive) heart failure; M15.0 Primary generalized (osteo)arthritis; F51.05 Insomnia due to other mental disorder; Z23 Encounter for immunization

== ENCOUNTER → 2024-04-17 12:49 | Outpatient (BNVA) | payer MEDICARE, MEDICAID, SELFPAY | PROVIDERS: PCP Nurse Practitioner Family; Visit Provider Nurse Practitioner Family | DX: Z23 Encounter for immunization (principal); E11.8 Type 2 diabetes mellitus with unspecified complications; I50.22 Chronic systolic (congestive) heart failure; M15.0 Primary generalized (osteo)arthritis; F51.05 Insomnia due to other mental disorder | CPT/HCPCS: 90471; 90656; 99212 ==

== ENCOUNTER 2024-05-22 08:53 | Outpatient (REF) | payer MEDICARE, MEDICAID, SELFPAY | END 2024-05-22 08:54 | disposition home or self-care (01) | LOC: HO.CT 08:53 | PROVIDERS: PCP Nurse Practitioner Family; Visit Provider Nurse Practitioner Family | DX: J84.9 Interstitial pulmonary disease, unspecified (principal) | CPT/HCPCS: 71250 ==

== ENCOUNTER → 2024-05-22 08:54 | Outpatient (BNV) | payer MEDICARE, MEDICAID, SELFPAY | PROVIDERS: PCP Nurse Practitioner Family; Visit Provider Radiology Diagnostic Radiology | DX: J84.9 Interstitial pulmonary disease, unspecified (principal) | CPT/HCPCS: 71250 ==

== ENCOUNTER 2024-06-13 12:19 | Outpatient (AMB) | payer MEDICARE, MEDICAID, SELFPAY ==
--- NOTE | 2024-06-13 12:21 | MHC.PC.OV ---
Vital Signs 06/13/24 12:26 Height 5 ft Weight 140 lb BMI 27.3 BP 124/68 Blood Pressure Location Lt brachial Position Sitting Respiration 13 Pulse 89 Pulse Source Pulse Oximeter Pulse Oximetry (%) 90 L Oxygen Delivery Method Room Air Intake Visit Reasons: 30 min complex fu June routine fu Intake Note: routine follow up [employer] Required: No Allergies pineapple Allergy (Mild, Uncoded 04/17/24 13:09) rash birds Allergy (Unknown, Uncoded 04/17/24 13:09) Unknown Tobacco use date assessed: 10/15/23 Dental Screening Dental Screen Date: 10/15/23 HPI HPI Comments History of Present Illness Details 78-year-old, Burmese speaking female with 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 Flu 04/17/24 Tdap today Specialists: [facility] The patient is a 78-year-old female presenting with diabetes management, ongoing neuropathic symptoms . Her Type 2 Diabetes Mellitus has resulted in decreased blood sugar episodes, prompting adjustments in insulin dosage. Her Hemoglobin A1c is currently 6.6%, showing stability after cessation of prednisone, which previously escalated blood sugar levels. She has experienced consistent peripheral neuropathy characterized by numbness in fingers, which remains unresolved. The patient is on Glipizide and Lantus with meal-time insulin omission based on SS. Current antihypertensive adjustments have reduced prior medication-induced edema significantly. She reports longstanding sleep disturbances influenced by frequent nocturnal urination, despite CPAP use for obstructive sleep apnea. Unsure how to use new attachment. Her mood stability and depressive symptoms are under surveillance with Mirtazapine, although nighttime restlessness persists. Urinary symptoms like itchiness have improved with management. Was not able to get CGM. Unsure why. Declined @ this time. Exam: awake alert accompanied by dtr, pleasant, cooperative PAF, 1/6 systolic murmur LS dim throughout BLE nonpalp pedal pulses, skin w chronic hemosiderin. Right foot s/p great and 2nd toe amps with well healed surgical incision. no edema BLE Bilat hands w/ dupytrens contractures, Left ring finger mostly effected Plan - Diabetes Mellitus Type 2: Decrease Lantus from 10 units to 5 units daily while adding Metformin to optimize glycemic control. Continue Glipizide & Farxiga at current doses. Goal of getting her off insulin. Declines CGM. - Peripheral Neuropathy: No change in treatment; ongoing monitoring. - Hypertension: Maintain current oral antihypertensive regimen. - Sleep Disturbance: Continue current medication; - Edema: Continue with dosage adjustment of antihypertensives as this has resolved the issue . - Depression: Continue current Mirtazapine dosage. - Obstructive Sleep Apnea: Attempt to resolve CPAP fitting issues; consider respiratory therapy input. Tdap today. - Labs today to include UA as she is on Farxiga and has a hx of UTI RTO 4 months, repeat labs 1 week before, routine fu, sooner PRN Patient was informed and verbally consented to the use of an ambient scribe for clinic note documentation during this visit. Total time spent caring for the patient today was 45 minutes. This includes time spent before the visit reviewing the chart, time spent during the visit, and time spent after the visit on documentation [facility] Medical History Persistent atrial fibrillation CAD (coronary artery disease), nikolski coronary artery Amputated toe of right foot Family History Mother HTN (hypertension) Diabetes Cardiovascular disease Skin cancer Father Substance abuse Alcoholism Social History Household Members: Family Household Members Other:: daughter Housing: Apartment Do you presently have visiting nurse or other home services: No Alcohol intake: never Comment: pt refused all alarms Patient Tobacco Use Status: Never used Tobacco e-Cigarette/Vaping Use: Never Used Second Hand Smoke Exposure: No service: No Current occupational status: retired Current occupational exposures/hazards: No Cognitive needs: Yes Hearing needs: Yes Vision needs: No Questionnaire PHQ-9 Over the last 2 weeks, how often have you been bothered by any of the following problems? 1. Little interest or pleasure in doing things: not at all 2. Feeling down, depressed, or hopeless: not at all 3. Trouble falling or staying asleep, or sleeping too much: nearly every day 4. Feeling tired or having little energy: more than half the days 5. Poor appetite or overeating: not at all 6. Feeling bad about yourself - or that you are a failure or have let yourself or your family down: not at all 7. Trouble concentrating on things, such as reading the newspaper or watching television: several days 8. Moving or speaking so slowly that other people could have noticed. Or the opposite - being so fidgety or restless that you have been moving around a lot more than usual: several days 9. Thoughts that you would be better off or of hurting yourself in some way: not at all Total score: 7 37845 - PHQ-9 Billing: Yes Source: Developed by Drs. Dat Mendes, Porsche Bah, Avila Matson and colleagues, with an educational frank from [employer]. Thrive Questionnaire Date Thrive assessed: 06/13/24 I am a: Patient What is your living situation today?: I have a steady place to live Within the past 12 months, did the food you bought not last and you didn't have the money to get more?: Never true Within the past 12 months, did you worry whether your food would run out before you got money to buy more?: Never true Do you have trouble paying for medicines?: No Do you have trouble getting transportation to medical appointments?: No Do you have trouble paying your heating and electricity bill?: No Do you have trouble taking care of your child, family member or friend?: No Do you have trouble with day-to-day activities such as bathing, preparing meals, shopping, managing finances, etc.?: No Are you currently unemployed and looking for a job?: No Are you interested in more education?: No Please select the resources that you would like help with: None Currently or been in a relationship where the following occur: No concerns reported THRIVE Score: 0 AUDIT C Alcohol Use Questionnaire (AUDIT-C) 1. How often do you have a drink containing alcohol?: Never Total Score: 0 NINO-7 AMB Questionnaire NINO-7 Date NINO - 7 assessed: 06/13/24 Feeling nervous, anxious, or on edge: 0 = Not at all Not being able to stop or control worryin = Not at all Worrying too much about different things: 0 = Not at all Trouble relaxin = Not at all Being so restless that it is hard to sit still: 0 = Not at all Becoming easily annoyed or irritable: 0 = Not at all Feeling afraid as if something awful might happen: 0 = Not at all Total NINO-7 score (0-4 normal; 5-9 mild; 10-14 moderate; 15-21 severe): 0 Source: Developed by Drs. Dat Mendes, Porsche Bah, Avila Matson and colleagues, with an educational frank from [employer]. NINO-7 Assessment Billing NINO-7 Assessment Tool: NINO-7 Assessment 79742 Physical exam (Primary Care) Vital Signs: Last Vital Signs Pulse 89 06/13/24 12:26 Resp 13 06/13/24 12:26 BP 124/68 06/13/24 12:26 Pulse Ox 90 L 06/13/24 12:26 Oxygen Delivery Method Room Air 06/13/24 12:26 BMI result Body Mass Index 27.3 Tobacco/Smoking Status: Tobacco use Status Tobacco use date assessed 10/15/23 06/13/24 12:23 Patient Tobacco Use Status Never used Tobacco 06/13/24 12:23 e-Cigarette/Vaping Use Never Used 06/13/24 12:23 PHQ-9: PHQ-9 Score PHQ-9: Total score 7 06/13/24 12:36 Thrive Assessment: Date of Thrive Assessment Date Thrive assessed 06/13/24 06/13/24 12:23 Currently or been in a relationship where the following occur: No concerns reported Results AMB Hemoglobin A1c AMB Hemoglobin A1c 6.6 % Last Edit by Froylan El MA on 06/13/24 12:39 Immunizations Boostrix Tdap 2.5 Lf unit-8 mcg-5 Lf/0.5 mL intramuscular syringe Performing Provider: KIKO Tobias Performing Location: [facility] [place] [facility] Administered by: Sarah Irvin RN on 06/13/24 13:08 Dose Route Admin Location Dispensed Lot Number Expiration Date NDC Developmental Education Instructor 0.5 mL IM Right Deltoid 0.5 mL [id number] 07/26/26 [id number] [employer] VIS Given Date VIS Provided VIS Publication Date 06/13/24 Single Vaccine 21 Eligibility Eligibility Date Funding Source Not VFC Eligible 06/13/24 Private Results Reviewed Results Reviewed: Laboratory Last Values Hgb A1c (Clinic) 6.6 % (4.0-6.0) H 06/13/24 12:36 Coding Level of Care Code Est Pt Level 5 (41050) Complex EM visit Add On G2211 Diagnoses Diabetes mellitus type 2 with complications E11.8 Insulin dose changed Z79.4 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 transplanted heart: nikolski heart Mixed hyperlipidemia E78.2 Hyperlipidemia type: mixed hyperlipidemia Stage 3a chronic kidney disease N18.31 Chronic kidney disease stage 3 subtype: stage 3a (GFR 45-59) Diabetic peripheral neuropathy E11.42 Need for Tdap vaccination Z23 Additional Codes NINO-7 Assessment Billing - NINO-7 Assessment Tool: NINO-7 Assessment 54235 ([id number]) PHQ-9 - 25391 - PHQ-9 Billing: Yes ([id number]) Assessment & Plan Assessment & Plan (1) Diabetes mellitus type 2 with complications: Code(s): E11.8 - Type 2 diabetes mellitus with unspecified complications Category: Medical (2) Insulin dose changed: Code(s): Z79.4 - 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 daily, metoprolol, amlodipine. Last episode of angina occurring less than 12 months ago. Her med list does not include a statin. We will follow up with the daughter next week to see why she has not on a statin. Refer to Cardiology for further evaluation and treatment Code(s): I25.119 - Atherosclerotic heart disease of nikolski coronary artery with unspecified angina pectoris Category: Medical Qualifiers: Coronary Disease-Associated Artery/Lesion type: nikolski artery Resighini vs. transplanted heart: nikolski heart Qualified Code(s): I25.119 - Atherosclerotic heart disease of nikolski coronary artery with unspecified angina pectoris (5) Hyperlipidemia: Comment: LDL goal will be less than 70 10/15/23 LDL 134 Start Rosuvastatin 10mg po QD. Repeat labs in 3 months, follow w/ Cards Code(s): E78.5 - Hyperlipidemia, unspecified Category: Medical Qualifiers: Hyperlipidemia type: mixed hyperlipidemia Qualified Code(s): E78.2 - Mixed hyperlipidemia (6) CKD (chronic kidney disease) stage 3, GFR 30-59 ml/min: Comment: 10/2023 eGFR 58 Labs from October 16 2023 show normal electrolytes BUN 17, creatinine 0.9,, random glucose 195 phosphorus, magnesium, normal calcium, vitamin-D pending, elevated parathyroid hormone 97.8, elevated urine microalbumin creatinine ratio 83.8 Code(s): N18.30 - Chronic kidney disease, stage 3 unspecified Category: Medical Qualifiers: Chronic kidney disease stage 3 subtype: stage 3a (GFR 45-59) Qualified Code(s): N18.31 - Chronic kidney disease, stage 3a (7) Diabetic peripheral neuropathy: Code(s): E11.42 - Type 2 diabetes mellitus with diabetic polyneuropathy Category: Medical (8) Need for Tdap vaccination: Code(s): Z23 - Encounter for immunization Plan . Orders: Orders Comprehensive Met. Panel Today E11.8 - Type 2 diabetes mellitus with unspecified complications, E78.2 - Mixed hyperlipidemia, I25.119 - Atherosclerotic heart disease of nikolski coronary artery with unspecified angina pectoris, N18.31 - Chronic kidney disease, stage 3a Hemoglobin A1c 3 Months E11.8 - Type 2 diabetes mellitus with unspecified complications, N18.31 - Chronic kidney disease, stage 3a TSH reflex Free T4 3 Months E11.8 - Type 2 diabetes mellitus with unspecified complications, N18.31 - Chronic kidney disease, stage 3a AMB Hemoglobin A1c Today Z13.9 - Encounter for screening, unspecified UA CC w/rflx Micro + Cult Today E11.8 - Type 2 diabetes mellitus with unspecified complications, E78.2 - Mixed hyperlipidemia, I25.119 - Atherosclerotic heart disease of nikolski coronary artery with unspecified angina pectoris, N18.31 - Chronic kidney disease, stage 3a TDaP Immunization Today Z23 - Encounter for immunization Comprehensive Met. Panel 3 Months E11.8 - Type 2 diabetes mellitus with unspecified complications, N18.31 - Chronic kidney disease, stage 3a Vitamin D 25-OH Total 3 Months E11.8 - Type 2 diabetes mellitus with unspecified complications, N18.31 - Chronic kidney disease, stage 3a Vitamin B12 and Folate 3 Months E11.8 - Type 2 diabetes mellitus with unspecified complications, N18.31 - Chronic kidney disease, stage 3a Medications: New metformin ER 500 mg PO QPM 90 tabs 0RF Boostrix Tdap (diphth,pertus(acell),tetanus) 0.5 mL IM ONCE 0.5 mL 0RF NS Z23 - Encounter for immunization Changed From insulin glargine (Lantus Solostar U-100 Insulin) TAKE DAILY AT 12PM 10 units (0.1 mL) subcut DAILY 15 mL 0RF To insulin glargine (Lantus Solostar U-100 Insulin) TAKE DAILY AT 12PM 5 units (0.05 mL) subcut DAILY 15 mL 0RF Refilled mirtazapine 15 mg PO BEDTIME 90 tabs 0RF
[2024-06-13 12:26] VITALS: BP 124/68; PULSE 89; RESP 13; O2SAT 90; BMI 27.3
== END 2024-06-13 13:10 | disposition home or self-care (01) ==
PROVIDERS: PCP Nurse Practitioner Family; Visit Provider Nurse Practitioner Family
DX: E11.8 Type 2 diabetes mellitus with unspecified complications (principal); Z79.4 Long term (current) use of insulin; F51.05 Insomnia due to other mental disorder; I25.119 Atherosclerotic heart disease of native coronary artery with unspecified angina pectoris; E78.2 Mixed hyperlipidemia; N18.31 Chronic kidney disease, stage 3a; E11.42 Type 2 diabetes mellitus with diabetic polyneuropathy; Z23 Encounter for immunization; Z13.9 Encounter for screening, unspecified

== ENCOUNTER 2024-06-13 13:57 | Outpatient (REF) | payer MEDICARE, MEDICAID, SELFPAY ==
[2024-06-13 17:57] LABS: Alanine Aminotransferase 25 U/L (0-31); Albumin Level 4.2 g/dL (3.5-5.0); Alkaline Phosphatase 103 U/L (39-117); Anion Gap 15 (12-20); Aspartate Amino Transferase 31 U/L (5-31); Bilirubin Total 0.4 mg/dL (0.0-1.0); Blood Urea Nitrogen 17 mg/dL (9-16); Calcium 9.6 mg/dL (8.4-10.2); Carbon Dioxide 27 mmol/L (22-29); Chloride 106 mmol/L (96-108); Cholesterol 128 mg/dL (<200); Estimated Glomerular Filt Rate 53; Glucose Random 124 mg/dL (60-115); HDL Cholesterol 30 mg/dL (>40); LDL Cholesterol Calculated 60 mg/dL (<100); Potassium 3.6 mmol/L (3.3-5.1); Sodium 144 mmol/L (135-145); Total Protein 7.9 g/dL (6.5-8.0); Triglycerides 192 mg/dL (<150)
[2024-06-13 18:15] LABS: Creatinine Urine 23.59 mg/dL; Microalbum/Creatinine Ratio Ur 42.3 ug/mg cr (<30)
[2024-06-13 18:21] LABS: Appearance Urine Clear; Color Urine Yellow; Glucose Urine UA >=1000 mg/dL (Negative); Leukocyte Esterase Urine Trace (Negative); Nitrite Urine Negative (Negative); Specific Gravity - Urine 1.015 (1.005-1.025); UMIC TRIGGER UACC YES; Urine Blood Negative (Negative); Urine Ketones Negative (Negative); Urine Protein Negative (Neg-Trace)
[2024-06-13 18:27] LABS: Bacteria Urine None Seen (None Seen); Hyaline Casts Urine 0-2 /LPF (0-2); RBC Urine 0-2 /HPF (0-2); WBC Urine 0-5 /HPF (0-5)
[2024-06-13 18:29] LABS: Folate 18.6 ng/mL (> or = 4.0); Vitamin B12 953 pg/mL (200-900)
== END 2024-06-13 13:58 | disposition home or self-care (01) ==
LOC: HO.WFDLDS 13:57
PROVIDERS: Visit Provider Nurse Practitioner Family
DX: E11.8 Type 2 diabetes mellitus with unspecified complications (principal); E11.22 Type 2 diabetes mellitus with diabetic chronic kidney disease; N18.31 Chronic kidney disease, stage 3a; E11.42 Type 2 diabetes mellitus with diabetic polyneuropathy; I25.119 Atherosclerotic heart disease of native coronary artery with unspecified angina pectoris; E78.2 Mixed hyperlipidemia; F51.05 Insomnia due to other mental disorder; Z79.02 Long term (current) use of antithrombotics/antiplatelets; Z79.4 Long term (current) use of insulin; Z79.899 Other long term (current) drug therapy; Z23 Encounter for immunization; I50.22 Chronic systolic (congestive) heart failure
CPT/HCPCS: 36415; 80053; 80061; 81001; 82043; 82570; 82607; 82746; 83036; 90471; 90715; 96127; 99212

== ENCOUNTER → 2024-07-03 07:52 | Outpatient (REF) | payer MEDICARE, MEDICAID, SELFPAY ==
--- NOTE | ~2024-07-03 | NM_ITS ---
Lexiscan Myocardial perfusion study Indication: Precordial chest pain Technique: The patient was brought in for a Lexiscan perfusion study on 07/03/2024 and was injected 0.4 mg of Lexiscan intravenously. Within a minute of this injection 25 mCi of sestamibi was given intravenously. Images were obtained using the SPECT gamma camera interlaced with the gating device. Images were obtained in supine position. Resting perfusion study was performed on 07/04/2024. Patient was administered 25 mCi of sestamibi intravenously at rest. Images were then obtained in supine position. Images obtained with and without CT attenuation. Total DLP 143 mGy-cm. Images were processed with the software and compared side to side in short axis, horizontal long axis and vertical long axis views. Findings: The stress perfusion study showed both attenuated as well as nonattenuated corrected images show normal uptake of radiotracer in all segments of the LV myocardium. There is suggestion of left ventricular hypertrophy. The gated study shows normal LV systolic function with estimated LVEF of greater than 60%. LV cavity is normal in size. The gated study shows normal systolic wall thickening and contraction of segments. Resting study shows no change in perfusion pattern compared to stress perfusion study. Gating at rest reveals normal systolic wall motion with ejection fraction at greater than 60%. The findings are consistent with normal myocardial perfusion. NM/NM cardiolite stress test Impression: 1. Myocardial perfusion imaging study shows normal myocardial perfusion 2. Gated LVEF is greater than 60% 3. Transient ischemic dilatation not present Nondiagnostic changes on EKG. Electronically signed by: Wolf Escalante MD 07/05/2024 11:46 AM [facility]
--- NOTE | 2024-07-03 07:56 | CA_ITS ---
Acquisition Time: 2024-07-03 08:21:45 Total Exercise Time: 00:02:00 Test Indications: Dyspnea CP CAD Medications: SEE H Protocol: LEXISCAN Max HR: 127 BPM 88% of Pred: 144 BPM Max BP: 132/066 mmHG Max Work Load: 1.0 METS Pharmacologic stress test with Lexiscan, while kicking her legs in chair, with reports of 2/10 right sided chest discomfort, without any arrythmias, with normotensive response to injection. Nondiagnostic EKG for ischemia. In recovery, pt treated with IVP Aminophylline 75mg to reverse Lexiscan, after which chest discomfort resolved. Nuclear images pending. Test reviewed with Dr. Escalante. Referred By: Raj Moise Overread By: Shine Dalton
== END ==
LOC: HO.CARD 07:52
PROVIDERS: PCP Nurse Practitioner Family; Visit Provider Internal Medicine
DX: R07.2 Precordial pain (principal); I20.9 Angina pectoris, unspecified
CPT/HCPCS: 78452; 93017; A9500; J0280; J2785

== ENCOUNTER → 2024-07-03 07:56 | Outpatient (BNV) | payer MEDICARE, MEDICAID, SELFPAY | PROVIDERS: PCP Nurse Practitioner Family | DX: R07.9 Chest pain, unspecified (principal) | CPT/HCPCS: 78452; 93016; 93018 ==

== ENCOUNTER 2024-07-18 13:36 | Outpatient (AMB) | payer MEDICARE, MEDICAID, SELFPAY ==
[2024-07-18 13:51] VITALS: BP 132/70; PULSE 83; O2SAT 96; BMI 26.8
--- NOTE | 2024-07-18 13:51 | A.OFFVIS_ITS ---
Vital Signs 07/18/24 13:51 Height 5 ft Weight 137 lb BMI 26.8 BP 132/70 Blood Pressure Location Rt brachial Position Sitting Pulse 83 Pulse Source Pulse Oximeter Pulse Oximetry (%) 96 Oxygen Delivery Method Room Air Intake Visit Reasons: gabriel [employer] Required: No Fitter Armament: F[employer] offered & declined Accompanied by: Self / Same As Patient Allergies pineapple Allergy (Mild, Uncoded 07/18/24 13:54) rash birds Allergy (Unknown, Uncoded 07/18/24 13:54) Unknown Medication List - Last Reconciled 07/18/24 by Xochilt Akbar LPN acetaminophen 500 mg PO DAILY alcohol swabs 1 pad topical QIDACHS amlodipine (Norvasc) 5 mg PO DAILY apixaban (Eliquis) 5 mg PO BID [BIPAP Bipap 20/06 device with medium airfit F20 mask, use QHS. ] blood sugar diagnostic (FreeStyle Lite Strips) Test four times a day or as directed. blood-glucose meter (FreeStyle Lite Meter kit) As Directed blood-glucose meter,continuous (FreeStyle Harsha 3 [place]) As directed blood-glucose sensor (FreeStyle Harsha 3 Sensor device) As directed cholecalciferol (vitamin D3) 1,250 mcg PO DAILY clopidogrel 75 mg PO DAILY dapagliflozin propanediol (Farxiga) 5 mg PO QAM digoxin 125 mcg PO DAILY furosemide 40 mg PO DAILY glipizide ER 5 mg PO DAILY insulin glargine (Lantus Solostar U-100 Insulin) 5 units (0.05 mL) subcut DAILY insulin lispro (Humalog KwikPen (U-100) Insulin) 1 sliding scale dose subcut USEASDIRECTD lancets (FreeStyle Lancets) Test four times a day or as directed. lisinopril 40 mg PO DAILY metformin ER 500 mg PO QPM metoprolol tartrate 50 mg PO DAILY mirtazapine 15 mg PO BEDTIME multivitamin (Daily Multi-Vitamin tablet) 1 tab PO DAILY nystatin 1 appl topical BID 10 days omega-3 fatty acids 500 mg PO DAILY omeprazole 20 mg PO DAILY@0630 pen needle, diabetic Use four times a day or as directed. psyllium husk (Metamucil) 1 tbsp PO DAILY rosuvastatin 10 mg PO DAILY HPI HPI gabriel: Details: Marleni is a pleasant 78 year old female, never smoker, with underlying asthma, pulmonary nodules, interstitial lung disease, CAD, atrial fibrillation maintained on on eliquis, DMII, CHF on lasix 40 mg, CKDIII and GERD. There was question of ILD and patient trialed on prednisone. Unfortunately, she denied any symptomatic changes and there was minimal improvement on chest CT. Prior labs revealed +LAKESHA and has upcoming appt with Rheumatology. Today she presents to review compliance with BiPAP therapy. At the last visit, an order was sent to [facility] for an O2 connector to connect to BiPAP, which patient received however has not been connected. Advised to reach out to [facility] to set up supplemental oxygen at [facility]. Daughter was agreeable to call. She currently reports dry cough and dyspnea on exertion, denies chest tightness or wheezing. She denies any visits to urgent care or hospitalizations related to respiratory distress since the last visit. [facility] Medical History Persistent atrial fibrillation CAD (coronary artery disease), [place] coronary artery Amputated toe of right foot Family History Mother HTN (hypertension) Diabetes Cardiovascular disease Skin cancer Father Substance abuse Alcoholism Social History Household Members: Family Household Members Other:: daughter Housing: Apartment Do you presently have visiting nurse or other home services: No Alcohol intake: never Comment: pt refused all alarms Patient Tobacco Use Status: Never used Tobacco e-Cigarette/Vaping Use: Never Used Second Hand Smoke Exposure: No service: No Current occupational status: retired Current occupational exposures/hazards: No Cognitive needs: Yes Hearing needs: Yes Vision needs: No Review of Systems Const Denies chills, Denies excessive sweating, Denies fever(s), Denies headache(s) and Denies night sweats Eyes Denies dry eyes, Denies irritation and Denies itchy eyes ENT Reports Normal hearing present and Denies headache(s) Card Denies chest pain, Denies chest pain at rest, Denies chest pain with activity, Denies claudication, Denies leg edema, Reports dyspnea on exertion, Denies orthopnea and Denies paroxysmal nocturnal dyspnea Resp Denies chest congestion, Reports cough, Denies excessive phlegm production, Denies pain on inspiration, Denies pain with cough, Reports dyspnea on exertion and Denies stridor Musc Denies myalgias Neuro Reports Normal hearing present and Denies headache(s) Endo Denies excessive sweating Benji/Lymph Denies lymphadenopathy Aller/Immun Denies itchy eyes and Denies seasonal rhinorrhea Physical Exam Vital Signs: Last Vital Signs Pulse 83 07/18/24 13:51 BP 132/70 07/18/24 13:51 Pulse Ox 96 07/18/24 13:51 Oxygen Delivery Method Room Air 07/18/24 13:51 BMI result Body Mass Index 26.8 Const General: cooperative, healthy appearing, comfortable, no acute distress, well developed and alert Orientation/consciousness: patient oriented x3 Limitations: ambulation with cane HEENT Head: Yes normal to inspection, Yes normocephalic and Yes atraumatic Ears: hearing grossly normal bilaterally and external ears normal Eyes General: appearance normal, both eyes and all related structures Eyelids: Yes eyelids normal Sclerae: sclerae normal EOM: EOMs intact bilaterally Neck Neck: Yes normal visual inspection and Yes no lymphadenopathy Lymphatic: no lymphadenopathy noted Chest Chest palpation & inspection: normal inspection of the chest Resp Other: faint bibasilar inspiratory crackles Effort & Inspection: normal respiratory effort, able to speak in complete sentences, no audible wheezes, no cough, no stridor, not tachypneic, no tripod positioning and no use of accessory muscles Cardio Jugular venous distension: no JVD Rate: regular rate Rhythm: abnormal rhythm (afib) Skin Other: warm, dry General skin exam: no rashes or lesions noted Neuro General: patient oriented x3 Cranial nerves: Yes Normal hearing present Cognition (Neuro): normal cognition Gait exam (Neuro): Normal gait present Extrem General: Yes normal to inspection, Yes capillary refill normal, Yes no clubbing, cyanosis or edema and Yes no pedal edema Psych Appearance: grossly normal and well kempt Speech and movement: Normal speech and movement present and Clear speech present Affect: normal affect Attitude: cooperative Thought process: Normal thought process present Thought content: Normal thought content present Insight: Good insight present (Psych) Judgement: Good judgement present (Psych) Results Reviewed Results Reviewed: [address] [address] [address] Scan Report Signed Patient: Marleni Babin MR#: [id number] : 1945 Acct:[id number] Age/Sex: 78 / F ADM Date: 05/22/24 Loc: HO.CT Attending Dr: Aye Wiseman NP Ordering Physician: Aye Wiseman NP Date of Service: 05/22/24 Procedure(s): CT chest wo IV con Accession Number(s): [id number] cc: Merlyn MaloneP-; Aye Wiseman NP~ Report Number: [id number]: Total DLP = 162.00 mGy-cm EXAMINATION: CT CHEST WITHOUT CONTRAST CLINICAL INFORMATION: Interstitial pulmonary disease, unspecified. COMPARISON: CT chest dated February 07, 2024. TECHNIQUE: Multidetector volumetric CT imaging of the chest was done. Axial MIP volume rendering provided. Sagittal and coronal reformatted images were obtained. This CT examination was performed using dose optimization techniques as appropriate, variously including the following: *Automated exposure control *Adjustment of mA and/or kV according to patient size (this includes techniques or standardized protocols for targeted exams where dose is matched to indication/reason for exam; i.e. extremities or head) *Use of iterative reconstruction technique. DLP: 162 mGy centimeter. FINDINGS: Submitted for interpretation on July 21, 2024. Honeycombing in the periphery of the lung, mild. Pulmonary mosaic pattern, subtle. 3 mm calcified pulmonary nodule, peripheral left lower lung lobe. Linear attenuation in the lingula likely scarring. No gross consolidation, pleural effusion or pneumothorax. Respiratory airways is patent. Enlarged right atrium and appendage. Prominent main pulmonary artery. No gross pericardial effusion. Calcified plaques in the mitral valve and aortic valve. Calcified plaques throughout the thoracic aorta its main branches and the coronary arteries. Prominent, nonspecific lymph nodes in the mediastinum. Calcified plaques in the splenic artery and mesenteric arteries included in the exam as well as the origin of the main renal arteries and the abdominal aorta. Thyroid gland is not enlarged. Multilevel cervical thoracic and upper lumbar spondylosis. No acute fracture or gross listhesis. Osteopenia versus osteoporosis. CT/CT chest wo IV con IMPRESSION: No acute pulmonary process. Consider small pulmonary airway disease versus small airway disease. Cardiomegaly, predominantly at the right atrium. Prominent pulmonary artery outflow. Pulmonary hypertension should be considered. Coronary artery disease and atherosclerosis disease. Fleischner guidelines were followed. Electronically signed by: Matias Maza MD 07/21/2024 10:46 AM EST Dictated By: Matias Myers MD Signed By: <Electronically signed by Matias Beltrán MD in OV> 07/21/24 1046 DD/ 0854 TD/TT: 05/22/24 0922 Director Machine: Assessment & Plan Assessment & Plan (1) ILD (interstitial lung disease): Code(s): J84.9 - Interstitial pulmonary disease, unspecified Category: Medical (2) Environmental allergies: Code(s): Z91.09 - Other allergy status, other than to drugs and biological substances Category: Medical (3) Lung nodules: Code(s): R91.8 - Other nonspecific abnormal finding of lung field Category: Medical (4) Dyspnea: Code(s): R06.00 - Dyspnea, unspecified Category: Medical (5) CHF (congestive heart failure): Code(s): I50.9 - Heart failure, unspecified Category: Medical Qualifiers: Heart failure chronicity: chronic Heart failure type: systolic Qualified Code(s): I50.22 - Chronic systolic (congestive) heart failure (6) Nocturnal hypoxemia: Code(s): G47.34 - Idiopathic sleep related nonobstructive alveolar hypoventilation Category: Medical (7) LAKESHA positive: Code(s): R76.8 - Other specified abnormal immunological findings in serum Category: Medical Plan Patient reports some issues with BiPAP therapy affecting compliance but will attempt to be more compliant. Patient requires 4L of supplemental oxygen with BiPAP. Previously sent order for O2 adapter to [employer], patient received however not connected. Daughter in agreement to reach out to [employer] to set up. Will send for overnight oximetry to assess for resolution of nocturnal hypoxemia with use of BiPAP. Patient reports increased respiratory symptoms, will empirically trial symbicort. All questions were answered and patient is in agreement of plan. Will follow up in 6-8 weeks or sooner if needed. Medications: New budesonide-formoterol 80-4.5 mcg/actuation (Symbicort) 2 puffs inhalation Q12H 10.2 grams 3RF J84.9 - Interstitial pulmonary disease, unspecified Coding Level of Care Code Est Pt Level 4 (85344) Diagnoses ILD (interstitial lung disease) J84.9 Environmental allergies Z91.09 Lung nodules R91.8 Dyspnea R06.00 Chronic systolic congestive heart failure I50.22 Heart failure chronicity: chronic Heart failure type: systolic Nocturnal hypoxemia G47.34 LAKESHA positive R76.8
== END 2024-07-18 14:17 | disposition home or self-care (01) ==
PROVIDERS: PCP Nurse Practitioner Family; Visit Provider Nurse Practitioner Family
DX: J84.9 Interstitial pulmonary disease, unspecified (principal); Z91.09 Other allergy status, other than to drugs and biological substances; R91.8 Other nonspecific abnormal finding of lung field; R06.00 Dyspnea, unspecified; I50.22 Chronic systolic (congestive) heart failure; G47.34 Idiopathic sleep related nonobstructive alveolar hypoventilation; R76.8 Other specified abnormal immunological findings in serum
CPT/HCPCS: 99214

== ENCOUNTER → 2024-07-18 13:36 | Outpatient (BNVA) | payer MEDICARE, MEDICAID, SELFPAY | PROVIDERS: PCP Nurse Practitioner Family; Visit Provider Nurse Practitioner Family | DX: G47.34 Idiopathic sleep related nonobstructive alveolar hypoventilation (principal); J84.9 Interstitial pulmonary disease, unspecified; R91.8 Other nonspecific abnormal finding of lung field; R76.8 Other specified abnormal immunological findings in serum; R06.00 Dyspnea, unspecified; I50.22 Chronic systolic (congestive) heart failure; Z91.09 Other allergy status, other than to drugs and biological substances | CPT/HCPCS: 99212 ==

== ENCOUNTER 2024-08-15 15:02 | Outpatient (AMB) | payer MEDICARE, MEDICAID, SELFPAY ==
--- NOTE | 2024-08-15 15:04 | MHC.OFFVIS ---
Vital Signs 08/15/24 15:05 Height 5 ft Weight 132 lb 4.438 oz BMI 25.8 BP 116/60 Blood Pressure Location Lt brachial Position Sitting Pulse 80 Pulse Source Pulse Oximeter Intake Visit Reasons: F/U s/p chloe Agile Coach Required: Yes Agile Coach Services: Agile Coach Offered & Declined Accompanied by: Daughter Allergies pineapple Allergy (Mild, Uncoded 07/18/24 13:54) rash birds Allergy (Unknown, Uncoded 07/18/24 13:54) Unknown Medication List - Last Reconciled 08/15/24 by Raj Moise MD acetaminophen 500 mg PO DAILY amlodipine (Norvasc) 5 mg PO DAILY apixaban (Eliquis) 5 mg PO BID [BIPAP Bipap 20/06 device with medium airfit F20 mask, use QHS. ] blood sugar diagnostic (FreeStyle Lite Strips) Test four times a day or as directed. blood-glucose meter (FreeStyle Lite Meter kit) As Directed blood-glucose meter,continuous (FreeStyle Harsha 3 [place]) As directed blood-glucose sensor (FreeStyle Harsha 3 Sensor device) As directed budesonide-formoterol 80-4.5 mcg/actuation (Symbicort) 2 puffs inhalation Q12H cholecalciferol (vitamin D3) 1,250 mcg PO DAILY clopidogrel 75 mg PO DAILY dapagliflozin propanediol (Farxiga) 5 mg PO QAM digoxin 125 mcg PO DAILY furosemide 40 mg PO DAILY glipizide ER 5 mg PO DAILY insulin glargine (Lantus Solostar U-100 Insulin) 5 units (0.05 mL) subcut DAILY insulin lispro (Humalog KwikPen (U-100) Insulin) 1 sliding scale dose subcut USEASDIRECTD lancets (FreeStyle Lancets) Test four times a day or as directed. lisinopril 40 mg PO DAILY metformin ER 500 mg PO QPM metoprolol tartrate 50 mg PO DAILY mirtazapine 15 mg PO BEDTIME multivitamin (Daily Multi-Vitamin tablet) 1 tab PO DAILY nystatin 1 appl topical BID PRN omega-3 fatty acids 500 mg PO DAILY omeprazole 20 mg PO DAILY@0630 pen needle, diabetic Use four times a day or as directed. psyllium husk (Metamucil) 1 tbsp PO DAILY rosuvastatin 10 mg PO DAILY HPI Comments Details: Patient returns for follow-up. She carries a diagnosis of congestive heart failure and atrial fibrillation and previous ejection fraction in the 40s. After she moved here, could not get medications refilled and that led to atrial fibrillation with rapid rate and hospitalization. Then put on her usual medication regimen and she is much improved. Currently, she states she is doing good. No cardiac concerns. No symptoms. [facility] Medical History Persistent atrial fibrillation CAD (coronary artery disease), [place] coronary artery Amputated toe of right foot Family History Mother HTN (hypertension) Diabetes Cardiovascular disease Skin cancer Father Substance abuse Alcoholism Social History Household Members: Family Household Members Other:: daughter Housing: Apartment Do you presently have visiting nurse or other home services: No Alcohol intake: never Comment: pt refused all alarms Patient Tobacco Use Status: Never used Tobacco e-Cigarette/Vaping Use: Never Used Second Hand Smoke Exposure: No service: No Current occupational status: retired Current occupational exposures/hazards: No Cognitive needs: Yes Hearing needs: Yes Vision needs: No Review of Systems Const Denies weakness ENT Denies dizziness Card Denies chest pain, Denies chest pain with activity, Denies syncope, Denies rapid heart rate, Denies pedal edema, Denies edema, Denies leg edema, Denies lightheadedness, Denies palpitations, Denies dyspnea, Denies dyspnea on exertion and Denies orthopnea Resp Denies cough, Denies dyspnea and Denies dyspnea on exertion GI Denies hematochezia and Denies change in stool character Musc Denies abnormal gait, Denies muscle cramps, Denies muscle weakness, Denies numbness, Denies radiating pain into limb and Denies tingling Neuro Denies abnormal gait, Denies dizziness, Denies syncope, Denies numbness, Denies tingling and Denies weakness Endo Denies palpitations Physical Exam Vital Signs: Last Vital Signs Pulse 80 08/15/24 15:05 BP 116/60 08/15/24 15:05 BMI result Body Mass Index 25.8 Const General: comfortable and no acute distress Orientation/consciousness: patient oriented x3 HEENT Other: Unremarkable Head: Yes normal to inspection Neck Neck: Yes normal visual inspection Chest Chest palpation & inspection: normal inspection of the chest Resp Auscultation: clear to auscultation bilaterally Cardio Palpation: normal PMI Heart sounds: S1 normal heart sound present, S2 normal heart sound present, no gallops, no murmurs and no rubs GI Palpation (GI): Soft to palpation Back/Spine/Pelvis Other: unremarkable Skin General skin exam: no rashes or lesions noted Neuro General: patient oriented x3 Extrem General: Yes normal to inspection Psych Mental Status: mental status grossly normal Assessment & Plan Assessment & Plan (1) CHF (congestive heart failure): Code(s): I50.9 - Heart failure, unspecified Category: Medical Qualifiers: Heart failure chronicity: chronic Heart failure type: systolic Qualified Code(s): I50.22 - Chronic systolic (congestive) heart failure (2) Persistent atrial fibrillation: Code(s): I48.19 - Other persistent atrial fibrillation Category: Medical (3) Atherosclerotic cardiovascular disease: Code(s): I25.10 - Atherosclerotic heart disease of [place] coronary artery without angina pectoris Category: Medical Plan Cardiac studies reviewed. EKG from [facility] shows atrial fibrillation rapid rate at 144/Min. In the Holter, underlying rhythm is atrial fibrillation with an average rate of 68/Min and thought to be overall well controlled. Echocardiogram with LVEF of 63%. Moderate mitral annular calcification. In the chest CT scan, description of moderate coronary artery calcification. Enlarged pulmonary arteries thought to be from pulmonary arterial hypertension. Emphysema. Myocardial perfusion imaging study shows normal perfusion. With regard to atrial fibrillation, continue beta-blockers/digoxin. Continue Eliquis. With regard to coronary disease, continue statins. Last LDL 60 mg/dL. With regard to congestive heart failure, on diuretics, Farxiga. Stable. We will check with pharmacy regarding Plavix. Not clear why she needs it. May stopped. Discussed with family. Medications: Changed From nystatin 1 appl topical BID 10 days 30 grams 0RF To nystatin 1 appl topical BID PRN Coding Level of Care Code Est Pt Level 4 (80106) Complex EM visit Add On G2211 Diagnoses Chronic systolic congestive heart failure I50.22 Heart failure chronicity: chronic Heart failure type: systolic Persistent atrial fibrillation I48.19 Atherosclerotic cardiovascular disease I25.10
[2024-08-15 15:05] VITALS: BP 116/60; PULSE 80; BMI 25.8
== END 2024-08-15 15:24 | disposition home or self-care (01) ==
PROVIDERS: PCP Nurse Practitioner Family; Visit Provider Internal Medicine
DX: I50.22 Chronic systolic (congestive) heart failure (principal); I48.19 Other persistent atrial fibrillation; I25.10 Atherosclerotic heart disease of native coronary artery without angina pectoris
CPT/HCPCS: 99214; G2211

== ENCOUNTER → 2024-08-15 15:02 | Outpatient (BNVA) | payer MEDICARE, MEDICAID, SELFPAY | PROVIDERS: PCP Nurse Practitioner Family; Visit Provider Internal Medicine | DX: I50.22 Chronic systolic (congestive) heart failure (principal); I25.10 Atherosclerotic heart disease of native coronary artery without angina pectoris; I48.19 Other persistent atrial fibrillation | CPT/HCPCS: 99212 ==

== ENCOUNTER 2024-10-17 15:17 | Outpatient (REF) | payer MEDICARE, MEDICAID, SELFPAY ==
[2024-10-17 17:18] LABS: Estimated Average Glucose 143 mg/dL; Hemoglobin A1C 174.8112 umol/L; Hemoglobin A1c % 6.6 % (<6.0); Total Hemoglobin (HGBA1C) 3567.6038 umol/L
[2024-10-17 17:51] LABS: Alanine Aminotransferase 42 U/L (0-31); Albumin Level 4.6 g/dL (3.5-5.0); Alkaline Phosphatase 125 U/L (39-117); Anion Gap 14 (12-20); Aspartate Amino Transferase 48 U/L (5-31); B Type Natriuretic Peptide 299 pg/mL (<100); Bilirubin Total 0.5 mg/dL (0.0-1.0); Blood Urea Nitrogen 17 mg/dL (9-16); Calcium 9.9 mg/dL (8.4-10.2); Carbon Dioxide 23 mmol/L (22-29); Chloride 109 mmol/L (96-108); Estimated Glomerular Filt Rate > 60; Glucose Random 87 mg/dL (60-115); Potassium 3.7 mmol/L (3.3-5.1); Sodium 142 mmol/L (135-145); Total Protein 8.1 g/dL (6.5-8.0)
[2024-10-17 18:11] LABS: TSH reflex Free T4 2.43 uIU/mL (0.32-4.0); Vitamin D 25-OH Total 63.3 ng/mL (>30)
[2024-10-17 18:14] LABS: Folate 17.9 ng/mL (> or = 4.0); Vitamin B12 1145 pg/mL (200-900)
== END 2024-10-17 15:18 | disposition home or self-care (01) ==
LOC: HO.LAB 15:17
PROVIDERS: PCP Nurse Practitioner Family; Visit Provider Nurse Practitioner Family
DX: R09.89 Other specified symptoms and signs involving the circulatory and respiratory systems (principal); E11.8 Type 2 diabetes mellitus with unspecified complications; E11.22 Type 2 diabetes mellitus with diabetic chronic kidney disease; N18.31 Chronic kidney disease, stage 3a; G47.33 Obstructive sleep apnea (adult) (pediatric); Z99.89 Dependence on other enabling machines and devices
CPT/HCPCS: 36415; 80053; 82306; 82607; 82746; 83036; 83880; 84443; 99212

== ENCOUNTER 2024-10-17 15:17 | Outpatient (AMB) | payer MEDICARE, MEDICAID, SELFPAY ==
--- NOTE | 2024-10-17 15:17 | MHC.OFFVIS ---
Vital Signs 10/17/24 15:19 10/17/24 15:31 Height 5 ft Weight 144 lb BMI 28.1 BP 126/70 Pulse 91 Pulse Source Pulse Oximeter Pulse Oximetry (%) 86 L 96 Oxygen Delivery Method Room Air Nasal Cannula Oxygen Flow Rate 2 Intake Visit Reasons: Obstructive sleep apnea Instrument Specialist Required: No Cooking Teacher: Cooking Teacher offered & declined Accompanied by: Daughter Allergies pineapple Allergy (Mild, Uncoded 10/17/24 15:25) rash birds Allergy (Unknown, Uncoded 10/17/24 15:25) Unknown Medication List - Last Reconciled 10/17/24 by Xochilt Akbar LPN acetaminophen 500 mg PO DAILY amlodipine (Norvasc) 5 mg PO DAILY apixaban (Eliquis) 5 mg PO BID [BIPAP Bipap 20/06 device with medium airfit F20 mask, use QHS. ] blood sugar diagnostic (FreeStyle Lite Strips) Test four times a day or as directed. blood-glucose meter (FreeStyle Lite Meter kit) As Directed blood-glucose,director of infection control,cont (FreeStyle Harsha 3 [place]) As directed blood-glucose sensor (FreeStyle Harsha 3 Sensor device) As directed cholecalciferol (vitamin D3) 1,250 mcg PO DAILY clopidogrel 75 mg PO DAILY dapagliflozin propanediol (Farxiga) 5 mg PO QAM digoxin 125 mcg PO DAILY fluticasone propion-salmeterol 115-21 mcg/actuation (Advair HFA) 2 puffs inhalation Q12H furosemide 40 mg PO DAILY glipizide ER 5 mg PO DAILY insulin glargine (Lantus Solostar U-100 Insulin) 5 units (0.05 mL) subcut DAILY insulin lispro (Humalog KwikPen (U-100) Insulin) 1 sliding scale dose subcut USEASDIRECTD lancets (FreeStyle Lancets) Test four times a day or as directed. lisinopril 40 mg PO DAILY metformin ER 500 mg PO QPM metoprolol tartrate 50 mg PO DAILY mirtazapine 15 mg PO BEDTIME multivitamin (Daily Multi-Vitamin tablet) 1 tab PO DAILY nystatin 1 appl topical BID PRN omega-3 fatty acids 500 mg PO DAILY omeprazole 20 mg PO DAILY@0630 pen needle, diabetic Use four times a day or as directed. psyllium husk (Metamucil) 1 tbsp PO DAILY rosuvastatin 10 mg PO DAILY HPI HPI Obstructive sleep apnea: Details: Marleni is a pleasant 79 year old female, never smoker, with underlying asthma, pulmonary nodules, interstitial lung disease, CAD, atrial fibrillation maintained on on eliquis, DMII, CHF on lasix 40 mg, CKDIII and GERD. There was question of ILD and patient trialed on prednisone. Unfortunately, she denied any symptomatic changes and there was minimal improvement on chest CT. Prior labs revealed +LAKESHA and has upcoming appt with Rheumatology. Today she presents to review compliance with BiPAP therapy which she admits to having difficulties with due to mask issues. At the last visit, we discussed need to set up O2 adapter with 4L to bleed into BiPAP. Her daughter states she received the O2 adapter but did not know how to set up. We reviewed a video on how to connect and if she has questions will reach out to DME. She denies any visits to urgent care or hospitalizations related to respiratory distress since the last visit. Upon arrival to room patient 86% on room air, reporting mild dyspnea on exertion and occasional dry cough baseline symptoms. She denies dyspnea at rest, orthopnea or BLE edema. She reportedly has been compliant with lasix 40 mg QD. [facility] Medical History Persistent atrial fibrillation CAD (coronary artery disease), [place] coronary artery Amputated toe of right foot Family History Mother HTN (hypertension) Diabetes Cardiovascular disease Skin cancer Father Substance abuse Alcoholism Social History Household Members: Family Household Members Other:: daughter Housing: Apartment Do you presently have visiting nurse or other home services: No Alcohol intake: never Comment: pt refused all alarms Patient Tobacco Use Status: Never used Tobacco e-Cigarette/Vaping Use: Never Used Second Hand Smoke Exposure: No service: No Current occupational status: retired Current occupational exposures/hazards: No Cognitive needs: Yes Hearing needs: Yes Vision needs: No Review of Systems Const Denies chills, Denies excessive sweating, Denies fever(s), Denies headache(s) and Denies night sweats Eyes Denies dry eyes, Denies irritation and Denies itchy eyes ENT Reports Normal hearing present and Denies headache(s) Card Denies chest pain, Denies chest pain at rest, Denies chest pain with activity, Denies claudication, Denies leg edema, Reports dyspnea on exertion, Denies orthopnea and Denies paroxysmal nocturnal dyspnea Resp Denies chest congestion, Reports cough, Denies excessive phlegm production, Denies pain on inspiration, Denies pain with cough, Reports dyspnea on exertion and Denies stridor Musc Denies myalgias Neuro Reports Normal hearing present and Denies headache(s) Endo Denies excessive sweating Benji/Lymph Denies lymphadenopathy Aller/Immun Denies itchy eyes and Denies seasonal rhinorrhea Physical Exam Vital Signs: Last Vital Signs Pulse 91 10/17/24 15:19 BP 126/70 10/17/24 15:19 Pulse Ox 96 10/17/24 15:31 Oxygen Delivery Method Nasal Cannula 10/17/24 15:31 Oxygen Flow Rate 2 10/17/24 15:31 BMI result Body Mass Index 28.1 Const General: cooperative, healthy appearing, comfortable, no acute distress, well developed and alert Orientation/consciousness: patient oriented x3 Limitations: ambulation with cane HEENT Head: Yes normal to inspection, Yes normocephalic and Yes atraumatic Ears: hearing grossly normal bilaterally and external ears normal Eyes General: appearance normal, both eyes and all related structures Eyelids: Yes eyelids normal Sclerae: sclerae normal EOM: EOMs intact bilaterally Neck Neck: Yes normal visual inspection and Yes no lymphadenopathy Lymphatic: no lymphadenopathy noted Chest Chest palpation & inspection: normal inspection of the chest Resp Other: faint bibasilar inspiratory crackles Effort & Inspection: normal respiratory effort, able to speak in complete sentences, no audible wheezes, no cough, no stridor, not tachypneic, no tripod positioning and no use of accessory muscles Cardio Jugular venous distension: no JVD Rate: regular rate Rhythm: abnormal rhythm (afib) Skin Other: warm, dry General skin exam: no rashes or lesions noted Neuro General: patient oriented x3 Cranial nerves: Yes Normal hearing present Cognition (Neuro): normal cognition Extrem Other: trace pitting edema BLE General: Yes normal to inspection and Yes capillary refill normal Psych Appearance: grossly normal and well kempt Speech and movement: Normal speech and movement present and Clear speech present Affect: normal affect Attitude: cooperative Thought process: Normal thought process present Thought content: Normal thought content present Insight: Good insight present (Psych) Judgement: Good judgement present (Psych) Assessment & Plan Assessment & Plan (1) ILD (interstitial lung disease): Code(s): J84.9 - Interstitial pulmonary disease, unspecified Category: Medical (2) Environmental allergies: Code(s): Z91.09 - Other allergy status, other than to drugs and biological substances Category: Medical (3) Lung nodules: Code(s): R91.8 - Other nonspecific abnormal finding of lung field Category: Medical (4) Dyspnea: Code(s): R06.00 - Dyspnea, unspecified Category: Medical (5) CHF (congestive heart failure): Code(s): I50.9 - Heart failure, unspecified Category: Medical Qualifiers: Heart failure type: systolic Heart failure chronicity: chronic Qualified Code(s): I50.22 - Chronic systolic (congestive) heart failure (6) Nocturnal hypoxemia: Code(s): G47.34 - Idiopathic sleep related nonobstructive alveolar hypoventilation Category: Medical (7) LAKESHA positive: Code(s): R76.8 - Other specified abnormal immunological findings in serum Category: Medical Plan Patient continues to report issues with BiPAP therapy affecting compliance, will reach out to DME to trial different masks. Patient requires 4L of supplemental oxygen with BiPAP. Previously sent order for O2 adapter to [employer], which patient received however not connected. Reviewed video in office with daughter and gave link to watch at home. She is in agreement to reach out to [employer] if she has further questions. Once established consistently on BiPAP therapy, will send for overnight oximetry to assess for resolution of nocturnal hypoxemia with use of BiPAP. Patient reports overall controlled respiratory symptoms on current regimen, however arrived to exam room hypoxic, 86% on room air. On exam patient with increased bibasilar inspiratory crackles, will send for BNP to assess for cardiac contribution. Will also send for chest CT to assess for progression of ILD. Patient aware if symptoms worsen to seek emergent care. Will send order for B cylinder tanks and recommended 2L of supplemental oxygen with exertion. She currently has a concentrator at home. Will also send nebulizer for home use with Levalbuterol PRN given cardiac history. All questions were answered and patient is in agreement of plan. Will follow up in 4 weeks or sooner if needed. Orders: Orders B Type Natriuretic Peptide Today R09.89 - Other specified symptoms and signs involving the circulatory and respiratory systems CT chest wo IV con Today J84.9 - Interstitial pulmonary disease, unspecified Medications: New levalbuterol HCl 1.25 mg (3 mL) inhalation Q4-6H PRN 90 mL 0RF shortness of breath or wheezing Coding Level of Care Code Est Pt Level 4 (33174) Complex EM visit Add On G2211 Diagnoses ILD (interstitial lung disease) J84.9 Environmental allergies Z91.09 Lung nodules R91.8 Dyspnea R06.00 Chronic systolic congestive heart failure I50.22 Heart failure type: systolic Heart failure chronicity: chronic Nocturnal hypoxemia G47.34 LAKESHA positive R76.8
[2024-10-17 15:19] VITALS: BP 126/70; PULSE 91; O2SAT 86; BMI 28.1
[2024-10-17 15:31] VITALS: O2SAT 96
== END 2024-10-17 15:57 | disposition home or self-care (01) ==
LOC: HO.HPSW 15:17
PROVIDERS: PCP Nurse Practitioner Family; Visit Provider Nurse Practitioner Family
DX: J84.9 Interstitial pulmonary disease, unspecified (principal); Z91.09 Other allergy status, other than to drugs and biological substances; R91.8 Other nonspecific abnormal finding of lung field; R06.00 Dyspnea, unspecified; I50.22 Chronic systolic (congestive) heart failure; G47.34 Idiopathic sleep related nonobstructive alveolar hypoventilation; R76.8 Other specified abnormal immunological findings in serum
CPT/HCPCS: 99214; G2211

== ENCOUNTER 2024-11-16 13:02 | Outpatient (REF) | payer MEDICARE, MEDICAID, SELFPAY ==
--- NOTE | ~2024-11-16 | CT_ITS ---
EXAMINATION: CT CHEST WITHOUT CONTRAST CLINICAL INFORMATION: Interstitial pulmonary disease, unspecified. COMPARISON: 05/22/2024, 02/07/2024. TECHNIQUE: Multidetector volumetric CT imaging of the chest was done. Axial MIP volume rendering provided. Sagittal and coronal reformatted images were obtained. This CT examination was performed using dose optimization techniques as appropriate, variously including the following: *Automated exposure control *Adjustment of mA and/or kV according to patient size (this includes techniques or standardized protocols for targeted exams where dose is matched to indication/reason for exam; i.e. extremities or head) *Use of iterative reconstruction technique FINDINGS: LUNGS: Mild respiratory motion artifact present. This mildly limits the sensitivity of the exam. Allowing for differences in technique, essentially stable pattern of mosaic attenuation throughout both lungs, with peripheral reticular changes with associated groundglass changes, basilar predominant, and also involving the anterior right upper lobes right greater than left. Paraseptal emphysema is present, unchanged. No gross subpleural honeycombing is evident. No consolidations. No effusions. No pneumothorax. There is no significant peribronchovascular interstitial thickening. There is mild interlobular septal thickening in the bilateral lower lobes, right middle lobe and lingula. No significant bronchiectasis or small airway thickening. Central airways appear patent. There are no suspicious pulmonary nodules although there is mild limitation from respiratory motion. There is a left lower lobe calcified granuloma. Allowing for differences in technique, findings appear very similar without definite progression. MEDIASTINUM: Mildly heterogeneous thyroid without dominant nodule. There are similar prominent lymph nodes within the mediastinum. For example, a pretracheal lymph node in measures 1.1 cm short axis (series 7, image 34). A station 4R lymph node measures 1.1 cm (series 7, image 50). A subcarinal lymph node measures 1.1 cm. These findings are all stable from the prior examination and likely reflect reactive etiology. There is cardiomegaly. There is mitral annular calcification. There is evidence of pulmonary arterial hypertension, the main pulmonary artery measuring up to 4.1 cm in diameter. This is similar. There is no pericardial effusion. CORONARY ARTERY CALCIFICATION: There are moderate to heavy three-vessel coronary calcifications present. AXILLA/CHEST WALL: No abnormal axillary lymphadenopathy. There are calcifications in both breasts. Stable appearance. UPPER ABDOMEN: Moderate to heavy vascular calcifications, particularly of the splenic artery. 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 Remainder the imaged upper abdominal contents appear normal. OSSEOUS STRUCTURES: There is diffuse osteopenia. There are degenerative changes throughout the spine. No compression deformity. No suspicious lytic or blastic bone lesion evident. CT/CT chest wo IV con IMPRESSION: 1. Overall stable changes of moderate paraseptal pulmonary emphysema, with associated superimposed interstitial pulmonary disease with basilar predominance. Degree of mosaic attenuation and groundglass changes as well as subpleural reticulation all appear very similar to the most recent exams without definite progression. Again, differential includes interstitial lung disease such as UIP or NSIP, fibrotic lung disease secondary to collagen vascular disease, chronic hypersensitivity pneumonitis, or cryptogenic organizing pneumonia. Other etiologies are not excluded. 2. Mild to moderate cardiomegaly, similar. 3. Enlarged pulmonary arteries suggestive of pulmonary artery hypertension. 4. No suspicious pulmonary nodules although mild motion degradation may obscure small nodules. Electronically signed by: Martin Whelan MD 11/16/2024 02:35 PM EDT
== END 2024-11-16 13:03 | disposition home or self-care (01) ==
LOC: HO.CT 13:02
PROVIDERS: PCP Nurse Practitioner Family; Visit Provider Nurse Practitioner Family
DX: J84.9 Interstitial pulmonary disease, unspecified (principal)
CPT/HCPCS: 71250

== ENCOUNTER → 2024-11-16 13:06 | Outpatient (BNV) | payer MEDICARE, MEDICAID, SELFPAY | PROVIDERS: PCP Nurse Practitioner Family; Visit Provider Radiology Diagnostic Radiology | DX: J84.9 Interstitial pulmonary disease, unspecified (principal) | CPT/HCPCS: 71250 ==

== ENCOUNTER 2024-11-21 11:47 | Outpatient (AMB) | payer MEDICARE, MEDICAID, SELFPAY ==
--- NOTE | 2024-11-21 11:55 | A.OFFPC_ITS ---
Vital Signs 11/21/24 12:01 Height 5 ft Weight 148 lb 2 oz BMI 28.9 BP 124/72 Blood Pressure Location Lt brachial Position Sitting Respiration 12 Pulse 86 Pulse Source Pulse Oximeter Temp 97.6 F Temp Source Oral Pulse Oximetry (%) 94 Oxygen Delivery Method Room Air Intake Visit Reasons: 4 month follow up Intake Note: 4 Month follow up and patient also needs refill Product Marketing Intern Required: No Allergies pineapple Allergy (Severe, Uncoded 11/21/24 15:12) rash birds Allergy (Unknown, Uncoded 11/21/24 15:12) Unknown Medication List - Last Reconciled 11/21/24 by Merlyn Malone, PLASMA CENTER NURSE- acetaminophen 500 mg PO DAILY amlodipine (Norvasc) 5 mg PO DAILY apixaban (Eliquis) 5 mg PO BID [BIPAP Bipap 20/06 device with medium airfit F20 mask, use QHS. ] blood sugar diagnostic (FreeStyle Lite Strips) Test four times a day or as directed. blood-glucose meter (FreeStyle Lite Meter kit) As Directed blood-glucose sensor (FreeStyle Harsha 3 Sensor device) As directed blood-glucose,kettle loader,cont (FreeStyle Harsha 3 Keymar) As directed cholecalciferol (vitamin D3) 1,250 mcg PO DAILY clopidogrel 75 mg PO DAILY dapagliflozin propanediol (Farxiga) 5 mg PO QAM digoxin 125 mcg PO DAILY fluticasone propion-salmeterol 115-21 mcg/actuation (Advair HFA) 2 puffs inhalation Q12H furosemide 40 mg PO DAILY glipizide ER 5 mg PO DAILY insulin glargine (Lantus Solostar U-100 Insulin) 5 units (0.05 mL) subcut DAILY insulin lispro (Humalog KwikPen (U-100) Insulin) 1 sliding scale dose subcut USEASDIRECTD lancets (FreeStyle Lancets) Test four times a day or as directed. levalbuterol HCl 1.25 mg (3 mL) inhalation Q4-6H PRN 90 days lisinopril 40 mg PO DAILY metformin ER 500 mg PO QPM metoprolol tartrate 50 mg PO DAILY mirtazapine 15 mg PO BEDTIME multivitamin (Daily Multi-Vitamin tablet) 1 tab PO DAILY nystatin 1 appl topical BID PRN omega-3 fatty acids 500 mg PO DAILY omeprazole 20 mg PO DAILY@0630 pen needle, diabetic Use four times a day or as directed. psyllium husk (Metamucil) 1 tbsp PO DAILY rosuvastatin 10 mg PO DAILY Tobacco use date assessed: 11/21/24 Fall risk assessment: No Falls in past year Last assessed Fall Risk: 11/21/24 Dental Screening Dental Screen Date: 11/21/24 Did you have a dental visit in the last 12 months?: Yes Did you have a dental problem in the last 6 months where you did not have access to dental care?: No Was dental information given to patient?: Patient has dentist HPI HPI Comments History of Present Illness Details 79-year-old, Kazakh speaking female wit h arthrosclerosis of [place]re[place] arteries of bilateral lower extremities with pain and right leg with rest, gastroparesis, cardiomyopathy, AFib, right foot osteomyelitis, 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 Flu 04/17/24 Tdap 2023 Specialists: Pulm Cards Optho History of Present Illness - The patient is a 79-year-old female pr esenting for a routine follow-up. - Diabetes: Reports low blood glucose, e specially at night. Previous medication adjustments include Lantus and Glipizide ER, but currently out of Glipizide x1 month. Metformin added at last visit. No use Of ISS. Using CGM. - Hypertension: stable on current meds . - Weight Gain: Gained 4 pounds recently; no associated leg swelling reported. Eating more d/t hypoglycemia - Sleep Apnea, Depression: CPAP is not u sed regularly due to discomfort and lack of efficacy. Has sob with exertion and desats, Was Rx 02 to wear cont but reports dawkins too big. Returned all equip. Next pulm fu 02/2025. I sent heads up to Pulm SPOOLING SUPERVISOR on this. Uses mirtazapine for mood and sleep. Has helped some but still not sleeping through night. Naps during day. routine Cards f/u Taking all meds as directed. - Ongoing evaluations and follow-ups wit h cardiology and pulmonology. Review of Systems - General: Reports weight gain. - Cardiovascular: Denies swelling in leg s; reports nighttime low blood pressure. - Respiratory: Reports inadequate benefi t from CPAP, discomfort with large oxygen tank. - Neurological: Reports sleeping difficu lties, snoozing in daytime. - Endocrine: Reports low glucose reading s, particularly at night. - Psychological: Reports mood as ?so, so ,? using mirtazapine for depression. - Constitutional: Denies urinary problem s. Exam: awake alert accompanied by dtr, pleasant, cooperative PAF, / systolic murmur LS dim throughout BLE nonpalp pedal pulses, skin w chronic hemosiderin. Right foot s/p great and 2nd toe amps with well healed surgical incision. no edema BLE Bilat hands w/ dupytrens contractures, Left ring finger mostly effected Mood and affect WNL Diagnostic results See below Results 10/2024 LAbs Elevated LFT and Alk Phos, a 1c 6.6, otherwise normal b12 high not taking supplement CGM review today: 7 day GMI 5.6% 14 days 6.1% 30 days 6.4% Time in range 64% in range,4% 181-250, 22% 54-69, < 54 10% Consults reviewed 08/2024 Cards ? d/c plavix 10/[address] start Bipap and 0 2 Discussion Notes I discussed the various management options for the patient's chronic conditions, including diabetes and hypertension. For the diabetes management, we discussed discontinuing Lantus insulin due to frequent low blood glucose levels. We also agreed to discontinue Glipizide ER as she ran out of it a month ago and has been maintaining on Metformin and Farxiga. We will keep the patient on Farxiga in the morning and Metformin in the evening for controlling glucose levels. For hypertension, the patient reports stability in her blood pressure levels. I emphasized managing her sleep pattern by increasing mirtazapine. We also addressed the supply of oxygen tanks, advising to coordinate with pulmonology for more suitable equipment. Follow-up appointments with cardiology and pulmonology are noted to occur in February. Assessment and Plan 1. Type 2 Diabetes Mellitus We will discontinue Lantus insulin due to consistent low blood sugar readings, and Glipizide ER will not be restarted. Patient will continue Metformin and Farxiga for blood glucose control. Cont CGM 2. Hypertension The patient's blood pressure management is stable with existing treatment; no changes required. 3. Depression, Sleep Apnea Adjust mirtazapine to 30 mg to assist with depression and sleep. ILD, CLARENCE, need for 02: Coordinate with pulmonology to address oxygen tank issues. Message sent to Pulm SPOOLING SUPERVISOR. Patient Instructions - Stop taking Lantus insulin and Glipizi de ER. - Take Metformin 500 mg with dinner and Farxiga in the morning as instructed. - Work with pulmonology for a smaller ox ygen tank. - Use mirtazapine 30 mg as directed once acquired. - Maintain healthy lifestyle with [facility] diet and regular follow-up care. RTO 4-6 mo Sawv, sooner PRN Consent Patient was informed and verbally consented to the use of an ambient scribe for clinic note documentation during this visit. Total time spent caring for the patient today was 50 minutes. This includes time spent before the visit reviewing the chart, time spent during the visit, and time spent after the visit on documentation, reviewing laboratory results, diagnostic imaging, medications, performing a medically necessary evaluation, counseling on diagnoses, care coordination, ordering appropriate tests, ordering appropriate medications, review of tests performed by other providers, reporting test results with the patient, communication with other healthcare providers. [facility] Medical History Persistent atrial fibrillation CAD (coronary artery disease), flandreau coronary artery Amputated toe of right foot Family History Mother HTN (hypertension) Diabetes Cardiovascular disease Skin cancer Father Substance abuse Alcoholism Social History Household Members: Family Household Members Other:: daughter Housing: Apartment Do you presently have visiting nurse or other home services: No Alcohol intake: never Comment: pt refused all alarms Patient Tobacco Use Status: Never used Tobacco e-Cigarette/Vaping Use: Never Used Second Hand Smoke Exposure: No service: No Current occupational status: retired Current occupational exposures/hazards: No Cognitive needs: Yes Hearing needs: Yes Vision needs: No Questionnaire PHQ-9 Over the last 2 weeks, how often have you been bothered by any of the following problems? 1. Little interest or pleasure in doing things: several days 2. Feeling down, depressed, or hopeless: several days 3. Trouble falling or staying asleep, or sleeping too much: nearly every day 4. Feeling tired or having little energy: several days 5. Poor appetite or overeating: not at all 6. Feeling bad about yourself - or that you are a failure or have let yourself or your family down: not at all 7. Trouble concentrating on things, such as reading the newspaper or watching television: not at all 8. Moving or speaking so slowly that other people could have noticed. Or the opposite - being so fidgety or restless that you have been moving around a lot more than usual: nearly every day 9. Thoughts that you would be better off or of hurting yourself in some way: not at all Total score: 9 Depression Screening Interpretation: Positive Depression Screening Follow-up: Existing condition and Change in Medication Depression Screening Done: Yes 31695 - PHQ-9 Billing: Yes Source: Developed by Drs. Dat Mendes, Porsche Bah, Avila Matson and colleagues, with an educational frank from [employer]. Thrive Questionnaire Date Thrive assessed: 11/21/24 I am a: Patient What is your living situation today?: I have a steady place to live Within the past 12 months, did the food you bought not last and you didn't have the money to get more?: Never true Within the past 12 months, did you worry whether your food would run out before you got money to buy more?: Never true Do you have trouble paying for medicines?: No Do you have trouble getting transportation to medical appointments?: No Do you have trouble paying your heating and electricity bill?: No Do you have trouble taking care of your child, family member or friend?: I choose not to answer this question Do you have trouble with day-to-day activities such as bathing, preparing meals, shopping, managing finances, etc.?: I choose not to answer this question Are you currently unemployed and looking for a job?: No Are you interested in more education?: No Please select the resources that you would like help with: None Currently or been in a relationship where the following occur: No concerns reported THRIVE Score: 0 AUDIT C Alcohol Use Questionnaire (AUDIT-C) 1. How often do you have a drink containing alcohol?: Never 2. How many drinks containing alcohol do you have on a typical day when you are drinking?: 1 or 2 3. How often do you have six or more drinks on one occasion?: Never Total Score: 0 Score Reviewed/Action Taken: Yes NINO-7 AMB Questionnaire NINO-7 Date NINO - 7 assessed: 11/21/24 Feeling nervous, anxious, or on edge: 0 = Not at all Not being able to stop or control worryin = Not at all Worrying too much about different things: 1 = Several days Trouble relaxin = Several days Being so restless that it is hard to sit still: 0 = Not at all Becoming easily annoyed or irritable: 0 = Not at all Feeling afraid as if something awful might happen: 0 = Not at all Total NINO-7 score (0-4 normal; 5-9 mild; 10-14 moderate; 15-21 severe): 2 Source: Developed by Drs. Dat Mendes, Porsche Bah, Avila Matson and colleagues, with an educational frank from [employer]. NINO-7 Assessment Billing NINO-7 Assessment Tool: NINO-7 Assessment 85379 Physical exam (Primary Care) Vital Signs: Last Vital Signs Temp 97.6 F 11/21/24 12:01 Pulse 86 11/21/24 12:01 Resp 12 11/21/24 12:01 BP 124/72 11/21/24 12:01 Pulse Ox 94 11/21/24 12:01 Oxygen Delivery Method Room Air 11/21/24 12:01 BMI result Body Mass Index 28.9 Tobacco/Smoking Status: Tobacco use Status Tobacco use date assessed 11/21/24 11/21/24 11:58 Patient Tobacco Use Status Never used Tobacco 11/21/24 11:58 e-Cigarette/Vaping Use Never Used 11/21/24 11:58 PHQ-9: PHQ-9 Score PHQ-9: Total score 9 11/21/24 12:26 Depression Screening Interpretation: Positive Depression Screening Follow-up: Existing condition and Change in Medication Thrive Assessment: Date of Thrive Assessment Date Thrive assessed 11/21/24 11/21/24 11:58 Currently or been in a relationship where the following occur: No concerns reported Office Procedures Glucose Monitoring Details 83972 - Glucose monitoring, continuous-physician I&R Procedure code (CPT) selection complete Results Reviewed Results Reviewed: CT/CT chest wo IV con IMPRESSION: 1. Overall stable changes of moderate paraseptal pulmonary emphysema, with associated superimposed interstitial pulmonary disease with basilar predominance. Degree of mosaic attenuation and groundglass changes as well as subpleural reticulation all appear very similar to the most recent exams without definite progression. Again, differential includes interstitial lung disease such as UIP or NSIP, fibrotic lung disease secondary to collagen vascular disease, chronic hypersensitivity pneumonitis, or cryptogenic organizing pneumonia. Other etiologies are not excluded. 2. Mild to moderate cardiomegaly, similar. 3. Enlarged pulmonary arteries suggestive of pulmonary artery hypertension. 4. No suspicious pulmonary nodules although mild motion degradation may obscure small nodules. Electronically signed by: Martin Whelan MD 11/16/2024 02:35 PM EDT RP Coding Level of Care Code Est Pt Level 5 (33358) Complex EM visit Add On G2211 Diagnoses Paroxysmal atrial fibrillation I48.0 Atrial fibrillation type: paroxysmal Amputated toe of right foot S98.131A Atherosclerotic cardiovascular disease I25.10 Chronic systolic congestive heart failure I50.22 Heart failure type: systolic Heart failure chronicity: chronic Stage 3a chronic kidney disease N18.31 Chronic kidney disease stage 3 subtype: stage 3a (GFR 45-59) Coronary artery disease involving flandreau coronary artery of flandreau heart with angina pectoris I25.119 Coronary Disease-Associated Artery/Lesion type: flandreau artery [place] vs. 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 Code(s): I48.91 - Unspecified atrial fibrillation Category: Medical Qualifiers: Atrial fibrillation type: paroxysmal Qualified Code(s): I48.0 - Paroxysmal atrial fibrillation (2) Amputated toe of right foot: Comment: current, right foot 1st and 2nd toe amputation Code(s): S98.131A - Complete traumatic amputation of one right lesser toe, initial encounter Category: Medical (3) Atherosclerotic cardiovascular disease: Code(s): I25.10 - Atherosclerotic heart disease of flandre[place] coronary artery without angina pectoris Category: Medical (4) CHF (congestive heart failure): Code(s): I50.9 - Heart failure, unspecified Category: Medical Qualifiers: Heart failure type: systolic Heart failure chronicity: chronic Qualified Code(s): I50.22 - Chronic systolic (congestive) heart failure (5) CKD (chronic kidney disease) stage 3, GFR 30-59 ml/min: Comment: 10/2023 eGFR 58 Labs from October 16 2023 show normal electrolytes BUN 17, creatinine 0.9,, random glucose 195 phosphorus, magnesium, normal calcium, vitamin-D pending, elevated parathyroid hormone 97.8, elevated urine microalbumin creatinine ratio 83.8 Code(s): N18.30 - Chronic kidney disease, stage 3 unspecified Category: Medical Qualifiers: Chronic kidney disease stage 3 subtype: stage 3a (GFR 45-59) Qualified Code(s): N18.31 - Chronic kidney disease, stage 3a (6) Coronary artery disease with angina pectoris: Comment: Maintained on Plavix, lisinopril 40 mg p.o. daily, metoprolol, amlodipine. Last episode of angina occurring less than 12 months ago. Code(s): I25.119 - Atherosclerotic heart disease of flandre[place] coronary artery with unspecified angina pectoris Category: Medical Qualifiers: Coronary Disease-Associated Artery/Lesion type: flandreau artery [place] vs. transplanted heart: flandreau heart Qualified Code(s): I25.119 - Atherosclerotic heart disease of [place] coronary artery with unspecified angina pectoris (7) Diabetes mellitus type 2 with complications: Comment: HTN and HLD Code(s): E11.8 - Type 2 diabetes mellitus with unspecified complications Category: Medical (8) Dupuytren's contracture of both hands: Comment: discussed treatment options, injections, referrals, OT. Declines all of the above Code(s): M72.0 - Palmar fascial fibromatosis [Dupuytren] Category: Medical (9) Hyperlipidemia: Comment: LDL goal will be less than 70 10/15/23 LDL 134 onRosuvastatin 10mg po QD. Code(s): E78.5 - Hyperlipidemia, unspecified Category: Medical Qualifiers: Hyperlipidemia type: mixed hyperlipidemia Qualified Code(s): E78.2 - Mixed hyperlipidemia (10) ILD (interstitial lung disease): Code(s): J84.9 - Interstitial pulmonary disease, unspecified Category: Medical (11) Insulin dose changed: Comment: d/c today Code(s): Z79.4 - retirement (current) use of insulin Category: Medical (12) CLARENCE (obstructive sleep apnea): Comment: Sleep study 12/01/2023 shows obstructive sleep apnea, moderately severe, total sleep time AHI 18. There is persistent nocturnal hypoxemia with average O2 sat 85% the lowest 72%, O2 sat below 88% for 578 minutes. The recommendations are the patient is to be started her definite treatment a sap. For treatment CPAP titration is needed the sleep lab. Determine the optimal pressure into November showed hypoxemia is corrected. 12/2023 TITRATION study: Start with Bipap 20/06 with medium airfit F20 mask Code(s): G47.33 - Obstructive sleep apnea (adult) (pediatric) Category: Medical (13) Secondary hyperaldosteronism: Comment: related to CHF, on furosemide Code(s): E26.1 - Secondary hyperaldosteronism Category: Medical (14) Secondary hypercoagulable state: Comment: Secondary to AFib currently maintained on Eliquis. Code(s): D68.69 - Other thrombophilia Category: Medical (15) Secondary hyperparathyroidism (of renal origin): Comment: Labs from October 16 2023 show normal electrolytes BUN 17, creatinine 0.9,, random glucose 195 phosphorus, magnesium, normal calcium, vitamin-D pending, elevated parathyroid hormone 97.8, elevated urine microalbumin creatinine ratio 83.8 Code(s): N25.81 - Secondary hyperparathyroidism of renal origin Category: Medical Plan . Medications: Changed From mirtazapine 15 mg PO BEDTIME 90 tabs 1RF To mirtazapine 30 mg PO BEDTIME 90 tabs 1RF Refilled rosuvastatin 10 mg PO DAILY 90 tabs 1RF furosemide 40 mg PO DAILY 90 tabs 2RF dapagliflozin propanediol (Farxiga) 5 mg PO QAM 90 tabs 2RF apixaban (Eliquis) 5 mg PO BID 180 tabs 0RF metformin ER 500 mg PO QPM 90 tabs 1RF mirtazapine 15 mg PO BEDTIME 90 tabs 1RF Discontinued insulin lispro (Humalog KwikPen (U-100) Insulin) BG <111 0 units, 111-150 - 0 units, 151-200 4 units, 201-250 8 units, 251-300 10 units, 301-350 12 units, >350 14 units Discontinued Reason: Doctor's Order 1 sliding scale dose subcut USEASDIRECTD 15 mL 0RF E11.8 - Type 2 diabetes mellitus with unspecified complications glipizide ER take 30 minutes before breakfast Discontinued Reason: Doctor's Order 5 mg PO DAILY 90 tabs 0RF
[2024-11-21 12:01] VITALS: BP 124/72; PULSE 86; RESP 12; TEMP 36.4; O2SAT 94; BMI 28.9
== END 2024-11-21 13:01 | disposition home or self-care (01) ==
LOC: HO.HMCFM 11:49
PROVIDERS: PCP Nurse Practitioner Family; Visit Provider Nurse Practitioner Family
DX: I25.10 Atherosclerotic heart disease of native coronary artery without angina pectoris (principal); I48.0 Paroxysmal atrial fibrillation; I50.22 Chronic systolic (congestive) heart failure; N18.31 Chronic kidney disease, stage 3a; E11.8 Type 2 diabetes mellitus with unspecified complications; J84.9 Interstitial pulmonary disease, unspecified; Z79.4 Long term (current) use of insulin; S98.131A Complete traumatic amputation of one right lesser toe, initial encounter; I25.119 Atherosclerotic heart disease of native coronary artery with unspecified angina pectoris; M72.0 Palmar fascial fibromatosis [Dupuytren]; E78.2 Mixed hyperlipidemia; G47.33 Obstructive sleep apnea (adult) (pediatric)

== ENCOUNTER → 2024-11-21 11:47 | Outpatient (BNVA) | payer MEDICARE, MEDICAID, SELFPAY | PROVIDERS: PCP Nurse Practitioner Family; Visit Provider Nurse Practitioner Family | DX: J84.9 Interstitial pulmonary disease, unspecified (principal); J45.909 Unspecified asthma, uncomplicated; R91.8 Other nonspecific abnormal finding of lung field; I50.22 Chronic systolic (congestive) heart failure; G47.34 Idiopathic sleep related nonobstructive alveolar hypoventilation; R76.8 Other specified abnormal immunological findings in serum; G47.33 Obstructive sleep apnea (adult) (pediatric); I48.0 Paroxysmal atrial fibrillation; S98.131D Complete traumatic amputation of one right lesser toe, subsequent encounter; I25.10 Atherosclerotic heart disease of native coronary artery without angina pectoris; N18.31 Chronic kidney disease, stage 3a; I25.119 Atherosclerotic heart disease of native coronary artery with unspecified angina pectoris; M72.0 Palmar fascial fibromatosis [Dupuytren]; E78.3 Hyperchylomicronemia; E26.1 Secondary hyperaldosteronism; D68.69 Other thrombophilia; N25.81 Secondary hyperparathyroidism of renal origin; Z91.09 Other allergy status, other than to drugs and biological substances; Z79.4 Long term (current) use of insulin | CPT/HCPCS: 94618; 96127; 99212 ==

== ENCOUNTER 2024-11-21 14:51 | Outpatient (AMB) | payer MEDICARE, MEDICAID, SELFPAY ==
[2024-11-21 15:07] VITALS: BP 120/68; PULSE 81; O2SAT 90; BMI 29.1
--- NOTE | 2024-11-21 15:07 | A.OFFVIS_ITS ---
Vital Signs 11/21/24 15:07 Height 5 ft Weight 149 lb BMI 29.1 BP 120/68 Blood Pressure Location Lt brachial Position Sitting Pulse 81 Pulse Source Pulse Oximeter Pulse Oximetry (%) 90 L Oxygen Delivery Method Room Air Intake Visit Reasons: Obstructive sleep apnea Allergies pineapple Allergy (Severe, Uncoded 11/21/24 15:12) rash birds Allergy (Unknown, Uncoded 11/21/24 15:12) Unknown HPI HPI Obstructive sleep apnea: Details: Marleni is a pleasant 79 year old female, never smoker, with underlying asthma, pulmonary nodules, interstitial lung disease, CAD, atrial fibrillation maintained on on eliquis, DMII, CHF on lasix 40 mg, CKDIII and GERD. There was question of ILD and patient trialed on prednisone. Unfortunately, she denied any symptomatic changes and there was minimal improvement on chest CT. Prior labs revealed +LAKESHA and has been established with Rheumatology. At the last visit, Advair and levalbuterol were sent however patient has yet to obtain. Patient currently denies respiratory symptoms other than dyspnea with exertion. She is supposed to be using 2L supplemental oxygen with exertion however has not been using and is not wearing any today. She was requesting B cylinders, but now requesting trolley for current tanks. She also has severe CLARENCE with nocturnal hypoxemia, placed on BiPAP with 4L supplemental oxygen NOC, but after multiple failed attempts can not tolerate. She has returned BiPAP equipment to [facility]. She is agreeable to use supplemental oxygen NOC, requesting humidifier for use. Today she presents to review chest CT results. [facility] Medical History Persistent atrial fibrillation CAD (coronary artery disease), [place] coronary artery Amputated toe of right foot Family History Mother HTN (hypertension) Diabetes Cardiovascular disease Skin cancer Father Substance abuse Alcoholism Social History Household Members: Family Household Members Other:: daughter Housing: Apartment Do you presently have visiting nurse or other home services: No Alcohol intake: never Comment: pt refused all alarms Patient Tobacco Use Status: Never used Tobacco e-Cigarette/Vaping Use: Never Used Second Hand Smoke Exposure: No service: No Current occupational status: retired Current occupational exposures/hazards: No Cognitive needs: Yes Hearing needs: Yes Vision needs: No Review of Systems Const Denies chills, Denies excessive sweating, Denies fever(s), Denies headache(s) and Denies night sweats Eyes Denies dry eyes, Denies irritation and Denies itchy eyes ENT Reports Normal hearing present and Denies headache(s) Card Denies chest pain, Denies chest pain at rest, Denies chest pain with activity, Denies claudication, Denies leg edema, Reports dyspnea on exertion, Denies orthopnea and Denies paroxysmal nocturnal dyspnea Resp Denies chest congestion, Denies cough, Denies excessive phlegm production, Denies pain on inspiration, Denies pain with cough, Reports dyspnea on exertion, Denies stridor and Denies wheezing Musc Denies myalgias Neuro Reports Normal hearing present and Denies headache(s) Endo Denies excessive sweating Benji/Lymph Denies lymphadenopathy Aller/Immun Denies itchy eyes, Denies seasonal rhinorrhea and Denies wheezing Physical Exam Vital Signs: Last Vital Signs Pulse 81 11/21/24 15:07 BP 120/68 11/21/24 15:07 Pulse Ox 90 L 11/21/24 15:07 Oxygen Delivery Method Room Air 11/21/24 15:07 BMI result Body Mass Index 29.1 Const General: cooperative, healthy appearing, comfortable, no acute distress, well developed and alert Orientation/consciousness: patient oriented x3 Limitations: ambulation with cane HEENT Head: Yes normal to inspection, Yes normocephalic and Yes atraumatic Ears: hearing grossly normal bilaterally and external ears normal Eyes General: appearance normal, both eyes and all related structures Eyelids: Yes eyelids normal Sclerae: sclerae normal EOM: EOMs intact bilaterally Neck Neck: Yes normal visual inspection and Yes no lymphadenopathy Lymphatic: no lymphadenopathy noted Chest Chest palpation & inspection: normal inspection of the chest Resp Other: faint bibasilar inspiratory crackles Effort & Inspection: normal respiratory effort, able to speak in complete sentences, no audible wheezes, no cough, no stridor, not tachypneic, no tripod positioning and no use of accessory muscles Cardio Jugular venous distension: no JVD Rate: regular rate Rhythm: abnormal rhythm (afib) Skin Other: warm, dry General skin exam: no rashes or lesions noted Neuro General: patient oriented x3 Cranial nerves: Yes Normal hearing present Cognition (Neuro): normal cognition Extrem Other: trace pitting edema BLE General: Yes normal to inspection and Yes capillary refill normal Psych Appearance: grossly normal and well kempt Speech and movement: Normal speech and movement present and Clear speech present Affect: normal affect Attitude: cooperative Thought process: Normal thought process present Thought content: Normal thought content present Insight: Good insight present (Psych) Judgement: Good judgement present (Psych) Office Procedures 6 Minute Walk Time:: 15:45 SPO2 % at rest: 90 Pulse at rest: 90 SPO2 % during excercise: 87 Pulse during excercise: 120 SPO2 % after excercise: 94 Pulse after excercise: 88 Distance in yards walked: 50 Performance Observations:: Patient walked on level ground using a cane for balance in left hand, gait is slow and unsteady. After less than one minute O2 saturation dropped to 87% and pulse of 93. O2 applied at 1L with no real change. O2 via nasal cannula increased to 2L with O2 sat increased to 93%with pulse of 120.Continued walk for approx 2 more minutes and maintained O2 saturation of 93- 94% and pulse rate 108-118 . Patient tires easily. Patient would benefit with the use of supplemental oxygen at 2L with exertion. [id number] - 6 Minute Walk Results Reviewed Results Reviewed: [place] [address] CT Scan Report Signed Patient: Marleni Babin MR#: [id number] : 1945 Acct:[id number] Age/Sex: 79 / F ADM Date: 11/16/24 Loc: HO.CT Attending Dr: Aye Wiseman NP Ordering Physician: Aye Wiseman NP Date of Service: 11/16/24 Procedure(s): CT chest wo IV con Accession Number(s): [id number] cc: Merlyn Malone-BC; Aye Wiseman NP~ Report Number: [id number]: Total DLP = 138.00 mGy-cm EXAMINATION: CT CHEST WITHOUT CONTRAST CLINICAL INFORMATION: Interstitial pulmonary disease, unspecified. COMPARISON: 05/22/2024, 02/07/2024. TECHNIQUE: Multidetector volumetric CT imaging of the chest was done. Axial MIP volume rendering provided. Sagittal and coronal reformatted images were obtained. This CT examination was performed using dose optimization techniques as appropriate, variously including the following: *Automated exposure control *Adjustment of mA and/or kV according to patient size (this includes techniques or standardized protocols for targeted exams where dose is matched to indication/reason for exam; i.e. extremities or head) *Use of iterative reconstruction technique FINDINGS: LUNGS: Mild respiratory motion artifact present. This mildly limits the sensitivity of the exam. Allowing for differences in technique, essentially stable pattern of mosaic attenuation throughout both lungs, with peripheral reticular changes with associated groundglass changes, basilar predominant, and also involving the anterior right upper lobes right greater than left. Paraseptal emphysema is present, unchanged. No gross subpleural honeycombing is evident. No consolidations. No effusions. No pneumothorax. There is no significant peribronchovascular interstitial thickening. There is mild interlobular septal thickening in the bilateral lower lobes, right middle lobe and lingula. No significant bronchiectasis or small airway thickening. Central airways appear patent. There are no suspicious pulmonary nodules although there is mild limitation from respiratory motion. There is a left lower lobe calcified granuloma. Allowing for differences in technique, findings appear very similar without definite progression. MEDIASTINUM: Mildly heterogeneous thyroid without dominant nodule. There are similar prominent lymph nodes within the mediastinum. For example, a pretracheal lymph node in measures 1.1 cm short axis (series 7, image 34). A station 4R lymph node measures 1.1 cm (series 7, image 50). A subcarinal lymph node measures 1.1 cm. These findings are all stable from the prior examination and likely reflect reactive etiology. There is cardiomegaly. There is mitral annular calcification. There is evidence of pulmonary arterial hypertension, the main pulmonary artery measuring up to 4.1 cm in diameter. This is similar. There is no pericardial effusion. CORONARY ARTERY CALCIFICATION: There are moderate to heavy three-vessel coronary calcifications present. AXILLA/CHEST WALL: No abnormal axillary lymphadenopathy. There are calcifications in both breasts. Stable appearance. UPPER ABDOMEN: Moderate to heavy vascular calcifications, particularly of the splenic artery. 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 Remainder the imaged upper abdominal contents appear normal. OSSEOUS STRUCTURES: There is diffuse osteopenia. There are degenerative changes throughout the spine. No compression deformity. No suspicious lytic or blastic bone lesion evident. CT/CT chest wo IV con IMPRESSION: 1. Overall stable changes of moderate paraseptal pulmonary emphysema, with associated superimposed interstitial pulmonary disease with basilar predominance. Degree of mosaic attenuation and groundglass changes as well as subpleural reticulation all appear very similar to the most recent exams without definite progression. Again, differential includes interstitial lung disease such as UIP or NSIP, fibrotic lung disease secondary to collagen vascular disease, chronic hypersensitivity pneumonitis, or cryptogenic organizing pneumonia. Other etiologies are not excluded. 2. Mild to moderate cardiomegaly, similar. 3. Enlarged pulmonary arteries suggestive of pulmonary artery hypertension. 4. No suspicious pulmonary nodules although mild motion degradation may obscure small nodules. Electronically signed by: Martin Whelan MD 11/16/2024 02:35 PM EDT Dictated By: Martin Whelan MD PFT's Complete Please click on pdf link to open report PFT's Complete Name: MARLENI MCCANN CMRN: [id number] Sex: F Age: 78 Ethnicity: Il Height: 65.1 In Weight: 132 Lb BMI: 21.9 Referring: Aye Wiseman M.D. Date of test: 31-Mar-2024 SPIROMETRY: FEV1 1.65, 79%; FVC 1.80, 66%; FEV1/FVC 92%; PEFR 4.75, 93%; INTERPRETATION: Mild ventilatory defect, without obstruction. The vital capacity is reduced probably due to a restrictive process and likely would have been 0.1 to 0.2 L higher with longer exhalation time. PEFR is increased relative to FVC. The finding of low FVC and elevated PEFR relative to FVC raises concern for interstitial lung disease. Patient unable to perform lung volume or DLCO. Interpreting Physician: Ze Arzola M.D. Signed By: <Electronically signed by Martin Whelan MD in OV> 11/16/24 1435 DD/ 1311 TD/TT: 11/16/24 1403 Screening Tech: Assessment & Plan Assessment & Plan (1) ILD (interstitial lung disease): Code(s): J84.9 - Interstitial pulmonary disease, unspecified Category: Medical (2) Environmental allergies: Code(s): Z91.09 - Other allergy status, other than to drugs and biological substances Category: Medical (3) Asthma: Code(s): J45.909 - Unspecified asthma, uncomplicated Category: Medical (4) Lung nodules: Code(s): R91.8 - Other nonspecific abnormal finding of lung field Category: Medical (5) CHF (congestive heart failure): Code(s): I50.9 - Heart failure, unspecified Category: Medical Qualifiers: Heart failure chronicity: chronic Heart failure type: systolic Q ualified Code(s): I50.22 - Chronic systolic (congestive) heart failure (6) Nocturnal hypoxemia: Code(s): G47.34 - Idiopathic sleep related nonobstructive alveolar hypoventilation Category: Medical (7) LAKESHA positive: Code(s): R76.8 - Other specified abnormal immunological findings in serum Category: Medical (8) CLARENCE (obstructive sleep apnea): Comment: Sleep study 12/01/2023 shows obstructive sleep apnea, moderately severe, total sleep time AHI 18. There is persistent nocturnal hypoxemia with average O2 sat 85% the lowest 72%, O2 sat below 88% for 578 minutes. The recommendations are the patient is to be started her definite treatment a sap. For treatment CPAP titration is needed the sleep lab. Determine the optimal pressure into November showed hypoxemia is corrected. 12/2023 TITRATION study: Start with Bipap 20/06 with medium airfit F20 mask Code(s): G47.33 - Obstructive sleep apnea (adult) (pediatric) Category: Medical Plan Marleni reports ongoing dyspnea with exertion, requiring supplemental oxygen however has had difficulties transporting. Will send order for trolley to use as she would prefer this over B cylinder tanks. 6MWT today confirmed continued need for 2L supplemental oxygen. Discussed adverse effects of hypoxia and patient agreeable to use. Patient has trialed BiPAP therapy however can not tolerate and has not been compliant for quite some time. She returned equipment back to [facility]. She was agreeable to use supplemental oxygen NOC. Will send for overnight oximetry to ensure 4L is optimal. She is also requesting a humidifed oxygen. Discussed adverse effects of uncontrolled CLARENCE and patient understood the po tential risks of not using. Reviewed chest CT which continued to reveal ILD, with minimal change from prior chest CT 05/2024. Will continue to monitor, may need to consider prednisone vs antifibrotic however patient reluctant to trial any other medications at this time. Patient with h/o asthma, previously unable to obtain advair, will send symbicort. She is still awaiting for levalbuterol, rx resent for 90 day supply per pharmacy request. Will also repeat PFT for 03/2025 to assess decline in lung function. All questions were answered and patient is in agreement of plan. Will follow up in 3 months or sooner if needed. Orders: Orders AMB 6 minute walk 11/21/24 J84.9 - Interstitial pulmonary disease, unspecified, R06.00 - Dyspnea, unspecified PFT pulmonary function test 4 Months J45.909 - Unspecified asthma, uncomplicated, J84.9 - Interstitial pulmonary disease, unspecified Overnight Pulse Oximetry Today G47.34 - Idiopathic sleep related nonobstructive alveolar hypoventilation, J84.9 - Interstitial pulmonary disease, unspecified Medications: New budesonide-formoterol 160-4.5 mcg/actuation (Symbicort) 2 puffs inhalation Q12H 10.2 grams 6RF J45.909 - Unspecified asthma, uncomplicated Discontinued fluticasone propion-salmeterol 115-21 mcg/actuation (Advair HFA) Discontinued Reason: Insurance Denied 2 puffs inhalation Q12H 12 grams 4RF Coding Level of Care Code Est Pt Level 4 (51778) Complex EM visit Add On G2211 Diagnoses ILD (interstitial lung disease) J84.9 Environmental allergies Z91.09 Asthma J45.909 Lung nodules R91.8 Chronic systolic congestive heart failure I50.22 Heart failure chronicity: chronic Heart failure type: systolic Nocturnal hypoxemia G47.34 LAKESHA positive R76.8 CLARENCE (obstructive sleep apnea) G47.33 CPT Codes Coding ([id number])
[2024-11-21 16:26] VITALS: PULSE 90; O2SAT 90
== END 2024-11-21 16:04 | disposition home or self-care (01) ==
LOC: HO.HPSW 14:52
PROVIDERS: PCP Nurse Practitioner Family; Visit Provider Nurse Practitioner Family
DX: J84.9 Interstitial pulmonary disease, unspecified (principal); Z91.09 Other allergy status, other than to drugs and biological substances; J45.909 Unspecified asthma, uncomplicated; R91.8 Other nonspecific abnormal finding of lung field; I50.22 Chronic systolic (congestive) heart failure; G47.34 Idiopathic sleep related nonobstructive alveolar hypoventilation; R76.8 Other specified abnormal immunological findings in serum; G47.33 Obstructive sleep apnea (adult) (pediatric)
CPT/HCPCS: 99214; G2211

== ENCOUNTER 2025-02-13 14:34 | Outpatient (AMB) | payer MEDICARE, MEDICAID, SELFPAY ==
--- NOTE | 2025-02-13 14:45 | A.OFFVIS_ITS ---
Vital Signs 02/13/25 14:46 Height 5 ft Weight 145 lb 8 oz BMI 28.4 BP 112/78 Blood Pressure Location Lt brachial Position Sitting Pulse 83 Pulse Source Pulse Oximeter Pulse Oximetry (%) 93 Oxygen Delivery Method Room Air Intake Visit Reasons: Obstructive sleep apnea Allergies pineapple Allergy (Severe, Uncoded 02/13/25 14:50) rash birds Allergy (Unknown, Uncoded 02/13/25 14:50) Unknown HPI HPI Obstructive sleep apnea: Details: Marleni is a pleasant 79 year old female, never smoker, with underlying asthma, pulmonary nodules, interstitial lung disease, CAD, atrial fibrillation maintained on on eliquis, DMII, CHF on lasix 40 mg, CKDIII and GERD. Patient previously trialed prednisone for underlying ILD, unfortunately, she denied any symptomatic changes and there was minimal improvement on chest CT. Prior labs revealed +LAKESHA and has been established with Rheumatology with no significant correlation between +LAKESHA and ILD. She has been on continuous oxygen therapy, using 2L with exertion and 4L at NOC. Despite this, she experiences episodes of low oxygen saturation, mid 80s, particularly during movement without oxygen support. Previous sleep study revealed severe CLARENCE, after multiple failed attempts can not tolerate and patient returned equipment. Patient has been using ICS/LABA with moderate effect, awaiting levalbuterol. Patient currently denies respiratory symptoms other than dyspnea with exertion which improves with the use of supplemental oxygen. [facility] Medical History Persistent atrial fibrillation CAD (coronary artery disease), [place] coronary artery Amputated toe of right foot Family History Mother HTN (hypertension) Diabetes Cardiovascular disease Skin cancer Father Substance abuse Alcoholism Social History Household Members: Family Household Members Other:: daughter Housing: Apartment Do you presently have visiting nurse or other home services: No Alcohol intake: never Comment: pt refused all alarms Patient Tobacco Use Status: Never used Tobacco e-Cigarette/Vaping Use: Never Used Second Hand Smoke Exposure: No service: No Current occupational status: retired Current occupational exposures/hazards: No Cognitive needs: Yes Hearing needs: Yes Vision needs: No Review of Systems Const Denies chills, Denies excessive sweating, Denies fever(s), Denies headache(s) and Denies night sweats Eyes Denies dry eyes, Denies irritation and Denies itchy eyes ENT Reports Normal hearing present and Denies headache(s) Card Denies chest pain, Denies chest pain at rest, Denies chest pain with activity, Denies claudication, Denies leg edema, Reports dyspnea on exertion, Denies orthopnea and Denies paroxysmal nocturnal dyspnea Resp Denies chest congestion, Denies cough, Denies excessive phlegm production, Denies pain on inspiration, Denies pain with cough, Reports dyspnea on exertion, Denies stridor and Denies wheezing Musc Denies myalgias Neuro Reports Normal hearing present and Denies headache(s) Endo Denies excessive sweating Benji/Lymph Denies lymphadenopathy Aller/Immun Denies itchy eyes, Denies seasonal rhinorrhea and Denies wheezing Physical Exam Vital Signs: Last Vital Signs Pulse 83 02/13/25 14:46 BP 112/78 02/13/25 14:46 Pulse Ox 93 02/13/25 14:46 Oxygen Delivery Method Room Air 02/13/25 14:46 BMI result Body Mass Index 28.4 Const General: cooperative, healthy appearing, comfortable, no acute distress, well developed and alert Orientation/consciousness: patient oriented x3 Limitations: ambulation with cane HEENT Head: Yes normal to inspection, Yes normocephalic and Yes atraumatic Ears: hearing grossly normal bilaterally and external ears normal Eyes General: appearance normal, both eyes and all related structures Eyelids: Yes eyelids normal Sclerae: sclerae normal EOM: EOMs intact bilaterally Neck Neck: Yes normal visual inspection and Yes no lymphadenopathy Lymphatic: no lymphadenopathy noted Chest Chest palpation & inspection: normal inspection of the chest Resp Other: faint bibasilar inspiratory crackles Effort & Inspection: normal respiratory effort, able to speak in complete sentences, no audible wheezes, no cough, no stridor, not tachypneic, no tripod positioning and no use of accessory muscles Cardio Jugular venous distension: no JVD Rate: regular rate Rhythm: abnormal rhythm (afib) Skin Other: warm, dry General skin exam: no rashes or lesions noted Neuro General: patient oriented x3 Cranial nerves: Yes Normal hearing present Cognition (Neuro): normal cognition Extrem Other: trace pitting edema BLE General: Yes normal to inspection and Yes capillary refill normal Psych Appearance: grossly normal and well kempt Speech and movement: Normal speech and movement present and Clear speech present Affect: normal affect Attitude: cooperative Thought process: Normal thought process present Thought content: Normal thought content present Insight: Good insight present (Psych) Judgement: Good judgement present (Psych) Assessment & Plan Assessment & Plan (1) ILD (interstitial lung disease): Code(s): J84.9 - Interstitial pulmonary disease, unspecified Category: Medical (2) Environmental allergies: Code(s): Z91.09 - Other allergy status, other than to drugs and biological substances Category: Medical (3) Asthma: Code(s): J45.909 - Unspecified asthma, uncomplicated Category: Medical (4) Lung nodules: Code(s): R91.8 - Other nonspecific abnormal finding of lung field Category: Medical (5) CHF (congestive heart failure): Code(s): I50.9 - Heart failure, unspecified Category: Medical Qualifiers: Heart failure chronicity: chronic Heart failure type: systolic Qualified Code(s): I50.22 - Chronic systolic (congestive) heart failure (6) Nocturnal hypoxemia: Code(s): G47.34 - Idiopathic sleep related nonobstructive alveolar hypoventilation Category: Medical (7) LAKESHA positive: Code(s): R76.8 - Other specified abnormal immunological findings in serum Category: Medical (8) CLARENCE (obstructive sleep apnea): Comment: Code(s): G47.33 - Obstructive sleep apnea (adult) (pediatric) Category: Medical Plan Marleni reports ongoing dyspnea with exertion, requiring supplemental oxygen however has had difficulties transporting. At the last visit an order was sent for amrit to use as she would prefer this over B cylinder tanks however has yet to obtain. Encouraged patient's daughter to reach out to [facility] to attain as well as humidifier for O2. Discussed with the patient the importance of using oxygen therapy during physical activity to prevent hypoxia. We reviewed the challenges with the current oxygen supplier and the need for a humidifier and portable tanks to enhance her quality of life. She has an upcoming PFT in [facility] to evaluate her lung function and the potential for antifibrotic treatment if indicated. Patient has trialed BiPAP therapy however can not tolerate and has not been compliant for quite some time. Again discussed adverse effects of uncontrolled CLARENCE and patient understood the potential risks of not using. Chest CT 11/2024 continued to reveal ILD, with minimal change from prior chest CT 05/2024. Will continue to monitor. may need to consider prednisone vs antifibrotic however patient reluctant to trial any other medications at this time. Patient with h/o asthma, previously unable to obtain advair, obtained Symbicort and using with moderate effect. 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 All questions were answered and patient is in agreement of plan. Will follow up to review results or sooner if needed. Medications: Refilled levalbuterol HCl 1.25 mg (3 mL) inhalation Q4-6H PRN 270 mL 0RF shortness of breath or wheezing 90 days J45.909 - Unspecified asthma, uncomplicated, J84.9 - Interstitial pulmonary disease, unspecified Coding Level of Care Code Est Pt Level 4 (67064) Complex EM visit Add On G2211 Diagnoses ILD (interstitial lung disease) J84.9 Environmental allergies Z91.09 Asthma J45.909 Lung nodules R91.8 Chronic systolic congestive heart failure I50.22 Heart failure chronicity: chronic Heart failure type: systolic Nocturnal hypoxemia G47.34 LAKESHA positive R76.8 CLARENCE (obstructive sleep apnea) G47.33
[2025-02-13 14:46] VITALS: BP 112/78; PULSE 83; O2SAT 93; BMI 28.4
--- OUTSIDE RECORDS SUMMARY | 2025-02-13 15:28 | XMS_ITS | Clinical Summary ---
Author Organization [facility] Address [address] [address] Phone Care Team Providers Care Account Developer Name Role Phone Merlyn Power NP Primary Care Provider Allergies Active Allergy Reactions Criticality Noted Date Comments Pineapple Hives 03/18/2024 Medications ELIQUIS 5 mg tablet 02/01/2024 Active clopidogrel (PLAVIX) 75 mg tablet 02/01/2024 Active FARXIGA 5 mg tablet Take 5 mg by mouth every morning. 03/10/2024 Active digoxin (LANOXIN) 125 mcg tablet 02/01/2024 Active furosemide (LASIX) 40 MG tablet 02/01/2024 Active glipiZIDE (GLUCOTROL XL) 5 MG 24 hr tablet 02/29/2024 Active LANTUS SOLOSTAR U-100 INSULIN 100 unit/mL (3 mL) InPn injection pen 02/29/2024 Activ e insulin lispro (ADMELOG, HUMALOG) 100 unit/mL injection vial 02/29/2024 Acti ve lisinopril (PRINIVIL,ZESTR IL) 40 MG tablet 02/01/2024 Active metoprolol tartrate (LOPRESSOR) 50 MG tablet 02/01/2024 Active mirtazapine (REMERON) 7.5 MG tablet take 1 tablet by mouth everyday at bedtime 03/10/2024 Active omeprazole (PRILOSEC) 20 MG capsule 02/01/2024 Active predniSONE (DELTASONE) 10 MG tablet 02/22/2024 Active predniSONE (DELTASONE) 20 MG tablet 02/01/2024 Active rosuvastatin (CRESTOR) 10 MG tablet 02/01/2024 Active Social History Tobacco Use Types Packs/Day Years Used Date Smoking Tobacco: Never Assessed Education Answer Date Recorded Are you interested in more education? Not on tristen e 03/18/2024 Are you concerned about learning? Not on file 03/18/2024 No 03/18/2024 No 03/18/2024 Digital Access Answer Date Recorded No 03/18/2024 No 03/18/2024 Reliable internet access at home? Not on file 03/18/2024 Device with a working camera? Not on file Comments Unknown Sex and Gender Information Value Date Recorded Sex Assigned at Not on file Legal Sex Female 2:18 PM EDT Gender Identity Not on file Sexual Orientation Not on file Last Filed Vital Signs Vital Sign Reading Time Taken Comments Blood Pressure 106/71 03/18/2024 2:40 PM EDT Pulse 79 03/18/2024 2:40 PM EDT Temperature 36.2 C (97.2 F) 03/18/2024 2:40 PM EDT Respiratory Rate 18 03/18/2024 2:40 PM EDT Oxygen Saturation 98% 03/18/2024 2:40 PM EDT Inhaled Oxygen Concentration - - Weight - - Height - - Body Mass Index - - Plan of Treatment Health Maintenance Due Date Last Done Comments Adult Td,Tdap Booster 1947 CREATININE LEVEL 1945 LIPID PANEL 1947 POTASSIUM LEVEL 1947 DEPRESSION SCREENING 1959 SMOKING Hx and SMOKELESS TOB ACCO SCREENING 10/09/1960 HEPATITIS C SCREENING 10/09/1965 PNEUMOCOCCAL VACCINES (50+ y ears) (1 of 1 - PCV) 10/09/1997 ZOSTER VACCINES (1 of 2) 10/09/1997 OSTEOPOROSIS SCREENING INITI AL (ONE-TIME) 10/09/2012 RSV VACCINE (1 - 1-dose 75+ series) 10/09/2022 COVID-19 VACCINE ( - 2023-2 5 season) 2024 HEPATITIS A VACCINES Aged Out No long er eligible based on patient's age to complete this topic HIB VACCINES Aged Out No longer eligi ble based on patient's age to complete this topic MENINGOCOCCAL VACCINES (ACWY) Aged Out No longer eligible based on patient's age to complete this topic MENINGOCOCCAL VACCINES (B) Aged Out N o longer eligible based on patient's age to complete this topic Medical Devices Not on file Insurance [place] Member Subscriber Plan / Payer (Ef fective 2012-Present) Name:Marleni Babin Member ID:[id number] Relation to Subscriber:Self Name:Marleni Babin Subscriber ID:[id number] Payer ID:[id number] Group ID:Not on file Type:Medicare Address: [employer] [address] [place] Member Subscriber Plan / Payer (Ef fective 2012-Present) Name:Marleni Babin Member ID:[id number] Relation to Subscriber:Self Name:Marleni Babin Subscriber ID:[id number] Payer ID:[id number] Group ID:Not on file Type:Medicare Address: [facility] [employer] (powering [employer]) [facility] [address] [place] [address] Care Teams Account Developer Relationship Specialty Start Date End Date Merlyn Power NP [address] [place] [address] [place] [address] [email or web address] PCP - General Nurse Practitioner 03/18/24 Additional Source Comments The information contained in this document represents components of the legal health record. It is not the complete legal health record.[facility]
== END 2025-02-13 15:30 | disposition home or self-care (01) ==
LOC: HO.HPSW 14:35
PROVIDERS: PCP Nurse Practitioner Family; Visit Provider Nurse Practitioner Family
DX: J84.9 Interstitial pulmonary disease, unspecified (principal); Z91.09 Other allergy status, other than to drugs and biological substances; J45.909 Unspecified asthma, uncomplicated; R91.8 Other nonspecific abnormal finding of lung field; I50.22 Chronic systolic (congestive) heart failure; G47.34 Idiopathic sleep related nonobstructive alveolar hypoventilation; R76.8 Other specified abnormal immunological findings in serum; G47.33 Obstructive sleep apnea (adult) (pediatric)
CPT/HCPCS: 99214; G2211

== ENCOUNTER → 2025-02-13 14:34 | Outpatient (BNVA) | payer MEDICARE, MEDICAID, SELFPAY | PROVIDERS: PCP Nurse Practitioner Family; Visit Provider Nurse Practitioner Family | DX: G47.33 Obstructive sleep apnea (adult) (pediatric) (principal); J84.9 Interstitial pulmonary disease, unspecified; J45.909 Unspecified asthma, uncomplicated; R91.8 Other nonspecific abnormal finding of lung field; I50.22 Chronic systolic (congestive) heart failure; Z91.09 Other allergy status, other than to drugs and biological substances; G47.34 Idiopathic sleep related nonobstructive alveolar hypoventilation; R76.8 Other specified abnormal immunological findings in serum | CPT/HCPCS: 99212 ==

== ENCOUNTER 2025-02-20 13:43 | Outpatient (AMB) | payer MEDICARE, MEDICAID, SELFPAY ==
[2025-02-20 14:05] VITALS: BP 118/60; PULSE 81; BMI 28.0
--- NOTE | 2025-02-20 14:05 | A.OFFVIS_ITS ---
Vital Signs 02/20/25 14:05 Height 5 ft Weight 143 lb 4.807 oz BMI 28.0 BP 118/60 Blood Pressure Location Lt brachial Position Sitting Pulse 81 Pulse Source Monitor Intake Visit Reasons: 6m follow up Bar Machine Operator Multiple Spindle Required: Yes Bar Machine Operator Multiple Spindle Services: Bar Machine Operator Multiple Spindle Offered & Declined Accompanied by: Daughter Allergies pineapple Allergy (Severe, Uncoded 02/13/25 14:50) rash birds Allergy (Unknown, Uncoded 02/13/25 14:50) Unknown Medication List - Last Reconciled 02/20/25 by Raj Moise MD acetaminophen 500 mg PO DAILY amlodipine (Norvasc) 5 mg PO DAILY apixaban (Eliquis) 5 mg PO BID [BIPAP Bipap 20/06 device with medium airfit F20 mask, use QHS. ] blood sugar diagnostic (FreeStyle Lite Strips) Test four times a day or as directed. blood-glucose meter (FreeStyle Lite Meter kit) As Directed blood-glucose sensor (FreeStyle Harsha 3 Sensor device) As directed blood-glucose,upholstery trimmer,cont (FreeStyle Harsha 3 Solsberry) As directed budesonide-formoterol 160-4.5 mcg/actuation (Symbicort) 2 puffs inhalation Q12H cholecalciferol (vitamin D3) 1,250 mcg PO DAILY dapagliflozin propanediol (Farxiga) 5 mg PO QAM digoxin 125 mcg PO DAILY fluticasone propion-salmeterol 115-21 mcg/actuation (Advair HFA) 2 puffs inhalation Q12H furosemide 40 mg PO DAILY lancets (FreeStyle Lancets) Test four times a day or as directed. levalbuterol HCl 1.25 mg (3 mL) inhalation Q4-6H PRN 90 days lisinopril 40 mg PO DAILY metformin ER 500 mg PO QPM metoprolol tartrate 50 mg PO DAILY mirtazapine 30 mg PO BEDTIME multivitamin (Daily Multi-Vitamin tablet) 1 tab PO DAILY nystatin 1 appl topical BID PRN omega-3 fatty acids 500 mg PO DAILY omeprazole 20 mg PO DAILY@0630 pen needle, diabetic Use four times a day or as directed. psyllium husk (Metamucil) 1 tbsp PO DAILY rosuvastatin 10 mg PO DAILY HPI Comments Details: Marleni returns for follow-up. She carries a diagnosis of congestive heart failure and atrial fibrillation and previous ejection fraction in the 40s. After she moved here, could not get medications refilled and that led to atrial fibrillation with rapid rate and hospitalization. Then put on her usual medication regimen and she is much improved. Overall, she is feeling well. No clear cardiac concerns. Breathing at baseline. She comes in a wheelchair with her daughter. Uses supplemental oxygen at home. [facility] Medical History Persistent atrial fibrillation CAD (coronary artery disease), eek coronary artery Amputated toe of right foot Family History Mother HTN (hypertension) Diabetes Cardiovascular disease Skin cancer Father Substance abuse Alcoholism Social History Household Members: Family Household Members Other:: daughter Housing: Apartment Do you presently have visiting nurse or other home services: No Alcohol intake: never Comment: pt refused all alarms Patient Tobacco Use Status: Never used Tobacco e-Cigarette/Vaping Use: Never Used Second Hand Smoke Exposure: No service: No Current occupational status: retired Current occupational exposures/hazards: No Cognitive needs: Yes Hearing needs: Yes Vision needs: No Review of Systems Const Denies weakness ENT Denies dizziness Card Denies chest pain, Denies chest pain with activity, Denies syncope, Denies rapid heart rate, Denies pedal edema, Denies edema, Denies leg edema, Denies lightheadedness, Reports palpitations, Denies dyspnea, Denies dyspnea on exertion and Denies orthopnea Resp Denies cough, Denies dyspnea and Denies dyspnea on exertion GI Denies hematochezia and Denies change in stool character Musc Denies abnormal gait, Denies muscle cramps, Denies muscle weakness, Denies numbness, Denies radiating pain into limb and Denies tingling Neuro Denies abnormal gait, Denies dizziness, Denies syncope, Denies numbness, Denies tingling and Denies weakness Endo Reports palpitations Physical Exam Vital Signs: Last Vital Signs Pulse 81 02/20/25 14:05 BP 118/60 02/20/25 14:05 BMI result Body Mass Index 28.0 Const General: comfortable and no acute distress Orientation/consciousness: patient oriented x3 HEENT Other: Unremarkable Head: Yes normal to inspection Neck Neck: Yes normal visual inspection Chest Chest palpation & inspection: normal inspection of the chest Resp Auscultation: clear to auscultation bilaterally Cardio Palpation: normal PMI Heart sounds: S1 normal heart sound present, S2 normal heart sound present, no gallops, no murmurs and no rubs GI Palpation (GI): Soft to palpation Back/Spine/Pelvis Other: unremarkable Skin General skin exam: no rashes or lesions noted Neuro General: patient oriented x3 Extrem General: Yes normal to inspection Psych Mental Status: mental status grossly normal Office Procedures EKG Details: EKG with atrial fibrillation at 81/Min; rightward axis; incomplete right bundle- branch block. [id number], Complete Assessment & Plan Assessment & Plan (1) Persistent atrial fibrillation: Code(s): I48.19 - Other persistent atrial fibrillation Category: Medical (2) CHF (congestive heart failure): Code(s): I50.9 - Heart failure, unspecified Category: Medical Qualifiers: Heart failure chronicity: chronic Heart failure type: systolic Qualified Code(s): I50.22 - Chronic systolic (congestive) heart failure (3) Atherosclerotic cardiovascular disease: Code(s): I25.10 - Atherosclerotic heart disease of eek coronary artery without angina pectoris Category: Medical Plan Cardiac studies reviewed. EKG from [facility] shows atrial fibrillation rapid rate at 144/Min. In the Holter, underlying rhythm is atrial fibrillation with an average rate of 68/Min and thought to be overall well controlled. Echocardiogram with LVEF of 63%. Moderate mitral annular calcification. In the chest CT scan, description of moderate coronary artery calcification. Enlarged pulmonary arteries thought to be from pulmonary arterial hypertension. Emphysema. Myocardial perfusion imaging study shows normal perfusion. Overall, she is stable on the current regimen. For atrial fibrillation, continue beta-blockers/digoxin. Continue Eliquis. Check digoxin level/renal function. For coronary disease, continue statins. Last LDL 60 mg/dL. For congestive heart failure, on diuretics, Farxiga. Stable. Discussed with daughter who came for appointment. Discussion Notes I discussed with the patient the importance of monitoring her atrial fibrillation and maintaining her current medication regimen. We reviewed the need for a blood test to check digoxin levels before her morning dose. The use of supplemental oxygen and a wheelchair for longer distances was emphasized to manage her shortness of breath. Patient was informed and verbally consented to the use of an ambient scribe for clinic note documentation during this visit. Orders: Orders Digoxin Today I48.19 - Other persistent atrial fibrillation Basic Metabolic Panel Today I48.19 - Other persistent atrial fibrillation Coding Level of Care Code Est Pt Level 4 (14256) Complex EM visit Add On G2211 Diagnoses Persistent atrial fibrillation I48.19 Chronic systolic congestive heart failure I50.22 Heart failure chronicity: chronic Heart failure type: systolic Atherosclerotic cardiovascular disease I25.10 CPT Codes EKG - CPT: 06493-[id number], Complete ([id number])
--- OUTSIDE RECORDS SUMMARY | 2025-02-20 15:01 | XMS_ITS | Clinical Summary ---
Author Organization [facility] Address [address] [address] Phone Care Team Providers Care Wharf Tender Helper Name Role Phone Merlyn Power NP Primary [...] Payer (Ef fective 2012-Present) Name:Marleni Babin Member ID:[id number] Relation to Subscriber:Self Name:Marleni Babin Subscriber ID:[id number] Payer ID:[id number] Group ID:Not on file Type:Medicare Address: [address] [place] B Care Teams Wharf Tender Helper Relationship Specialty Start Date End Date Merlyn Powre NP [address] [place] [address] [place] [address] [email or web address] PCP - General Nurse Practitioner 03/18/24 Additional Source Comments The information contained in this document represents components of the legal health record. It is not the complete legal health record.[facility]
== END 2025-02-20 14:25 | disposition home or self-care (01) ==
LOC: HO.HCS 13:43
PROVIDERS: PCP Nurse Practitioner Family; Visit Provider Internal Medicine
DX: I48.19 Other persistent atrial fibrillation (principal); I50.22 Chronic systolic (congestive) heart failure; I25.10 Atherosclerotic heart disease of native coronary artery without angina pectoris
CPT/HCPCS: 93010; 99214; G2211

== ENCOUNTER → 2025-02-20 13:43 | Outpatient (BNVA) | payer MEDICARE, MEDICAID, SELFPAY | PROVIDERS: PCP Nurse Practitioner Family; Visit Provider Internal Medicine | DX: I48.19 Other persistent atrial fibrillation (principal); I50.22 Chronic systolic (congestive) heart failure; I25.10 Atherosclerotic heart disease of native coronary artery without angina pectoris | CPT/HCPCS: 93005; 99212 ==

== ENCOUNTER 2025-03-23 11:13 | Outpatient (REF) | payer MEDICARE, MEDICAID, SELFPAY ==
--- NOTE | 2025-03-23 11:22 | PFT_ITS ---
Flows: FEV1: 77 % of predicted at 1.34 L FVC: 64 % of predicted at 1.44 L FEV1/FVC: 93 % Bronchodilator response: Absent Volumes: Total lung capacity: 65 % of predicted at 2.77 L Residual volume: 72 % of predicted at 1.33 L Slow vital capacity: 61 % of predicted at 1.44 L Expiratory reserve volume: 49 % of predicted at 0.27 L Diffusion capacity: Moderately decreased Impression: Moderate restrictive ventilatory defect with no bronchodilator response. Combination of restrictive ventilatory defect with decreased diffusion capacity suggests underlying pulmonary parenchymal disease. Clinical correlation is advised. MTDD
--- OUTSIDE RECORDS SUMMARY | 2025-03-23 11:56 | XMS_ITS | Clinical Summary ---
Author Organization [facility] Address [address] [address] Phone Care Team Providers Care Mechanic/Welder Name Role Phone Merlyn Power NP Primary [...] VACCINE (1 - 1-dose 75+ series) 10/09/2022 INFLUENZA VACCINE (#1) 2025 COVID-19 VACCINE ( - 2023-2 5 season) 2025 HEPATITIS A VACCINES Aged Out No long [...] B [place] B [facility] MEDIC[facility] PART A & [facility] B Care Teams Mechanic/Welder Relationship Specialty Start Date End Date Merlyn Power NP [address] [place] [address] [place] [address] [email or web address] PCP - General Nurse Practitioner 03/18/24 Additional Source Comments The information contained in this document represents components of the legal health record. It is not the complete legal health record.[facility]
[2025-03-23 12:03] VITALS: PULSE 90; O2SAT 94
== END 2025-03-23 11:14 | disposition home or self-care (01) ==
LOC: HO.RESP 11:13
PROVIDERS: PCP Nurse Practitioner Family; Visit Provider Nurse Practitioner Family
DX: J45.909 Unspecified asthma, uncomplicated (principal); J84.9 Interstitial pulmonary disease, unspecified
CPT/HCPCS: 94010; 94640; 94727; 94729

== ENCOUNTER → 2025-03-23 11:22 | Outpatient (BNV) | payer MEDICARE, MEDICAID, SELFPAY | PROVIDERS: PCP Nurse Practitioner Family; Visit Provider Internal Medicine Pulmonary Disease | DX: J98.4 Other disorders of lung (principal) | CPT/HCPCS: 94060; 94727; 94729 ==

== ENCOUNTER 2025-04-10 14:44 | Outpatient (AMB) | payer MEDICARE, MEDICAID, SELFPAY ==
[2025-04-10 14:47] VITALS: BP 118/76; PULSE 90; O2SAT 91; BMI 29.4
--- NOTE | 2025-04-10 14:47 | MHC.OFFVIS ---
Vital Signs 04/10/25 14:47 Height 5 ft Weight 150 lb 6 oz BMI 29.4 BP 118/76 Blood Pressure Location Rt brachial Position Sitting Pulse 90 Pulse Source Pulse Oximeter Pulse Oximetry (%) 91 L Oxygen Delivery Method Room Air Intake Visit Reasons: Obstructive sleep apnea Allergies pineapple Allergy (Severe, Uncoded 04/10/25 14:50) rash birds Allergy (Unknown, Uncoded 04/10/25 14:50) Unknown HPI HPI Obstructive sleep apnea: Details: Marleni is a pleasant 79 year old female, never smoker, with underlying asthma, pulmonary nodules, interstitial lung disease, CLARENCE not compliant with CPAP, CAD, atrial fibrillation maintained on on eliquis, DMII, CHF on lasix 40 mg, CKDIII and GERD. Patient previously trialed prednisone for underlying ILD, unfortunately, she denied any symptomatic changes and there was minimal improvement on chest CT. Prior labs revealed +LAKESHA and has been established with Rheumatology with no significant correlation between +LAKESHA and ILD. She has been on continuous oxygen therapy, using 2L with exertion and 4L at NOC, as she can not tolerate CPAP for moderate CLARENCE, AHI 18. Patient has been using ICS/LABA with moderate effect continues with dyspnea. Denies cough, chest tightness or wheezing. Today she presents to review PFT results. She denies any visits to urgent care or hospitalizations related to respiratory distress. COUNTS INCLUDE 234 BEDS AT THE [facility] Medical History Persistent atrial fibrillation CAD (coronary artery disease), [place] coronary artery Amputated toe of right foot Family History Mother HTN (hypertension) Diabetes Cardiovascular disease Skin cancer Father Substance abuse Alcoholism Social History Household Members: Family Household Members Other:: daughter Housing: Apartment Do you presently have visiting nurse or other home services: No Alcohol intake: never Comment: pt refused all alarms Patient Tobacco Use Status: Never used Tobacco e-Cigarette/Vaping Use: Never Used Second Hand Smoke Exposure: No service: No Current occupational status: retired Current occupational exposures/hazards: No Cognitive needs: Yes Hearing needs: Yes Vision needs: No Review of Systems Const Denies chills, Denies excessive sweating, Denies fever(s), Denies headache(s) and Denies night sweats Eyes Denies dry eyes, Denies irritation and Denies itchy eyes ENT Reports Normal hearing present and Denies headache(s) Card Denies chest pain, Denies chest pain at rest, Denies chest pain with activity, Denies claudication, Denies leg edema, Reports dyspnea on exertion, Denies orthopnea and Denies paroxysmal nocturnal dyspnea Resp Denies chest congestion, Denies cough, Denies excessive phlegm production, Denies pain on inspiration, Denies pain with cough, Reports dyspnea on exertion, Denies stridor and Denies wheezing Musc Denies myalgias Neuro Reports Normal hearing present and Denies headache(s) Endo Denies excessive sweating Benji/Lymph Denies lymphadenopathy Aller/Immun Denies itchy eyes, Denies seasonal rhinorrhea and Denies wheezing Physical Exam Vital Signs: Last Vital Signs Pulse 90 04/10/25 14:47 BP 118/76 04/10/25 14:47 Pulse Ox 91 L 04/10/25 14:47 Oxygen Delivery Method Room Air 04/10/25 14:47 BMI result Body Mass Index 29.4 Const General: cooperative, healthy appearing, comfortable, no acute distress, well developed and alert Orientation/consciousness: patient oriented x3 Limitations: ambulation with cane HEENT Head: Yes normal to inspection, Yes normocephalic and Yes atraumatic Ears: hearing grossly normal bilaterally and external ears normal Eyes General: appearance normal, both eyes and all related structures Eyelids: Yes eyelids normal Sclerae: sclerae normal EOM: EOMs intact bilaterally Neck Neck: Yes normal visual inspection and Yes no lymphadenopathy Lymphatic: no lymphadenopathy noted Chest Chest palpation & inspection: normal inspection of the chest Resp Other: faint bibasilar inspiratory crackles Effort & Inspection: normal respiratory effort, able to speak in complete sentences, no audible wheezes, no cough, no stridor, not tachypneic, no tripod positioning and no use of accessory muscles Cardio Jugular venous distension: no JVD Rate: regular rate Rhythm: abnormal rhythm (afib) Skin Other: warm, dry General skin exam: no rashes or lesions noted Neuro General: patient oriented x3 Cranial nerves: Yes Normal hearing present Cognition (Neuro): normal cognition Extrem Other: trace pitting edema BLE General: Yes normal to inspection and Yes capillary refill normal Psych Appearance: grossly normal and well kempt Speech and movement: Normal speech and movement present and Clear speech present Affect: normal affect Attitude: cooperative Thought process: Normal thought process present Thought content: Normal thought content present Insight: Good insight present (Psych) Judgement: Good judgement present (Psych) Assessment & Plan Assessment & Plan (1) ILD (interstitial lung disease): Code(s): J84.9 - Interstitial pulmonary disease, unspecified Category: Medical (2) Environmental allergies: Code(s): Z91.09 - Other allergy status, other than to drugs and biological substances Category: Medical (3) Asthma: Code(s): J45.909 - Unspecified asthma, uncomplicated Category: Medical (4) Lung nodules: Code(s): R91.8 - Other nonspecific abnormal finding of lung field Category: Medical (5) CHF (congestive heart failure): Code(s): I50.9 - Heart failure, unspecified Category: Medical Qualifiers: Heart failure chronicity: chronic Heart failure type: systolic Qualified Code(s): I50.22 - Chronic systolic (congestive) heart failure (6) Nocturnal hypoxemia: Code(s): G47.34 - Idiopathic sleep related nonobstructive alveolar hypoventilation Category: Medical (7) LAKESHA positive: Code(s): R76.8 - Other specified abnormal immunological findings in serum Category: Medical (8) CLARENCE (obstructive sleep apnea): Comment: Code(s): G47.33 - Obstructive sleep apnea (adult) (pediatric) Category: Medical Plan Reviewed PFT which revealed moderate restrictive ventilatory defect with no bronchodilator response. Combination of restrictive ventilatory defect with decreased diffusion capacity suggests underlying pulmonary parenchymal disease. We again reviewed the possibility of NSIP vs UIP however rheumatology did not feel elevated LAKESHA was associated with underlying ILD. At the last visit an order was sent for trolley to use as she would prefer this over B cylinder tanks however has yet to obtain and daughter notes she has still not reached out to [facility] for equipment. Encouraged patient's daughter to reach out to [facility] to attain as well as humidifier for O2. Discussed with the patient the importance of using oxygen therapy during physical activity to prevent hypoxia. Patient has trialed BiPAP therapy however can not tolerate and has not been compliant for quite some time. She is not interested in retrialing despite reviewing adverse effects of untreated CLARENCE. Chest CT 11/2024 continued to reveal ILD, with minimal change from prior chest CT 05/2024. Will continue to monitor, order placed for repeat chest CT in 6 months which would be 05/2025. Previously patient did not respond to prednisone and discussed potential antifibrotic however patient adamantly refuses any further medications despite potential for progression of fibrosis. Advised patient to continue with Symbicort as well as levalbuterol PRN, in addition to supplemental oxygen to maintain oxygen saturation >92%. All questions were answered and patient is in agreement of plan. Will follow up to review results or sooner if needed. Coding Level of Care Code Est Pt Level 4 (33744) Complex EM visit Add On G2211 Diagnoses ILD (interstitial lung disease) J84.9 Environmental allergies Z91.09 Asthma J45.909 Lung nodules R91.8 Chronic systolic congestive heart failure I50.22 Heart failure chronicity: chronic Heart failure type: systolic Nocturnal hypoxemia G47.34 LAKESHA positive R76.8 CLARENCE (obstructive sleep apnea) G47.33
--- OUTSIDE RECORDS SUMMARY | 2025-04-10 18:01 | XMS_ITS | Clinical Summary ---
Author Organization [facility] Address [address] [address] Phone Care Team Providers Care Shank Cementer Hand Name Role Phone Merlyn Power NP Primary [...] VACCINE (#1) 2025 COVID-19 VACCINE ( - 2024-2 6 season) 2025 HEPATITIS A VACCINES Aged Out [...] B [place] B [facility] & [facility] B Care Teams Shank Cementer Hand Relationship Specialty Start Date End Date Merlyn Power NP [address] [place] [address] [place] [address] [email or web address] PCP - General Nurse Practitioner 03/18/24 Additional Source Comments The information contained in this document represents components of the legal health record. It is not the complete legal health record.[facility]
== END 2025-04-10 15:19 | disposition home or self-care (01) ==
LOC: HO.HPSW 14:45
PROVIDERS: PCP Nurse Practitioner Family; Visit Provider Nurse Practitioner Family
DX: J84.9 Interstitial pulmonary disease, unspecified (principal); Z91.09 Other allergy status, other than to drugs and biological substances; J45.909 Unspecified asthma, uncomplicated; R91.8 Other nonspecific abnormal finding of lung field; I50.22 Chronic systolic (congestive) heart failure; G47.34 Idiopathic sleep related nonobstructive alveolar hypoventilation; R76.89 Other specified abnormal immunological findings in serum; G47.33 Obstructive sleep apnea (adult) (pediatric)
CPT/HCPCS: 99214; G2211

== ENCOUNTER → 2025-04-10 14:44 | Outpatient (BNVA) | payer MEDICARE, MEDICAID, SELFPAY | PROVIDERS: PCP Nurse Practitioner Family; Visit Provider Nurse Practitioner Family | DX: G47.33 Obstructive sleep apnea (adult) (pediatric) (principal); G47.34 Idiopathic sleep related nonobstructive alveolar hypoventilation; Z99.89 Dependence on other enabling machines and devices; J84.9 Interstitial pulmonary disease, unspecified; J45.909 Unspecified asthma, uncomplicated; Z91.09 Other allergy status, other than to drugs and biological substances; R91.8 Other nonspecific abnormal finding of lung field; I50.22 Chronic systolic (congestive) heart failure; Z79.01 Long term (current) use of anticoagulants | CPT/HCPCS: 99212 ==

== ENCOUNTER 2025-05-08 15:24 | Outpatient (REF) | payer MEDICARE, MEDICAID, SELFPAY ==
[2025-05-08 17:37] LABS: Anion Gap 16 (12-20); Blood Urea Nitrogen 21 mg/dL (9-16); Calcium 9.4 mg/dL (8.4-10.2); Carbon Dioxide 24 mmol/L (22-29); Chloride 106 mmol/L (96-108); Estimated Glomerular Filt Rate > 60; Potassium 3.6 mmol/L (3.3-5.1); Sodium 142 mmol/L (135-145)
[2025-05-08 17:47] LABS: Digoxin < 0.2 ng/mL (0.8-2.0)
--- OUTSIDE RECORDS SUMMARY | 2025-05-08 18:11 | XMS_ITS | Clinical Summary ---
Author Organization [facility] Address [address] [address] Phone Care Team Providers Care Applications Programmer Analyst Name Role Phone Merlyn Power NP Primary [...] B [place] MEDIC[place] PART A & B [facility] A & [facility] B Care Teams Applications Programmer Analyst Relationship Specialty Start Date End Date Merlyn Power NP [address] [place] [address] [place] [phone] [email or web address] PCP - General Nurse Practitioner 03/18/24 Additional Source Comments The information contained in this document represents components of the legal health record. It is not the complete legal health record.[facility]
== END 2025-05-08 15:25 | disposition home or self-care (01) ==
LOC: HO.LAB 15:24
PROVIDERS: PCP Nurse Practitioner Family; Visit Provider Internal Medicine
DX: I48.19 Other persistent atrial fibrillation (principal)
CPT/HCPCS: 36415; 80048; 80162

== ENCOUNTER 2025-05-11 11:52 | Outpatient (REF) | payer MEDICARE, MEDICAID, SELFPAY ==
[2025-05-11 14:22] LABS: Hematocrit 46.7 % (37.0-47.0); Hemoglobin 14.8 g/dl (12.0-16.0); Mean Corpuscular HGB Conc 31.7 g/dl (31.0-35.0); Mean Corpuscular Hemoglobin 28.5 pg (27.0-33.0); Mean Corpuscular Volume 90.0 fL (80.0-98.0); NRBC Abs Auto 0.000 X10*3/uL (0.0-0.012); NRBC Pct Auto 0.0 /100WBC (0.0-0.2); Platelet Count 101 X10*3/uL (160-400); Red Blood Count 5.19 X10*6/uL (4.20-5.50); White Blood Count 7.5 X10*3/uL (4.8-10.8)
[2025-05-11 14:51] LABS: Cholesterol 146 mg/dL (<200); HDL Cholesterol 39 mg/dL (>40); Magnesium 2.5 mg/dL (1.6-2.6); Triglycerides 239 mg/dL (<150)
[2025-05-11 18:23] LABS: Appearance Urine Clear; Glucose Urine UA >=1000 mg/dL (Negative); PH 5.5 (5.0-9.0); Specific Gravity - Urine 1.010 (1.005-1.025); UMIC TRIGGER UACC YES
[2025-05-11 18:39] LABS: Microalbum/Creatinine Ratio Ur 946.3 ug/mg cr (<30)
== END 2025-05-11 11:53 | disposition home or self-care (01) ==
LOC: HO.WFDLDS 11:52
PROVIDERS: PCP Nurse Practitioner Family; Visit Provider Nurse Practitioner Family
DX: Z00.00 Encounter for general adult medical examination without abnormal findings (principal); E11.8 Type 2 diabetes mellitus with unspecified complications; E11.319 Type 2 diabetes mellitus with unspecified diabetic retinopathy without macular edema; E11.42 Type 2 diabetes mellitus with diabetic polyneuropathy; I25.119 Atherosclerotic heart disease of native coronary artery with unspecified angina pectoris; E78.2 Mixed hyperlipidemia; N18.31 Chronic kidney disease, stage 3a; E11.22 Type 2 diabetes mellitus with diabetic chronic kidney disease; I25.10 Atherosclerotic heart disease of native coronary artery without angina pectoris; Z78.0 Asymptomatic menopausal state; Z91.81 History of falling; Z23 Encounter for immunization; I48.0 Paroxysmal atrial fibrillation; Z71.89 Other specified counseling; Z78.9 Other specified health status
CPT/HCPCS: 36415; 80061; 81001; 82043; 82570; 83036; 83735; 84100; 85027; 90471; 90656; 96127; 99212; 99497

== ENCOUNTER 2025-05-11 11:52 | Outpatient (AMB) | payer MEDICARE, MEDICAID, SELFPAY ==
--- NOTE | 2025-05-11 11:55 | A.OFFVIS_ITS ---
Intake Vital Signs 05/11/25 12:04 Height 5 ft Weight 155 lb 6 oz BMI 30.3 BP 110/68 Blood Pressure Location Lt brachial Position Sitting Respiration 12 Pulse 49 L Pulse Source Pulse Oximeter Temp 97.3 F Temp Source Oral Pulse Oximetry (%) 82 L Oxygen Delivery Method Room Air Intake Visit Reasons: Annual wellness - see comment Intake Note: AWV Medical Representative Required: No Allergies pineapple Allergy (Severe, Uncoded 05/11/25 11:56) rash birds Allergy (Unknown, Uncoded 05/11/25 11:56) Unknown Medication List - Last Reconciled 05/11/25 by Merlyn Malone, MUSIC EXECUTIVE-BC acetaminophen 500 mg PO DAILY Advair HFA 115-21 mcg/actuation (fluticasone propion-salmeterol) 2 puffs inhalation Q12H NS amlodipine (Norvasc) 5 mg PO DAILY apixaban (Eliquis) 5 mg PO BID [BIPAP Bipap 17 device with medium airfit F20 mask, use QHS. ] blood sugar diagnostic (FreeStyle Lite Strips) Test four times a day or as directed. blood-glucose meter (FreeStyle Lite Meter kit) As Directed blood-glucose sensor (FreeStyle Harsha 3 Sensor device) As directed blood-glucose,metal control coordinator,cont (FreeStyle Harsha 3 [place]) As directed budesonide-formoterol 160-4.5 mcg/actuation (Symbicort) 2 puffs inhalation Q12H cholecalciferol (vitamin D3) 1,250 mcg PO DAILY dapagliflozin propanediol (Farxiga) 5 mg PO QAM digoxin 125 mcg PO DAILY furosemide 40 mg PO DAILY lancets (FreeStyle Lancets) Test four times a day or as directed. levalbuterol HCl 1.25 mg (3 mL) inhalation Q4-6H PRN 90 days lisinopril 40 mg PO DAILY metformin ER 500 mg PO QPM metoprolol succinate ER (Toprol XL) 50 mg PO DAILY mirtazapine 30 mg PO BEDTIME multivitamin (Daily Multi-Vitamin tablet) 1 tab PO DAILY nystatin 1 appl topical BID PRN omega-3 fatty acids 500 mg PO DAILY omeprazole 20 mg PO DAILY@0630 pen needle, diabetic Use four times a day or as directed. psyllium husk (Metamucil) 1 tbsp PO DAILY rosuvastatin 10 mg PO DAILY Do you need a note to return to daycare/school/sports/work: No HPI HPI Comments History of Present Illness Details Here today for AWV. The Medicare Annual Wellness Visit (AWV) is a yearly appointment with a health professional to identify health risks and help reduce them and to create or update a personalized prevention plan. During a Medicare AWV, health professionals should also review any current opioid prescriptions, detect any cognitive impairment, and establish or update medical and family history. 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 Mammo declined Colon cologaurd ordered today DEXA ordered today Pap NA DME 01/07/24 no diabetic retinopathy bilat. Flu 05/11/25, Tdap 2023 AAA screen: NA EKG: - An EKG performed today showed atrial fibrillation with RVR at a rate of 108. Specialists: [facility] Visual Acuity: glasses, Hearing Screening: no issues ACP: MOLST completed today with HCP Dietary/Nutrition/Exercise Edu provided: Y During the course of the visit the patient was educated and counseled about appropriate screening and preventative services. Patient instructions were provided to the patient in written or electronic format. I have reviewed and verified the above information. History of Present Illness The patient is a 79-year-old female presenting for an annual Medicare wellness visit. Cardiovascular history: - The patient has a history of atheroscl erosis of the [place] arteries of bilateral extremities, for which she takes rosuvastatin 10 mg. - Her last LDL was 60 on June 13. - She also has a history of cardiomyopat hy, atrial fibrillation, congestive heart failure, and angina, which are co-managed by cardiology at [facility]. - Her cardiac medications include amlodi pine, Eliquis, digoxin, lisinopril, and metoprolol 50 mg daily, which she reports taking without missed doses. - An EKG performed today showed atrial f ibrillation with RVR at a rate of 108. - She denies chest pain but reports a ch ronic burning sensation in her chest. - She reports baseline shortness of srinivas th that improves with her inhaler. Type 2 Diabetes Mellitus: - The patient has type 2 diabetes with c omplications of diabetic retinopathy and neuropathy. - She is managed on Farxiga 5 mg in the morning and metformin 500 mg after dinner and is no longer on insulin. - She uses a Zenith Epigeneticsyle Harsha device for monitoring and reports frequent episodes of nocturnal hypoglycemia, with blood sugars sometimes dropping into the 50s. - Low blood sugars account for about 12% of her readings, typically occurring around 3:00 AM. - She reports numbness in her R foot, wh ich is attributed to diabetic nerve damage. - Her A1c today was 7.0%. - Recent labs from May 08, 2025, melissa wed a random glucose of 83. Pulmonary history: - She has a history of obstructive sleep apnea and uses a CPAP machine, which is managed by pulmonology. - She also has chronic interstitial lung disease managed by pulmonology and takes Symbicort. Other Medical History: - For GERD, she takes omeprazole. - For sleep, she takes mirtazapine at be dtime, which helps but does not induce sleepiness until very late; she naps during the day. - The patient reports a burning sensatio n in R eye for the past week without drainage. This has improved w/ otc eye drops. She is overdue for DM eye exam and would like to be referred to [facility]. - The patient complains of significant l ow back pain which is chronic, she takes APAP for this. Advance Care Planning: - Her MOLST form was brought in and comp leted, indicating preferences for attempted resuscitation, intubation, ventilation, transfer to hospital, dialysis for short-term use only, and artificial nutrition/hydration. - Her healthcare proxy is Tracey, with Giovanny benitez as an alternate. Social History - The patient is a 79-year-old Ukrainian-s peaking female accompanied by her daughter.. - Functional status: The patient is depe ndent on others for cooking and cleaning but can dress and bathe herself. - She does not drive. - The patient has had no recent falls. - Her daughter assists with medication a dministration. - She has previously declined home help services. - Home environment: She lives in a handi cap-accessible unit with grab bars in the toilet and shower areas, which she uses. - The patient has gained 5 pounds and is concerned about her weight. - Advance Directives: The patient has a completed MOLST form and has designated a healthcare proxy. Health Maintenance - Cholesterol screening: An order will b e placed for labs, as they are now due. - Osteoporosis screening: A referral tierra l be placed for a bone density scan. - Colon cancer screening: An order will be placed for a home-based stool test, as the patient declined colonoscopy. - Breast cancer screening: Patient decli jordan a mammogram. - Diabetic eye exam: A referral will be sent to [facility] for a diabetic eye exam and evaluation of her burning eye symptom. - Immunizations: Patient will receive e flu shot today, she should complete her Shingles/Zoster vaccines and Pneumococcal vaccines @ the pharmacy. - Fall prevention: A referral will be pl aced for a Life Alert system. - Advance Directives: Completed and sign ed MOLST and Healthcare Proxy forms will be returned to the patient at the front office coordinator. Review of Systems - CONSTITUTIONAL: Reports a 5-pound weig ht gain. - EYES: Reports a burning sensation in o ne eye for the past week and a half. Denies eye drainage. - EARS: Reports past hearing test in [facility], no current concerns. - CARDIOVASCULAR: Denies chest pain. Rep orts a chronic burning sensation in the chest. - RESPIRATORY: Reports baseline shortnes s of breath. - MUSCULOSKELETAL: Reports significant l ow back pain. - NEUROLOGICAL: Reports numbness in her foot. Denies worry about her memory. - PSYCHIATRIC: Reports napping during e day and feels she does not sleep enough at night. - ENDOCRINE: Reports feeling weird dur ing episodes of hypoglycemia. Physical Exam General: Well developed, well nourished, in no acute distress. Accompanied by Dtr Head: Normocephalic, atraumatic. Eyes: Pupils are equal, round and reactive to light and accommodation. Conjunctivae are clear. Scleras nonicteric bilat. Reports burning sensation in R eye, no drainage noted. Ears: TMs clear AU, EACS WNL. Nose: Patent, without discharge. Neck: No carotid bruit bilat. Supple, no adenopathy or thyromegaly. Breast: Declined mammogram for breast cancer screening. Lungs: Dim throughout, clear No rales, rhonchi or wheeze noted. Heart: Irregular rate and rhythm due to AFib with RVR at a rate of 108. 1/6 murmurs, click, rubs or gallops are noted. Abdomen: Bowel sounds present in all quadrants. The abdomen is soft, nontender, with no masses or organomegaly noted. No hernias are noted. : Deferred. 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 BLE nonpalp pedal pulses, skin w chronic hemosiderin. Right foot s/p great and 2nd toe amps with well healed surgical incision. trace edema BLE Bilat hands w/ dupytrens contractures, Left ring finger mostly effected Neurologic: Gait and station normal. Cranial Nerves 2-12 intact. Motor strength grossly symmetrical and intact. Balance normal. Reports numbness in R foot post-surgery. She scored poor on the 6 CIT however she tells me she never learned to read or write so she doesnt know how to count backwards to say the months backwards. She is mildly forgetful. Albeit her mentation is now c/w the score on her 6 CIT. Skin: No rashes, ulcers, or lesions noted. Turgor is good. Skin color is good. Hair and nails are without abnormalities. Psych: Normal eye contact, affect and mood appropriate, and normal interactions. Patient is alert and appropriate to context. Results - Labs (05/08/2025): Normal electrolytes , normal renal function, random glucose 83, calcium of 9.4. - Labs (06/13/2024): LDL was 60. - Labs (Today): A1c 7.0%. - EKG (Today): Shows atrial fibrillation with rapid ventricular response at a rate of 108, with rightward axis and low voltage QRS. Medical Decision Making The patient is a 79-year-old female with a complex medical history presenting for her annual wellness visit. The most pressing issue identified today is atrial fibrillation with a rapid ventricular response (RVR) at 108 bpm on EKG. Although she is asymptomatic, the heart rate is elevated. To achieve better rate control, her metoprolol will be increased to 50 mg twice daily. I sent a Refugio Text to her Cards office to request a followup to reassess her heart rate, she will see her industrial engineering technician, Dr. Moise 05/14 at 2:30pm. The patient was instructed to seek emergency care for chest pain or syncope. Her diabetes management was also re-evaluated due to reports of nocturnal hypoglycemia, with blood glucose levels dropping into the 50s. Despite a recent A1c of 7.0%, the risk of low blood sugar outweighs the benefit of her current metformin dose. Therefore, I am discontinuing metformin and will not send a refill. She will continue Farxiga, which offers significant cardiovascular and renal benefits. Health maintenance screenings were discussed. She declined a mammogram but agreed to a bone density scan for osteoporosis screening given her low back pain, and a home-based stool test for colon cancer screening. An order for a lipid panel will be placed, as it is due. A referral will be sent to ophthalmology for her annual diabetic eye exam and to evaluate a new burning sensation in her eye. For fall prevention, a referral for a Life Alert system will also be made. Plan 1. Atrial Fibrillation With Rapid Ventri cular Response - The patient's EKG today showed atrial fibrillation with a heart rate of 108. - The patient denies acute symptoms like chest pain. - Plan is to increase metoprolol to 50 m g twice daily for improved rate control. - The patient was instructed to take an extra dose today upon returning home. - A follow-up appointment with [facility] 05/14 at 2:30pm - The patient and her daughter were advi sed to go to the hospital if she experiences chest pain or faints. 2. Type 2 Diabetes Mellitus With Hypogly cemia & neuropathy - The patient is experiencing episodes o f hypoglycemia, especially at night, while taking metformin and Farxiga. - Her A1c today was 7.0%. - Plan is to discontinue metformin at th is time to reduce the risk of hypoglycemia. - A refill for metformin will not be sen t, and the patient was advised to hold onto her remaining supply. - She will continue Farxiga 5 mg daily f or its heart and kidney benefits. Patient Instructions - Stop taking your metformin medication for now. Keep the remaining pills in case you need to restart them later. - You will now take your metoprolol 50 m g pill two times a day. - When you get home today, take one pill of metoprolol. Tomorrow, start taking it twice a day. - Go to the hospital if you have new [address] pain or feel like you are going to faint. - Please get your blood work done today to check your cholesterol. - You will get your flu shot today. - You will get a phone call to schedule a bone density scan, which is an X-ray of your hips and back. - A kit to test your stool for colon can cer screening will be mailed to your home. Please follow the instructions to mail it back. - We are sending a referral to [facility] for you to get an eye exam. - You will get a call about setting up a Life Alert medical alert service. - Please steel pickler your signed Healthcare Proxy and MOLST forms at the front office coordinator before you leave. - RTO in 3 mo for routine DM fu, sooner PRN Consent Discussions regarding health screenings were held with the patient and her daughter. The patient declined a mammogram for breast cancer screening. Verbal consent was obtained for a bone density scan after it was explained as an x-ray of her hips and back. The patient declined a colonoscopy but provided verbal consent to proceed with a home-based stool sample kit for colon cancer screening. Consent was obtained to administer the influenza vaccine. Verbal consent was obtained to perform a brief cognitive screening. Consent was obtained to place a referral for a Life Alert system after explaining the service. Patient was informed and verbally consented to the use of an ambient scribe for clinic note documentation during this visit. An additional 30 minutes was spent addressing the problem(s) noted at todays visit. This includes time spent before the visit reviewing the chart, time spent during the visit, and time spent after the visit on documentation reviewing laboratory results, diagnostic imaging, medications, performing a medically necessary evaluation, counseling on diagnoses, care coordination, ordering appropriate tests, ordering appropriate medications, review of tests performed by other providers, reporting test results with the patient, communication with other healthcare providers. [facility] Medical History (Updated 05/11/25 @ 14:34 by Merlyn Malone, MUSIC EXECUTIVE-) Amputated toe of right foot CAD (coronary artery disease), [place] coronary artery Insulin dose changed Persistent atrial fibrillation UTI (urinary tract infection) Vaginal yeast infection Family History Mother HTN (hypertension) Diabetes Cardiovascular disease Skin cancer Father Substance abuse Alcoholism Social History Household Members: Family Household Members Other:: daughter Housing: Apartment Do you presently have visiting nurse or other home services: No Alcohol intake: never Comment: pt refused all alarms Patient Tobacco Use Status: Never used Tobacco e-Cigarette/Vaping Use: Never Used Second Hand Smoke Exposure: No service: No Current occupational status: retired Current occupational exposures/hazards: No Cognitive needs: Yes Hearing needs: Yes Vision needs: No Questionnaire Medicare Wellness Checkup [age] What gender do you identify with?: female During the past 4 weeks, how much have you been bothered by emotional problems such as feeling anxious, depressed, irritable, sad or downhearted, and blue?: not at all During the past 4 weeks, has your physical & emotional health limited your social activities with family, friends, neighbors, or groups?: not at all During the past 4 weeks, how much bodily pain have you generally had?: very mild pain During the past 4 weeks, was someone available to help you if you needed & wanted help?: yes, as much as I wanted During the past 4 weeks, what was the hardest physical activity you could do for at least 2 minutes?: very light Can you get to places out of walking distance without help? (For eg., can you travel alone on buses, taxis or drive your car?): No Can you go shopping for groceries or clothes without someone's help?: No Can you prepare your own meals?: No Can you do your housework without help?: No Because of any health problems, do you need the help of another person with your personal care needs such as eating, bathing, dressing or getting around the house?: Yes Can you handle your own money without help?: No During the past 4 weeks, how would you rate your health in general?: good During the past 4 weeks how have things been going for you?: pretty well Are you having difficulties driving your car?: not applicable, I don't use a car Do you always fasten your seat belt when you are in a car?: yes, usually During past 4 weeks, have you been bothered by the following: never: Falling or dizzy when standing up, Sexual problems?, Trouble eating well?, Teeth or denture problems?, Problems using the telephone? and Tiredness or fatigue? Have you fallen 2 or more times in the past year?: No Are you afraid of falling?: Yes Are you a smoker?: no During the past 4 weeks, how many drinks of wine, beer, or other alcoholic beverages did you have?: no alcohol at all Do you exercise for about 20 minutes 3 or more times a week?: no, I usually do not exercise this much Have you been given information to help with the following?: no: Hazards in your house that might hurt you? and no: Keeping track of your medications? How often do you have trouble taking medicines the way you have been told to take them?: I always take medicine as prescribed How confident are you that you can control & manage most of your health problems?: very confident What is your race?: or origin or descent Activity of Daily Living Bathing - sponge bath, tub bath or shower: receives no assistance (gets in/out by self, if usual bathing means Dressing - getting clothes from closets & drawers, including inner/outer garments & fasteners.: gets clothes & gets completely dressed without help Toileting - going to the 'toilet room' for urine/bowel elimination & cleaning self/arranging clothes: receives help going to toilet room, cleaning self or arranging clothes Transfer: moves in & out of bed and chair without help (may use support object) Continence: has occasional 'accidents' Feeding: feeds self except getting help in cutting meat/buttering bread Total Score: 0 Information obtained from: informant Using telephone: needs assistance Traveling: dependent Shopping: dependent Preparing meals: dependent Housework: dependent Taking medicine: dependent Managing money: dependent PHQ-9 Over the last 2 weeks, how often have you been bothered by any of the following problems? 1. Little interest or pleasure in doing things: not at all 2. Feeling down, depressed, or hopeless: not at all 3. Trouble falling or staying asleep, or sleeping too much: not at all 4. Feeling tired or having little energy: not at all 5. Poor appetite or overeating: not at all 6. Feeling bad about yourself - or that you are a failure or have let yourself or your family down: not at all 7. Trouble concentrating on things, such as reading the newspaper or watching television: not at all 8. Moving or speaking so slowly that other people could have noticed. Or the opposite - being so fidgety or restless that you have been moving around a lot more than usual: not at all 9. Thoughts that you would be better off or of hurting yourself in some way: not at all Total score: 0 Depression Screening Interpretation: Negative Depression Screening Done: Yes 46667 - PHQ-9 Billing: Yes Source: Developed by Drs. Dat Mendes, Porsche Bah, Avila Matson and colleagues, with an educational frank from [employer]. Physical Exam Vital Signs: Last Vital Signs Temp 97.3 F 05/11/25 12:04 Pulse 49 L 05/11/25 12:04 Resp 12 05/11/25 12:04 BP 110/68 05/11/25 12:04 Pulse Ox 82 L 05/11/25 12:04 Oxygen Delivery Method Room Air 05/11/25 12:04 BMI result Body Mass Index 30.3 Office Procedures EKG [id number], Complete Glucose Monitoring Details Details: CGM reviewed. 90 day gmi shows 6.2% 74% in range 12% less than 69 13% 181-250 Greater than 250 1% Daily Graph/Patterns show hypoglycemia starting around 03:00 and lasting until 6am. The only spikes that she has is around 14:00. 73315 - Glucose monitoring, continuous-physician I&R Procedure code (CPT) selection complete Flu Questionnaire Does the patient have a severe egg allergy?: No Does the patient have severe life threatening allergies?: No Does the patient have a fever or illness today?: No Has the patient ever had Guillain-[place] Syndrome?: No Has the patient ever had any past reaction to a flu shot?: No Vision Screening Right Eye: 20/40 Left Eye: 20/40 Bilateral: 20/40 Color: Pass Corrected: Pass (wear glasses) 95580 - Vision Screening Results AMB Hemoglobin A1c AMB Hemoglobin A1c 7.0 % Last Edit by Froylan Valdivia MA on 05/11/25 12:23 Immunizations Fluarix [id number] (PF) 45 mcg (15 mcg x 3)/0.5 mL IM syringe Performing Provider: KIKO Tobias [place] [facility] Administered by: Helena Loya CMA on 05/11/25 12:59 Dose Route Admin Location Dispensed Lot Number Expiration Date NDC [address] 0.5 mL IM Left Deltoid 0.5 mL [id number] 01/01/26 87457-897-06 [employer] VIS Given Date VIS Provided VIS Publication Date 05/11/25 Single Vaccine 24 Eligibility Eligibility Date Funding Source Not [facility] Eligible 05/11/25 Private Results Reviewed Results Reviewed: Laboratory Last Values Hgb A1c (Clinic) 7.0 % (4.0-6.0) H 05/11/25 12:16 Assessment & Plan Assessment & Plan (1) Encounter for subsequent annual wellness visit (AWV) in Medicare patient: Onset Date: ~05/11/25 Code(s): Z00.00 - Encounter for general adult medical examination without abnormal findings (2) Diabetes mellitus type 2 with complications: Comment: HTN and HLD Code(s): E11.8 - Type 2 diabetes mellitus with unspecified complications (3) Diabetic retinopathy: Comment: This was noted in her medical records. refer for diabetic eye exam Code(s): E11.319 - Type 2 diabetes mellitus with unspecified diabetic retinopathy without macular edema Qualifiers: Diabetes mellitus macular edema: macular edema presence unspecified Diabetes mellitus type: type 2 Diabetic retinopathy severity: with unspecified retinopathy severity Laterality: unspecified laterality Qualified Code(s): E11.319 - Type 2 diabetes mellitus with unspecified diabetic retinopathy without macular edema (4) Diabetic peripheral neuropathy: Comment: affecting lower ext Foot care and blood glucose control is the plan Code(s): E11.42 - Type 2 diabetes mellitus with diabetic polyneuropathy (5) Coronary artery disease with angina pectoris: Comment: Maintained on Plavix, lisinopril 40 mg p.o. daily, metoprolol, amlodipine. Last episode of angina occurring less than 12 months ago. Code(s): I25.119 - Atherosclerotic heart disease of [place] coronary artery with unspecified angina pectoris Qualifiers: Coronary Disease-Associated Artery/Lesion type: [place] artery [place] vs. transplanted heart: [place] heart Qualified Code(s): I25.119 - Atherosclerotic heart disease of [place] coronary artery with unspecified angina pectoris (6) Hyperlipidemia: Comment: LDL goal will be less than 70 onRosuvastatin 10mg po QD. Code(s): E78.5 - Hyperlipidemia, unspecified Qualifiers: Hyperlipidemia type: mixed hyperlipidemia Qualified Code(s): E78.2 - Mixed hyperlipidemia (7) CKD (chronic kidney disease) stage 3, GFR 30-59 ml/min: Comment: 10/2023 eGFR 58 Labs from October 16 2023 show normal electrolytes BUN 17, creatinine 0.9,, random glucose 195 phosphorus, magnesium, normal calcium, vitamin-D pending, elevated parathyroid hormone 97.8, elevated urine microalbumin creatinine ratio 83.8 Code(s): N18.30 - Chronic kidney disease, stage 3 unspecified Qualifiers: Chronic kidney disease stage 3 subtype: stage 3a (GFR 45-59) Qualified Code(s): N18.31 - Chronic kidney disease, stage 3a (8) Atherosclerotic cardiovascular disease: Code(s): I25.10 - Atherosclerotic heart disease of [place] coronary artery without angina pectoris (9) Menopause: Code(s): Z78.0 - Asymptomatic menopausal state (10) Risk for falls: Code(s): Z91.81 - History of falling (11) Influenza vaccination administered at current visit: Onset Date: ~05/11/25 Code(s): Z23 - Encounter for immunization (12) Afib: Comment: in RVR at this time, increase BB and f/u with cards on Wednesday She is usually Rate controlled on Eliquis and metoprolol. Code(s): I48.91 - Unspecified atrial fibrillation Qualifiers: Atrial fibrillation type: paroxysmal Qualified Code(s): I48.0 - Paroxysmal atrial fibrillation (13) Amputated toe of right foot: Comment: current, right foot 1st and 2nd toe amputation Code(s): S98.131A - Complete traumatic amputation of one right lesser toe, initial encounter (14) ACP (advance care planning): Code(s): Z71.89 - Other specified counseling (15) Physician orders for life-sustaining treatment (POLST) form indicates patient wish for full code resuscitation status: Onset Date: ~05/11/25 Code(s): Z78.9 - Other specified health status Plan . Orders: Orders Lipid Panel Today E11.8 - Type 2 diabetes mellitus with unspecified c omplications, E78.2 - Mixed hyperlipidemia, I25.10 - Atherosclerotic heart disease of [place] coronary artery without angina pectoris, I25.119 - Atherosclerotic heart disease of [place] coronary artery with unspecified angina pectoris, N18.31 - Chronic kidney disease, stage 3a Microalbumin, Random (w Creat) Today E11.8 - Type 2 diabetes mellitus with unspecified complications, E78.2 - Mixed hyperlipidemia, I25.10 - Atherosclerotic heart disease of [place] coronary artery without angina pectoris, I25.119 - Atherosclerotic heart disease of [place] coronary artery with unsp ecified angina pectoris, N18.31 - Chronic kidney disease, stage 3a XR DEXA axial skeleton Today Z13.820 - Encounter for screening for osteoporosis, Z78.0 - Asymptomatic menopausal state AMB Hemoglobin A1c Today E11.319 - Type 2 diabetes mellitus with unspecified diabetic retinopathy without macular edema, E11.42 - Type 2 diabetes mellitus with diabetic polyneuropathy, E11.8 - Type 2 diabetes mellitus with unspecified complications, Z13.9 - Encounter for screening, unspecified Complete Blood Count no Diff Today E11.8 - Type 2 diabetes mellitus with unspecified complications, E78.2 - Mixed hyperlipidemia, I25.10 - Atherosclerotic heart disease of [place] coronary artery without angina pectoris, I25.119 - Atherosclerotic heart disease of [place] coronary artery with unspecified angina pectoris, N18.31 - Chronic kidney disease, stage 3a UA CC w/rflx Micro + Cult Today E11.8 - Type 2 diabetes mellitus with unspecified complications, E78.2 - Mixed hyperlipidemia, I25.10 - Atherosclerotic heart disease of [place] coronary artery without angina pectoris, I25.119 - Atherosclerotic heart disease of [place] coronary artery with unspecified angina pectoris, N18.31 - Chronic kidney disease, stage 3a, R30.0 - Dysuria Magnesium Today I48.0 - Paroxysmal atrial fibrillation Phosphorus Today I48.0 - Paroxysmal atrial fibrillation Influenza [id number] Immunization Today Z23 - Encounter for immunization Referrals Ophthalmology Referral E11.8 - Type 2 diabetes mellitus with unspecified complications Cologuard Test Z12.11 - Encounter for screening for malignant neoplasm of colon Nurse Navigator Referral Z91.81 - History of falling Medications: Changed From metoprolol succinate ER (Toprol XL) 50 mg PO DAILY 90 tabs 3RF To metoprolol succinate ER (Toprol XL) 50 mg PO BID 90 tabs 3RF Discontinued metformin ER Discontinued Reason: Doctor's Order 500 mg PO QPM 90 tabs 1RF Patient Instructions: Health screenings for women You should visit your health care provider from time to time, even if you are healthy. The purpose of these visits is to: Screen for medical issues Assess your risk for future medical problems Encourage a healthy lifestyle Update vaccinations and other preventive care services Help you get to know your provider in case of an illness Information Even if you feel fine, you should still see your provider for regular checkups. These visits can help you avoid problems in the future. For example, the only way to find out if you have high blood pressure is to have it checked regularly. High blood sugar and high cholesterol levels also may not have any symptoms in the early stages. A simple blood test can check for these conditions. There are specific times when you should see your provider or receive specific health screenings. The [place] Preventive Services Task Force publishes a list of recommended screenings. Below are screening guidelines for women ages 18 to 39. BLOOD PRESSURE SCREENING Your blood pressure should be checked at least once every 3 to 5 years if: Your blood pressure is in the normal range (top number less than 120 mm Hg and bottom number less than 80 mm Hg) You don't have risk factors for high blood pressure Ask your provider if you need your blood pressure checked more often if: The top number is 120 to 129 mm Hg or the bottom number is 70 to 79 mm Hg You have diabetes, heart disease, kidney problems, are overweight, or have certain other health conditions You have a first-degree relative with high blood pressure You are Black You had high blood pressure during a If the top number is 130 mm Hg or greater or the bottom number is 80 mm Hg or greater, this is considered stage 1 hypertension. Schedule an appointment with your provider to learn how you can reduce your blood pressure. Watch for blood pressure screenings in your area. Ask your provider if you can stop in to have your blood pressure checked. BREAST CANCER SCREENING Experts do not agree about the benefits of breast self-exams in finding breast cancer or saving lives. Talk to your provider about what is best for you. A screening mammogram is not recommended for most women under age 40. Your provider may discuss and recommend mammograms, MRI scans, or ultrasounds if you have an increased risk for breast cancer, such as: A mother or sister who had breast cancer at a young age (most often starting screening earlier than the age the close relative was diagnosed) You carry a high-risk genetic marker CERVICAL CANCER SCREENING Cervical cancer screening should start at age 21 years unless your provider advises otherwise. After the first test: Women ages 21 through 29 should have a Pap test every 3 years. Exoprts do not agree on whether HPV testing is recommended for this age group. Women ages 30 through 65 should be screened with either a Pap test every 3 years or the HPV test every 5 years or both tests every 5 years (called cotesting ). Women who have been treated for precancer (cervical dysplasia) should continue to have Pap tests for 20 years after treatment or until age 65, whichever is longer. If you have had your uterus and cervix removed (total hysterectomy), and you have not been diagnosed with cervical cancer or precancer (high grade cervical neoplasia), you do not need cervical cancer screening. CHOLESTEROL SCREENING Cholesterol screening should begin at: Age 45 for women with no known risk factors for coronary heart disease Age 20 for women with known risk factors for coronary heart disease Repeat cholesterol screening should take place: Every 5 years for women with normal cholesterol levels More often if changes occur in lifestyle (including weight gain and diet) More often if you have diabetes, heart disease, kidney problems, or certain other conditions DIABETES SCREENING You should be screened for diabetes starting at age 35 and then repeated every 3 years if you have no risk factors for diabetes. Screening may need to start earlier and be repeated more often if you have other risk factors for diabetes, such as: You have a first degree relative with diabetes. You are overweight or have obesity. You have high blood pressure, prediabetes, or a history of heart disease. Screening for diabetes should be done if you are planning to become and you are overweight and have other risk factors such as high blood pressure. DENTAL EXAM Go to the dentist once or twice every year for an exam and cleaning. Your dentist will evaluate if you need more frequent visits. EYE EXAM Have an eye exam every 5 to 10 years before age 40. If you have vision problems, have an eye exam every 2 years or more often if recommended by your provider. You should have an eye exam that includes an examination of your retina (back of your eye) at least every year if you have diabetes. IMMUNIZATIONS Commonly needed vaccines include: Flu shot: get one every year. COVID-19 vaccine: ask your provider what is best for you. Tetanus-diphtheria and acellular pertussis (Tdap) vaccine: have one at or after age 19 as one of your tetanus-diphtheria vaccines if you did not receive it as an adolescent. Tetanus-diphtheria: have a booster (or Tdap) every 10 years. Varicella vaccine: receive 2 doses if you never had chickenpox or the varicella vaccine. Hepatitis B vaccine: receive 2, 3, or 4 doses, depending on your exact circumstances. Measles, mumps, and rubella (MMR) vaccine: receive 1 to 2 doses if you are not already immune to MMR. Your provider can tell you if you are immune. Ask your provider about the human papillomavirus (HPV) vaccine if: You have not received the HPV vaccine in the past You have not completed the full vaccine series (you should catch up on this shot) Ask your provider if you should receive other immunizations if you have certain health problems that increase your risk for some diseases such as pneumonia. INFECTIOUS DISEASE SCREENING Women who are sexually active should be screened for chlamydia and gonorrhea up until age 25. Women 25 years and older should be screened for chlamydia and gonorrhea if at high risk. Screening for hepatitis C: All adults ages 18 to 79 should get a one-time test for hepatitis C. people should be screened at every . Screening for human immunodeficiency virus (HIV): All people ages 15 to 65 should get a one-time test for HIV. Depending on your lifestyle and medical history, you may also need to be screened for infections such as syphilis and HIV, as well as other infections. PHYSICAL EXAM All adults should visit their provider from time to time, even if they are healthy. The purpose of these visits is to: Screen for disease Assess your risk of future medical problems Encourage a healthy lifestyle Update your vaccinations and other preventive care services Maintain a relationship with a provider in case of an illness Your height, weight, and BMI should be checked at every exam. During your exam, your provider may ask you about: Depression and anxiety Diet and exercise Alcohol and tobacco use Safety issues, such as using seat belts, smoke detectors, and intimate partner violence Your medicines and risk for interactions SKIN SELF-EXAM Your provider may check your skin for signs of skin cancer, especially if you're at high risk, such as if you: Have had skin cancer before Have close relatives with skin cancer Have a weakened immune system OTHER SCREENING Talk with your provider about colon cancer screening if you have a strong family history of colon cancer or polyps, or if you have had inflammatory bowel disease or polyps yourself. Routine bone density screening of women under 40 is not recommended. Quality Reporting (2019) Adult ([facility] 138/2/22/69) Smoking risk assessment performed?: Yes Patient Tobacco Use Status: Never used Tobacco Depression screening performed: Yes Screen Results: Yes Negative screen Systolic BP not done?: No Diastolic BP not done?: No BMI screening not done: No Sexual Activity Screening ([facility] 153) Sexually active?: No Immunizations ([facility] 147, 117) Annual Influenza Vaccine: Yes Measles Antibody Test: No Mumps Antibody Test: No Rubella Antibody Test: No Varicella Antibody Test: No Anti Hepatitis A IgG Antigen test: No Anti Hepatitis B Virus Surface Ab test: No Fall Risk Screening ([facility] 139) Last assessed Fall Risk: 05/11/25 Fall risk assessment: No Falls in past year Dementia Assessment ([facility] 149) Cognitive assessment recorded: Yes Assessment of cognition with standardized tool: Yes Depression/Bipolar (159/160/161/177) PHQ-9: Total score: 0 Ophthalmol:Cataracts Visual Acuity (133) Visual acuity exam performed: Yes Coding Level of Care Code Medicare Subsequent (G0439) Est Pt Level 4 (68063) Diagnoses Encounter for subsequent annual wellness visit (AWV) in Medicare patient Z00.00 Diabetes mellitus type 2 with complications E11.8 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 transplanted heart: [place] heart Mixed hyperlipidemia E78.2 Hyperlipidemia type: mixed hyperlipidemia Stage 3a chronic kidney disease N18.31 Chronic kidney disease stage 3 subtype: stage 3a (GFR 45-59) Atherosclerotic cardiovascular disease I25.10 Menopause Z78.0 Risk for falls Z91.81 Influenza vaccination administered at current visit Z23 Paroxysmal atrial fibrillation I48.0 Atrial fibrillation type: paroxysmal Amputated toe of right foot S98.131A ACP (advance care planning) Z71.89 Physician orders for life-sustaining treatment (POLST) form indicates patient wish for full code resuscitation status Z78.9 CPT Codes Advance Care Planning - Time spent: 16-45 minutes ([id number]) EKG - CPT: 68194-[id number], Complete ([id number]) Details - CPT: 93057 - Glucose monitoring, continuous-physician I&R ([id number]) Vision Screening - Vision Screenin - Vision Screening ([id number]) Additional Codes PHQ-9 - 74627 - PHQ-9 Billing: Yes ([id number]) Advance Care Planning Advance Care Planning discussion: Completed/Scanned Date of discussion: 05/11/25 Who was present: dtr and patient Forms completed: Health Care Proxy, MOLST and Living will Time spent: 16-45 minutes Actual minutes spent: 16
[2025-05-11 12:04] VITALS: BP 110/68; PULSE 49; RESP 12; TEMP 36.3; O2SAT 82; BMI 30.3
--- OUTSIDE RECORDS SUMMARY | 2025-05-11 14:17 | XMS_ITS | Clinical Summary ---
Author Organization [facility] Address [address] [address] Phone Care Team Providers Care Mri Assistant Name Role Phone Merlyn Power NP Primary [...] [place] A & B [facility] & [facility] B Care Teams Mri Assistant Relationship Specialty Start Date End Date Merlyn Power NP [address] [place] [address] [place] [address] [email or web address] PCP - General Nurse Practitioner 03/18/24 Additional Source Comments The information contained in this document represents components of the legal health record. It is not the complete legal health record.[facility]
== END 2025-05-11 13:01 | disposition home or self-care (01) ==
LOC: HO.HMCFM 11:53
PROVIDERS: PCP Nurse Practitioner Family; Visit Provider Nurse Practitioner Family
DX: Z00.00 Encounter for general adult medical examination without abnormal findings (principal); I12.9 Hypertensive chronic kidney disease with stage 1 through stage 4 chronic kidney disease, or unspecified chronic kidney disease; I48.0 Paroxysmal atrial fibrillation; E11.42 Type 2 diabetes mellitus with diabetic polyneuropathy; E11.319 Type 2 diabetes mellitus with unspecified diabetic retinopathy without macular edema; N18.31 Chronic kidney disease, stage 3a; E78.2 Mixed hyperlipidemia; I25.10 Atherosclerotic heart disease of native coronary artery without angina pectoris; Z23 Encounter for immunization; Z78.0 Asymptomatic menopausal state; Z91.81 History of falling; Z89.421 Acquired absence of other right toe(s)

== ENCOUNTER → 2025-05-15 13:15 | Outpatient (REF) | payer MEDICARE, MEDICAID, SELFPAY ==
--- OUTSIDE RECORDS SUMMARY | 2025-05-15 14:56 | XMS_ITS | Clinical Summary ---
Author Organization [facility] Address [address] [address] Phone Care Team Providers Care It Risk And Assurance Manager Name Role Phone Merlyn Power NP Primary [...] B [place] PART [place] & B [facility] A & [facility] B Care Teams It Risk And Assurance Manager Relationship Specialty Start Date End Date Merlyn Power NP [address] [place] [address] [place] [address] [email or web address] PCP - General Nurse Practitioner 03/18/24 Additional Source Comments The information contained in this document represents components of the legal health record. It is not the complete legal health record.[facility]
== END ==
LOC: HO.CARD 13:15
PROVIDERS: PCP Nurse Practitioner Family; Visit Provider Internal Medicine
DX: I48.19 Other persistent atrial fibrillation (principal)
CPT/HCPCS: 93242

== ENCOUNTER → 2025-05-15 13:18 | Outpatient (BNV) | payer MEDICARE, MEDICAID, SELFPAY | PROVIDERS: PCP Nurse Practitioner Family; Visit Provider Internal Medicine | DX: I48.91 Unspecified atrial fibrillation (principal); I49.3 Ventricular premature depolarization | CPT/HCPCS: 93244 ==